=== PATIENT | female | born 1990 | race Asian ===

== ENCOUNTER 2020-03-02 07:52 | Outpatient (REF) | payer OTHER, SELFPAY ==
[2020-03-02 11:53] LABS: Alanine Aminotransferase 31 U/L (0-31); Anion Gap 15 (12-20); Aspartate Amino Transferase 19 U/L (5-31); Blood Urea Nitrogen 12 mg/dL (9-16); Calcium 8.3 mg/dL (8.4-10.2); Carbon Dioxide 20 mmol/L (22-29); Chloride 106 mmol/L (96-108); Cholesterol 169 mg/dL; Estimated Glomerular Filt Rate > 60; Glucose Fasting 140 mg/dL (60-99); HDL Cholesterol 36 mg/dL; LDL Cholesterol Calculated 110 mg/dl; Potassium 4.2 mmol/l (3.3-5.1); Sodium 137 mmol/L (135-145); Triglycerides 118 mg/dL
[2020-03-02 12:10] LABS: Estimated Average Glucose 151 mg/dL; Hemoglobin A1c % 6.9 %
[2020-03-02 12:17] LABS: Vitamin D 25-OH Total 37.6 ng/mL (>30)
== END 2020-03-02 07:53 | disposition home or self-care (01) ==
LOC: HO.HMGCLDS 07:52
PROVIDERS: PCP Internal Medicine; Visit Provider Internal Medicine
DX: E11.9 Type 2 diabetes mellitus without complications (principal); E78.5 Hyperlipidemia, unspecified; E66.01 Morbid (severe) obesity due to excess calories; Z68.39 Body mass index [BMI] 39.0-39.9, adult; E55.9 Vitamin D deficiency, unspecified
CPT/HCPCS: 80048; 80061; 82306; 83036; 84450; 84460

== ENCOUNTER 2020-05-25 07:50 | Outpatient (REF) | payer OTHER, SELFPAY ==
[2020-05-25 11:46] LABS: Alanine Aminotransferase 47 U/L (0-31); Anion Gap 15 (12-20); Aspartate Amino Transferase 31 U/L (5-31); Blood Urea Nitrogen 10 mg/dL (9-16); Calcium 8.6 mg/dL (8.4-10.2); Carbon Dioxide 22 mmol/L (22-29); Chloride 103 mmol/L (96-108); Cholesterol 136 mg/dL; Estimated Glomerular Filt Rate > 60; Glucose Fasting 144 mg/dL (60-99); HDL Cholesterol 39 mg/dL; LDL Cholesterol Calculated 74 mg/dl; Sodium 136 mmol/L (135-145); Triglycerides 117 mg/dL
[2020-05-25 11:54] LABS: Estimated Average Glucose 143 mg/dL; Hemoglobin A1c % 6.6 %
[2020-05-25 11:57] LABS: Creatinine Urine 72.85 mg/dL; Microalbum/Creatinine Ratio Ur 78.2 ug/mg cr
== END 2020-05-25 07:51 | disposition home or self-care (01) ==
LOC: HO.HMGCLDS 07:50
PROVIDERS: PCP Internal Medicine; Visit Provider Internal Medicine
DX: E66.9 Obesity, unspecified (principal); E78.5 Hyperlipidemia, unspecified; E11.9 Type 2 diabetes mellitus without complications; I10 Essential (primary) hypertension
CPT/HCPCS: 36415; 80048; 80061; 82043; 83036; 84450; 84460

== ENCOUNTER 2020-09-29 07:51 | Outpatient (REF) | payer OTHER, SELFPAY ==
[2020-09-29 12:21] LABS: Estimated Average Glucose 154 mg/dL
[2020-09-29 12:36] LABS: Alanine Aminotransferase 53 U/L (0-31); Anion Gap 13 (12-20); Aspartate Amino Transferase 36 U/L (5-31); Blood Urea Nitrogen 11 mg/dL (9-16); Calcium 8.7 mg/dL (8.4-10.2); Carbon Dioxide 23 mmol/L (22-29); Chloride 107 mmol/L (96-108); Cholesterol 161 mg/dL; Estimated Glomerular Filt Rate > 60; Glucose Fasting 137 mg/dL (60-99); HDL Cholesterol 34 mg/dL; LDL Cholesterol Calculated 98 mg/dl; Potassium 4.1 mmol/L (3.3-5.1); Sodium 139 mmol/L (135-145); Triglycerides 145 mg/dL
== END 2020-09-29 07:52 | disposition home or self-care (01) ==
LOC: HO.HMGCLDS 07:51
PROVIDERS: PCP Internal Medicine; Visit Provider Internal Medicine
DX: Z00.01 Encounter for general adult medical examination with abnormal findings (principal); E11.29 Type 2 diabetes mellitus with other diabetic kidney complication; E66.9 Obesity, unspecified; E78.5 Hyperlipidemia, unspecified; R80.9 Proteinuria, unspecified; I10 Essential (primary) hypertension
CPT/HCPCS: 36415; 80048; 80061; 83036; 84450; 84460

== ENCOUNTER 2021-01-11 20:20 | Emergency (ER) | payer OTHER, SELFPAY ==
--- NOTE | ~2021-01-11 | CT_ITS ---
EXAMINATION: CT ABDOMEN AND PELVIS WITHOUT CONTRAST CLINICAL INFORMATION: Right abdominal pain radiating to the back COMPARISON: 01/31/2019 TECHNIQUE: Multidetector volumetric imaging was performed from the superior aspect of the liver through the pubic symphysis. Sagittal and coronal reformatted images were obtained on the technologist's workstation. This CT examination was performed using dose optimization techniques as appropriate, variously including the following: *Automated exposure control *Adjustment of mA and/or kV according to patient size (this includes techniques or standardized protocols for targeted exams where dose is matched to indication/reason for exam; i.e. extremities or head) *Use of iterative reconstruction technique DLP: 846 mGy-cm FINDINGS: LUNG BASES: The visualized lung bases are unremarkable. LIVER, GALLBLADDER, AND BILIARY TREE: The liver is mildly enlarged and demonstrates mild hypoattenuation suggesting steatosis. No biliary ductal dilatation is present. The gallbladder is unremarkable with no evidence of radiopaque gallstones, gallbladder wall thickening, or obvious pericholecystic inflammatory changes. PANCREAS: Unremarkable. SPLEEN: Unremarkable. ADRENAL GLANDS: Unremarkable. KIDNEYS AND URETERS: There is a 3 mm calculus in the proximal right ureter with minimal hydronephrosis. There is a 4 mm calculus in the mid left kidney without hydronephrosis. BLADDER: Unremarkable. GASTROINTESTINAL TRACT: The small and large bowel are unremarkable. Status post appendectomy. No free fluid or free air is seen. ABDOMINAL WALL: No significant hernia is appreciated. LYMPH NODES: Normal. VASCULAR: Unremarkable. PELVIC VISCERA: Unremarkable. OSSEOUS STRUCTURES: Unremarkable. CT/CT abdomen pelvis wo con IMPRESSION: 1. Proximal right ureteral calculus measuring 3 mm with minimal hydronephrosis. 2. Left mid renal calculus without hydronephrosis.
[2021-01-11 21:03] VITALS: BP 154/87; PULSE 67; RESP 16; TEMP 36.8; O2SAT 98; BMI 38.9
--- NOTE | 2021-01-11 23:22 | ED.BACK ---
HPI - Back Pain/Injury General Chief Complaint: Abdominal Pain Stated Complaint: Cramping in legs and abdomen Time Seen by Provider: 01/11/21 23:22 Source: patient Mode of arrival: ambulatory Limitations: no limitations History of Present Illness HPI Narrative: Patient states that initially she had lower abdominal pain that now goes into the back and down the leg. Patient vomitted twice. Patient denies injury. No dysuria, no blood in urine, not . Denies fever MD elicited complaint: back pain Onset (ago): day(s) Timing: intermittent Severity: moderate Quality: other (cramping) Associated symptoms: other (nausea and vomiting) Related Data Home Medications Medication Instructions Recorded Confirmed flu vac qs 2019(4 yr up)CD(PF) ml IM 03/09/20 05/29/20 norgestimate 0.25 mg-ethinyl 1 tab PO DAILY 03/09/20 05/29/20 estradiol 35 mcg tablet cholecalciferol (vitamin D3) 25 25 mcg PO DAILY 05/29/20 05/29/20 mcg (1,000 unit) capsule multivitamin (Daily Multi-Vitamin) 1 tab PO DAILY 05/29/20 05/29/20 Previous Rx's Medication Instructions Recorded lisinopril 5 mg tablet 5 mg PO DAILY #90 tab 10/02/20 metformin 500 mg tablet 500 mg PO DAILY #30 cap 10/02/20 atorvastatin 10 mg tablet 10 mg PO DAILY #30 tab 01/05/21 naproxen 500 mg tablet (Naprosyn) 500 mg PO BID #20 tab 01/12/21 tamsulosin 0.4 mg capsule (Flomax) 0.4 mg PO BEDTIME #20 cap 01/12/21 Allergies Allergy/AdvReac Type Severity Reaction Status Date / Time No Known Allergies Allergy Verified 05/29/20 11:39 [No Known Allergies*] Review of Systems Constitutional: Constitutional: Reports no additional constitutional complaints Eyes: Eyes: Reports no additional eye complaints ENT: Denies dizziness Cardiovascular: Cardiovascular: Reports no additional cardiovascular complaints Respiratory: Respiratory: Reports as per HPI Gastrointestinal: Gastrointestinal: Reports no additional gastrointestinal complaints Genitourinary: Genitourinary: Reports no additional female genitourinary complaints Musculoskeletal: Musculoskeletal: Reports no additional musculoskeletal complaints Integumentary/Breasts: Skin/Breast: Denies rash Neurologic: Reports system reviewed and no additional complaints, except as documented, Denies dizziness and Denies Sensory deficit (Neuro) Psychiatric: Psychiatric: Denies anxiety REPLACED BY [facility] Past Medical History Medical History Diabetes mellitus with microalbuminuria, without long-term current use of insulin Dyslipidemia Obesity Surgical History History of laparoscopic appendectomy Family History Family History Father Unknown family medical history Mother Diabetes mellitus Sister No problems noted. Son No problems noted. Daughter No problems noted. Social History Social History Alcohol intake: never Patient Tobacco Use Status: Never used Tobacco Advance Directives: No Physical Exam Vital Signs: Vital Signs: Last Vital Signs Temp 98.3 F 01/11/21 21:03 Pulse 67 01/11/21 21:03 Resp 16 01/11/21 21:03 BP 154/87 H 01/11/21 21:03 Pulse Ox 98 01/11/21 21:03 Body Mass Index 38.9 Const: Other: patient appearing slightly uncomfortable General: healthy appearing Nutritional Appearance: average body habitus Orientation/consciousness: oriented to person and patient oriented x3 Limitations: no limitations HENMT: Head: Yes normal to inspection Ears: external ears normal General nose exam: Normal external nose present Mouth: Normal oral and palatal mucosa present and oropharynx normal Throat: Yes posterior oropharynx normal Eyes: General: appearance normal, both eyes and all related structures Neck: Other: supple Neck: Yes normal visual inspection Chest: Chest palpation & inspection: normal inspection of the chest Resp: Auscultation: clear to auscultation bilaterally Cardio: Jugular venous distension: no JVD Rate: regular rate Rhythm: regular rhythm Heart sounds: S1 normal heart sound present and S2 normal heart sound present GI: Other: minor right lower quadrant pain Palpation (GI): Tenderness to palpation present (GI) Back/Spine/Pelvis: Other: right SI Joint tenderness Skin: General skin exam: no rashes or lesions noted Neuro: General: oriented to person and patient oriented x3 Cranial nerves: Yes CN's II-XII intact bilaterally Motor exam (neuro): 5/5 motor strength present throughout Sensory Exam: No Sensory deficit (Neuro) Extrem: General: Yes normal to inspection Psych: Appearance: grossly normal Course Reevaluation(s) Reevaluation #1: patient with proximal 3mm stone with minimal hydronephrosis will dc home Time: 02:36 MDM - Back Pain/Injury Lab Data Result diagrams: 01/12/21 00:15 01/12/21 00:15 Labs: Lab Results 01/12/21 01/12/21 01/12/21 Range/Units 00:15 00:15 01:32 WBC 8.2 (4.8-10.8) X10*3/uL RBC 4.57 (4.20-5.50) X10*6/uL Hgb 13.3 (12.0-16.0) g/dl Hct 39.1 (37-47) % MCV 85.6 (80-98) fL MCH 29.1 (27.0-33.0) pg MCHC 34.0 (31.0-35.0) g/dl RDW 13.2 (11.0-16.0) % Plt Count 285 (160-400) X10*3/uL MPV 9.4 (9.4-12.3) fL Immature Gran % (Auto) 0.4 (0.0-0.4) % Neut % (Auto) 50.5 (45-73) % Lymph % (Auto) 41.5 H (20-40) % [place] % (Auto) 5.8 (2-11) % Eos % (Auto) 1.6 (0-4) % Baso % (Auto) 0.2 (0-2) % Lymph # (Auto) 3.4 (1.2-4.9) X10*3/uL [place] # (Auto) 0.5 (0.1-1.2) X10*3/uL Eos # (Auto) 0.1 (0.0-0.4) X10*3/uL Baso # (Auto) 0.0 (0.0-0.2) X10*3/uL Abs Immat Gran (auto) 0.03 (0.00-0.03) X10*3/uL Absolute Neuts (auto) 4.1 (2.0-8.3) X10*3/uL Absolute Nucleated RBC 0.000 (0.0-0.012) X10*3/uL Nucleated RBC % (auto) 0.0 (0.0-0.2) /100WBC Sodium 142 (135-145) mmol/L Potassium 4.2 (3.3-5.1) mmol/L Chloride 107 (96-108) mmol/L Carbon Dioxide 27 (22-29) mmol/L Anion Gap 12 (12-20) BUN 11 (9-16) mg/dL Creatinine 0.67 (0.5-1.4) mg/dL Estim Creat Clear Calc 131.9 Estimated GFR > 60 Random Glucose 111 (60-115) mg/dL Calcium 9.7 D (8.4-10.2) mg/dL Total Bilirubin 0.5 (0.0-1.0) mg/dL AST 19 D (5-31) U/L ALT 28 (0-31) U/L Alkaline Phosphatase 74 (39-117) U/L Total Protein 7.4 (6.5-8.0) g/dL Albumin 4.4 (3.5-5.0) g/dL Lipase 42 (8-78) U/L Urine Color STRAW Urine Appearance CLEAR Urine pH 6.0 (5.0-8.0) Ur Specific [place] <= 1.005 (1.005-1.025) Urine Protein NEG (NEG-TRACE) MG/DL Urine Glucose (UA) NEG (NEG) MG/DL Urine Ketones NEG (NEG) MG/DL Urine Blood 1+ H (NEG) Urine Nitrite NEG (NEG) Ur Leukocyte Esterase TRACE H (NEG) Urine RBC 5-9 H (0) /HPF Urine WBC 0-2 (0-4) /HPF Ur Squamous Epith Cells 2+ /LPF Ur Renal Epithelial Cell TRACE /LPF Urine Bacteria TRACE /LPF Urine Mucus TRACE /LPF Urine Test (NEGATIVE) 01/12/21 Range/Units 01:32 WBC (4.8-10.8) X10*3/uL RBC (4.20-5.50) X10*6/uL Hgb (12.0-16.0) g/dl Hct (37-47) % MCV (80-98) fL MCH (27.0-33.0) pg MCHC (31.0-35.0) g/dl RDW (11.0-16.0) % Plt Count (160-400) X10*3/uL MPV (9.4-12.3) fL Immature Gran % (Auto) (0.0-0.4) % Neut % (Auto) (45-73) % Lymph % (Auto) (20-40) % [place] % (Auto) (2-11) % Eos % (Auto) (0-4) % Baso % (Auto) (0-2) % Lymph # (Auto) (1.2-4.9) X10*3/uL [place] # (Auto) (0.1-1.2) X10*3/uL Eos # (Auto) (0.0-0.4) X10*3/uL Baso # (Auto) (0.0-0.2) X10*3/uL Abs Immat Gran (auto) (0.00-0.03) X10*3/uL Absolute Neuts (auto) (2.0-8.3) X10*3/uL Absolute Nucleated RBC (0.0-0.012) X10*3/uL Nucleated RBC % (auto) (0.0-0.2) /100WBC Sodium (135-145) mmol/L Potassium (3.3-5.1) mmol/L Chloride (96-108) mmol/L Carbon Dioxide (22-29) mmol/L Anion Gap (12-20) BUN (9-16) mg/dL Creatinine (0.5-1.4) mg/dL Estim Creat Clear Calc Estimated GFR Random Glucose (60-115) mg/dL Calcium (8.4-10.2) mg/dL Total Bilirubin (0.0-1.0) mg/dL AST (5-31) U/L ALT (0-31) U/L Alkaline Phosphatase (39-117) U/L Total Protein (6.5-8.0) g/dL Albumin (3.5-5.0) g/dL Lipase (8-78) U/L Urine Color Urine Appearance Urine pH (5.0-8.0) Ur Specific [place] (1.005-1.025) Urine Protein (NEG-TRACE) MG/DL Urine Glucose (UA) (NEG) MG/DL Urine Ketones (NEG) MG/DL Urine Blood (NEG) Urine Nitrite (NEG) Ur Leukocyte Esterase (NEG) Urine RBC (0) /HPF Urine WBC (0-4) /HPF Ur Squamous Epith Cells /LPF Ur Renal Epithelial Cell /LPF Urine Bacteria /LPF Urine Mucus /LPF Urine Test NEGATIVE (NEGATIVE) Imaging Data CT scan - abdomen: Radiologist's impression: IMPRESSION: 1.? Proximal right ureteral calculus measuring 3 mm with minimal hydronephrosis. 2.? Left mid renal calculus without hydronephrosis. Discharge Plan Discharge Clinical Impression: Calculus of kidney Hydronephrosis Qualifiers: Hydronephrosis type: with renal calculous obstruction Qualified Code(s): N13.2 - Hydronephrosis with renal and ureteral calculous obstruction Patient Disposition: Home, Self-Care Instructions: Kidney Stones (ED), Hydronephrosis (ED) Prescriptions: New naproxen [Naprosyn] 500 mg tablet 500 mg PO BID Qty: 20 RF: 0 tamsulosin [Flomax] 0.4 mg capsule 0.4 mg PO BEDTIME Qty: 20 RF: 0 No Action metformin 500 mg tablet 500 mg PO DAILY Qty: 30 RF: 6 atorvastatin 10 mg tablet 10 mg PO DAILY Qty: 30 RF: 3 multivitamin [Daily Multi-Vitamin] Tablet 1 tab PO DAILY RF: 0 cholecalciferol (vitamin D3) 25 mcg (1,000 unit) capsule 25 mcg PO DAILY RF: 0 Flucelvax Quad [id number] (PF) 60 mcg (15 mcg x 4)/0.5 mL syringe IM RF: 0 norgestimate-ethinyl estradiol 0.25-35 mg-mcg tablet 1 tab PO DAILY RF: 0 lisinopril 5 mg tablet 5 mg PO DAILY Qty: 90 RF: 1 Referrals: Shan Trent MD [Physician] - 1 week
[2021-01-12] MEDS: Ketorolac Tromethamine 15 MG/ML VIAL 30 MG IVPUSH (00:21)
[2021-01-12] MEDS: 0.9 % Sodium Chloride 1,000 ML 999 ML IVCONT ×2 (00:22→00:43)
[2021-01-12 00:31] LABS: MANUAL DIFF FLAG NO
--- NOTE | 2021-01-12 00:31 | PC.NURSE ---
IV PLACED TO RAC, LABS DRAWN TO LAB, NS X 2 UP AND RUNNING W/O SITE INTACT. PT MEDICATED FOR PAIN PER EMAR. WILL CONTINUE TO MONITOR PT.
[2021-01-12 00:32] LABS: Basophils Percent Auto 0.2 % (0-2); Eosinophils Absolute Auto 0.1 X10*3/uL (0.0-0.4); Eosinophils Percent Auto 1.6 % (0-4); Hematocrit 39.1 % (37-47); Hemoglobin 13.3 g/dl (12.0-16.0); Imm Gran Abs Auto 0.03 X10*3/uL (0.00-0.03); Imm Gran Pct Auto 0.4 % (0.0-0.4); Lymphocytes Absolute Auto 3.4 X10*3/uL (1.2-4.9); Lymphocytes Percent Auto 41.5 % (20-40); Mean Corpuscular Hemoglobin 29.1 pg (27.0-33.0); Mean Corpuscular Volume 85.6 fL (80-98); Mean Platelet Volume 9.4 fL (9.4-12.3); Monocytes Absolute Auto 0.5 X10*3/uL (0.1-1.2); Monocytes Percent Auto 5.8 % (2-11); Neutrophils Absolute Auto 4.1 X10*3/uL (2.0-8.3); Neutrophils Percent Auto 50.5 % (45-73); Platelet Count 285 X10*3/uL (160-400); Red Blood Count 4.57 X10*6/uL (4.20-5.50); Red Cell Distribution Width 13.2 % (11.0-16.0); White Blood Count 8.2 X10*3/uL (4.8-10.8)
[2021-01-12 00:46] LABS: Alanine Aminotransferase 28 U/L (0-31); Albumin Level 4.4 g/dL (3.5-5.0); Alkaline Phosphatase 74 U/L (39-117); Anion Gap 12 (12-20); Aspartate Amino Transferase 19 U/L (5-31); Bilirubin Total 0.5 mg/dL (0.0-1.0); Blood Urea Nitrogen 11 mg/dL (9-16); Calcium 9.7 mg/dL (8.4-10.2); Carbon Dioxide 27 mmol/L (22-29); Chloride 107 mmol/L (96-108); Creatinine Clr Calc Pharmacy 131.9; Estimated Glomerular Filt Rate > 60; Glucose Random 111 mg/dL (60-115); Lipase 42 U/L (8-78); Potassium 4.2 mmol/L (3.3-5.1); Sodium 142 mmol/L (135-145); Total Protein 7.4 g/dL (6.5-8.0)
[2021-01-12 01:44] LABS: Appearance Urine CLEAR; Color Urine STRAW; Glucose Urine UA NEG (NEG); Leukocyte Esterase Urine TRACE (NEG); Nitrite Urine NEG (NEG); Specific Gravity - Urine <= 1.005 (1.005-1.025); UACC Culture Trigger YES; Urine Blood 1+ (NEG); Urine Ketones NEG (NEG); Urine Protein NEG (NEG-TRACE)
[2021-01-12 01:51] LABS: UPreg QC Valid YES; Urine Pregnancy NEGATIVE (NEGATIVE)
[2021-01-12 02:10] LABS: Bacteria Urine TRACE /LPF; Mucus Urine TRACE /LPF; Renal Epithelial Cells Urine TRACE /LPF; Squamous Epithelial Cell Urine 2+ /LPF; WBC Urine 0-2 /HPF (0-4)
== END 2021-01-12 03:31 | disposition home or self-care (01) ==
PROVIDERS: Emergency Provider Emergency Medicine; PCP Internal Medicine
DX: N13.2 Hydronephrosis with renal and ureteral calculous obstruction (principal); M54.5 Low back pain; M79.605 Pain in left leg; M79.604 Pain in right leg; Z79.899 Other long term (current) drug therapy
CPT/HCPCS: 36415; 74176; 80053; 81001; 81025; 83690; 85025; 87086; 96361; 96374; 99284; J1885

== ENCOUNTER 2021-01-12 08:16 | Outpatient (REF) | payer OTHER, SELFPAY ==
[2021-01-12 11:46] LABS: Estimated Average Glucose 128 mg/dL; Hemoglobin A1c % 6.1 %
[2021-01-12 12:10] LABS: Alanine Aminotransferase 26 U/L (0-31); Anion Gap 11 (12-20); Aspartate Amino Transferase 20 U/L (5-31); Blood Urea Nitrogen 10 mg/dL (9-16); Calcium 8.5 mg/dL (8.4-10.2); Carbon Dioxide 23 mmol/L (22-29); Chloride 111 mmol/L (96-108); Cholesterol 147 mg/dL; Estimated Glomerular Filt Rate > 60; Glucose Fasting 128 mg/dL (60-99); HDL Cholesterol 31 mg/dL; LDL Cholesterol Calculated 87 mg/dl; Potassium 3.9 mmol/L (3.3-5.1); Sodium 141 mmol/L (135-145); Triglycerides 148 mg/dL
== END 2021-01-12 08:17 | disposition home or self-care (01) ==
LOC: HO.HMGCLDS 08:16
PROVIDERS: PCP Internal Medicine; Visit Provider Internal Medicine
DX: I10 Essential (primary) hypertension (principal); E78.5 Hyperlipidemia, unspecified; E66.01 Morbid (severe) obesity due to excess calories; Z68.39 Body mass index [BMI] 39.0-39.9, adult; E11.29 Type 2 diabetes mellitus with other diabetic kidney complication; R80.9 Proteinuria, unspecified
CPT/HCPCS: 36415; 80048; 80061; 83036; 84450; 84460

== ENCOUNTER → 2021-01-26 14:27 | Outpatient (BNVA) | payer OTHER, SELFPAY | PROVIDERS: PCP Internal Medicine ==

== ENCOUNTER 2021-04-04 15:36 | Outpatient (REF) | payer OTHER, SELFPAY ==
--- NOTE | ~2021-04-04 | US_ITS ---
EXAMINATION: US RETROPERITONEAL LIMITED (RENAL ONLY) CLINICAL INFORMATION: Calculus of ureter. COMPARISON: CT abdomen and pelvis 01/12/2021. Ultrasound abdomen complete 10/29/2016. TECHNIQUE: Real-time imaging of the kidneys. FINDINGS: RIGHT KIDNEY: 11.2 x 4.1 x 6.2 cm (SAG x AP x TRV). The kidney is normal in size, contour, and echogenicity. Renal cortical thickness is normal. No calculi or focal parenchymal lesions. No hydronephrosis. LEFT KIDNEY: 12.0 x 5.0 x 5.1 cm (SAG x AP x TRV). The kidney is normal in size, contour, and echogenicity. Renal cortical thickness is normal. There is a 5 x 3 x 5 mm stone in the midpole. No focal parenchymal lesions or hydronephrosis. US/US renal BI IMPRESSION: Normal right kidney. Left renal stone.
== END 2021-04-04 15:37 | disposition home or self-care (01) ==
LOC: HO.HMGCX 15:36
PROVIDERS: PCP Internal Medicine; Visit Provider Urology
DX: N20.0 Calculus of kidney (principal); N20.1 Calculus of ureter
CPT/HCPCS: 76775

== ENCOUNTER → 2021-04-30 15:03 | Outpatient (BNVA) | payer OTHER, SELFPAY | PROVIDERS: PCP Internal Medicine | DX: N20.1 Calculus of ureter (principal) | CPT/HCPCS: 99212 ==

== ENCOUNTER 2021-07-18 11:39 | Outpatient (REF) | payer OTHER, SELFPAY ==
[2021-07-18 13:59] LABS: Estimated Average Glucose 140 mg/dL; Hemoglobin A1c % 6.5 %
[2021-07-18 14:05] LABS: Alanine Aminotransferase 33 U/L (0-31); Anion Gap 9 (12-20); Aspartate Amino Transferase 19 U/L (5-31); Blood Urea Nitrogen 9 mg/dL (9-16); Calcium 9.2 mg/dL (8.4-10.2); Carbon Dioxide 25 mmol/L (22-29); Chloride 107 mmol/L (96-108); Cholesterol 158 mg/dL; Estimated Glomerular Filt Rate > 60; Glucose Fasting 105 mg/dL (60-99); HDL Cholesterol 38 mg/dL; LDL Cholesterol Calculated 99 mg/dl; Potassium 3.9 mmol/L (3.3-5.1); Sodium 137 mmol/L (135-145); Triglycerides 105 mg/dL
[2021-07-18 14:33] LABS: Microalbum/Creatinine Ratio Ur 21.4 ug/mg cr
[2021-07-20 17:36] LABS: TS Negative Control Passed; TS Panel A 1; TS Panel B 1; TS Positive Control Passed; TSpotTB Negative (Negative)
== END 2021-07-18 11:40 | disposition home or self-care (01) ==
LOC: HO.HMGCLDS 11:39
PROVIDERS: PCP Internal Medicine; Visit Provider Internal Medicine
DX: Z11.1 Encounter for screening for respiratory tuberculosis (principal); E11.29 Type 2 diabetes mellitus with other diabetic kidney complication; E66.9 Obesity, unspecified; E78.5 Hyperlipidemia, unspecified; R80.9 Proteinuria, unspecified; I10 Essential (primary) hypertension
CPT/HCPCS: 36415; 80048; 80061; 82043; 83036; 84450; 84460; 86481

== ENCOUNTER 2021-11-08 08:04 | Outpatient (REF) | payer OTHER, SELFPAY ==
--- NOTE | ~2021-11-08 | US_ITS ---
EXAMINATION: US RETROPERITONEAL LIMITED (RENAL ONLY) CLINICAL INFORMATION: Kidney stone. COMPARISON: Ultrasound renal 04/04/2021. CT abdomen pelvis 01/12/2021. TECHNIQUE: Real-time imaging of the kidneys. FINDINGS: RIGHT KIDNEY: 10.7 x 4.1 x 5.6 cm (SAG x AP x TRV). The kidney is normal in size, contour, and echogenicity. Renal cortical thickness is normal. No calculi or focal parenchymal lesions. No hydronephrosis. LEFT KIDNEY: 11.4 x 5.2 x 6.7 cm (SAG x AP x TRV). The kidney is normal in size, contour, and echogenicity. Renal cortical thickness is normal. No focal parenchymal lesions or hydronephrosis. 4 mm nonobstructing left midpole renal stone not significantly changed from prior previously 5 mm. Partially imaged liver is echogenic. US/US renal BI IMPRESSION: 4 mm nonobstructing left midpole renal stone is not significantly changed from prior. Partially imaged liver appears echogenic suggestive of hepatic steatosis or underlying liver disease. This could be further characterized with a dedicated right upper quadrant ultrasound if clinically indicated.
== END 2021-11-08 08:05 | disposition home or self-care (01) ==
LOC: HO.HMGCX 08:04
PROVIDERS: PCP Internal Medicine; Visit Provider Urology
DX: N20.1 Calculus of ureter (principal); N20.0 Calculus of kidney
CPT/HCPCS: 76775

== ENCOUNTER 2021-12-20 07:23 | Outpatient (REF) | payer OTHER, SELFPAY ==
[2021-12-20 11:53] LABS: Estimated Average Glucose 143 mg/dL; Hemoglobin A1c % 6.6 %
[2021-12-20 12:16] LABS: Vitamin D 25-OH Total 16.1 ng/mL (>30)
[2021-12-20 12:21] LABS: Alanine Aminotransferase 91 U/L (0-31); Anion Gap 15 (12-20); Aspartate Amino Transferase 55 U/L (5-31); Blood Urea Nitrogen 8 mg/dL (9-16); Calcium 8.9 mg/dL (8.4-10.2); Carbon Dioxide 21 mmol/L (22-29); Chloride 107 mmol/L (96-108); Cholesterol 147 mg/dL; Estimated Glomerular Filt Rate > 60; Glucose Fasting 165 mg/dL (60-99); HDL Cholesterol 38 mg/dL; LDL Cholesterol Calculated 85 mg/dl; Sodium 139 mmol/L (135-145); Triglycerides 122 mg/dL
[2021-12-20 12:41] LABS: Creatinine Urine 163.92 mg/dL; Microalbum/Creatinine Ratio Ur 19.5 ug/mg cr
== END 2021-12-20 07:24 | disposition home or self-care (01) ==
LOC: HO.HMGCLDS 07:23
PROVIDERS: PCP Internal Medicine; Visit Provider Internal Medicine
DX: Z00.01 Encounter for general adult medical examination with abnormal findings (principal); E66.01 Morbid (severe) obesity due to excess calories; Z68.39 Body mass index [BMI] 39.0-39.9, adult; E11.29 Type 2 diabetes mellitus with other diabetic kidney complication; T46.4X5A Adverse effect of angiotensin-converting-enzyme inhibitors, initial encounter; E78.5 Hyperlipidemia, unspecified; N20.0 Calculus of kidney; R05.8 Other specified cough; R80.9 Proteinuria, unspecified
CPT/HCPCS: 36415; 80048; 80061; 82043; 82306; 83036; 84450; 84460

== ENCOUNTER 2022-01-01 07:51 | Outpatient (REF) | payer OTHER, SELFPAY | END 2022-01-01 07:52 | disposition home or self-care (01) | LOC: HO.HMGCLDS 07:51 | PROVIDERS: PCP Internal Medicine; Visit Provider Physician Assistant | DX: Z13.89 Encounter for screening for other disorder (principal) ==

== ENCOUNTER 2022-01-02 07:37 | Outpatient (REF) | payer OTHER, SELFPAY ==
[2022-01-02 13:24] LABS: CDiff Gene PCR NEGATIVE (Negative)
[2022-01-02 13:30] LABS: Leukocytes Stool Qualitative NEGATIVE (NEGATIVE)
== END 2022-01-02 07:38 | disposition home or self-care (01) ==
LOC: HO.HMGCLDS 07:37
PROVIDERS: PCP Internal Medicine; Visit Provider Physician Assistant
DX: R19.5 Other fecal abnormalities (principal)
CPT/HCPCS: 36415; 87177; 87209; 87493; 89055

== ENCOUNTER 2022-04-23 08:14 | Outpatient (REF) | payer OTHER, SELFPAY ==
--- NOTE | ~2022-04-23 | US_ITS ---
EXAMINATION: US RETROPERITONEAL LIMITED (RENAL ONLY) CLINICAL INFORMATION: Calculus of kidney. COMPARISON: Renal ultrasound 11/08/2021 and 04/04/2021. CT abdomen and pelvis 01/12/2021. TECHNIQUE: Real-time imaging of the kidneys. FINDINGS: RIGHT KIDNEY: 11.6 x 4.0 x 6.7 cm (SAG x AP x TRV). The kidney is normal in size, contour, and echogenicity. Renal cortical thickness is normal. No calculi or focal parenchymal lesions. No hydronephrosis. LEFT KIDNEY: 12.4 x 5.2 x 6.8 cm (SAG x AP x TRV). The kidney is normal in size, contour, and echogenicity. Renal cortical thickness is normal. There is a 4 x 4 x 5 mm nonobstructing stone present in the mid left kidney seen previously. No focal parenchymal lesions or hydronephrosis. Incidental note made of an echogenic liver consistent with hepatic steatosis. US/US renal BI IMPRESSION: 1. Nonobstructing left renal calculus. 2. Hepatic steatosis.
== END 2022-04-23 08:15 | disposition home or self-care (01) ==
LOC: HO.HMGCX 08:14
PROVIDERS: PCP Internal Medicine
DX: N20.0 Calculus of kidney (principal)
CPT/HCPCS: 76775

== ENCOUNTER 2022-04-30 13:34 | Outpatient (AMB) | payer OTHER, SELFPAY ==
--- NOTE | 2022-04-30 13:44 | A.OFFPC_ITS ---
Vital Signs 04/30/22 13:46 Height 5 ft 2 in Weight 211 lb BMI 38.5 BP 100/70 Blood Pressure Location Rt brachial Position Sitting Pulse 74 Pulse Source Pulse Oximeter Pulse Oximetry (%) 99 Oxygen Delivery Method Room Air Intake Visit Reasons: c/o bilateral shoulder pain,fatigue and vertigo Intake Note: Pt is here today c/o bilateral shoulder pain, fatigue and vertigo: No injury noted Allergies lisinopril Adverse Reaction (Verified 01/02/23 03:18) Cough Medication List - Last Reconciled 04/30/22 by Alberta Rosales MD atorvastatin 10 mg PO DAILY flu vac qs 2019(4 yr up)CD(PF) mL IM losartan 25 mg PO DAILY metformin 500 mg PO DAILY norgestimate-ethinyl estradiol 0.25-35 mg-mcg 1 tab PO DAILY pyridoxine (vitamin B6) 100 mg PO DAILY 90 days Tobacco use date assessed: 04/30/22 HPI c/o bilateral shoulder pain,fatigue and vertigo HPI Details 32-year old lady with history of diabete s mellitus, right kidney stones, dyslipidemia and obesity, here today for her follow-up and complaining of pain in shoulders/upper back, accompanied by intermittent episodes of fatigue and occasional episodes of dizziness. These has been present now for the last several weeks. Denies any strenuous exertion, no history of any illness or recent injury. Denies any accompanying chest pain, no shortness of breath, no fever chills, no urinary symptoms or GI symptoms.. No history of green recent travel. [facility] Medical History Intermittent lightheadedness Fatigue Left renal stone Cough due to SINDHU inhibitor Right nephrolithiasis Ureterolithiasis Diabetes mellitus with microalbuminuria, without long-term current use of insulin Obesity Dyslipidemia Surgical History History of laparoscopic appendectomy Family History Father Unknown family medical history Mother Diabetes mellitus Sister No problems noted. Son No problems noted. Daughter No problems noted. 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 Juan Baker, Yessica Lam, Lexa Sheriff and colleagues, with an educational agnieszka from [employer]. Review of Systems Const Denies headache(s) and Denies weakness Eyes Denies change in vision ENT Denies headache(s), Denies nasal congestion, Denies nasal discharge and Denies sore throat Card Denies chest pain, Denies lightheadedness, Denies palpitations and Denies dyspnea Resp Denies chest congestion, Denies cough, Denies dyspnea and Denies wheezing GI Denies abdominal pain, Denies change in bowel habits and Denies heartburn Denies hematuria, Denies urinary frequency, Denies dysuria and Denies urinary urgency Musc Reports as per HPI Skin/Breast Denies rash Neuro Denies headache(s) and Denies weakness Psych Reports no additional complaints Endo Denies polydipsia, Denies polyuria and Denies palpitations Walter/Lymph Denies easy bruising Aller/Immun Denies seasonal rhinorrhea and Denies wheezing Physical exam (Primary Care) Vital Signs: Last Vital Signs Pulse 74 04/30/22 13:46 BP 100/70 04/30/22 13:46 Pulse Ox 99 04/30/22 13:46 Oxygen Delivery Method Room Air 04/30/22 13:46 BMI result Body Mass Index 38.5 BMI Assessment/Plan discussion: High BMI High, discussed plan: lifestyle, weight reduction, dietary and physical activity Tobacco/Smoking Status: Tobacco use Status Tobacco use date assessed 04/30/22 04/30/22 13:50 Patient Tobacco Use Status Never used Tobacco 04/30/22 13:50 e-Cigarette/Vaping Use Never Used 04/30/22 13:50 Thrive Assessment: Date of Thrive Assessment Date Thrive assessed 09/20/21 04/30/22 13:50 Const General: comfortable, no acute distress and alert Orientation/consciousness: patient oriented x3 Limitations: no limitations HENMT Ears: external ears normal, TM's normal bilaterally and EAC's normal General nose exam: Normal external nose present and No nasal discharge present Mouth: Normal oral and palatal mucosa present, oropharynx normal and moist mucous membranes Eyes General: appearance normal, both eyes and all related structures Conjunctivae: conjunctivae normal Sclerae: sclerae normal Pupils: Equal, round and reactive pupils present EOM: EOMs intact bilaterally Neck Neck: Yes full ROM, Yes no lymphadenopathy and Yes supple Resp Effort & Inspection: normal respiratory effort and able to speak in complete sentences Auscultation: clear to auscultation bilaterally Cardio Rate: regular rate Rhythm: regular rhythm Heart sounds: S1 normal heart sound present and S2 normal heart sound present GI Palpation (GI): Soft to palpation, nontender and no masses Auscultation: normal bowel sounds Back/Spine/Pelvis Other: Slight tenderness on palpation over trapezius muscles, no swelling or increased erythema or noted over affected area Skin General skin exam: no rashes or lesions noted Neuro General: patient oriented x3, gait normal, tone normal, moves all extremities, Normal light touch and pain sensation and no focal motor deficits Cranial nerves: Yes CN's II-XII intact bilaterally and Yes Equal, round and re active pupils present Cognition (Neuro): normal cognition Extrem General: Yes full ROM, Yes no joint enlargement, Yes no clubbing, cyanosis or edema and Yes no calf tenderness Assessment and Plan Assessment & Plan (1) Diabetes mellitus with microalbuminuria, without long-term current use of insulin: Code(s): E11.29 - Type 2 diabetes mellitus with other diabetic kidney complication; R80.9 - Proteinuria, unspecified Qualifiers: Diabetes mellitus type: type 2 Qualified Code(s): E11.29 - Type 2 diabetes mellitus with other diabetic kidney complication; R80.9 - Proteinuria, unspecified Plan: Ordered fasting blood sugar, basic metabolic panel and hemoglobin A1c. Continue with current medication, andn continue to check fasting blood sugar at home, maintain log and bring to next appointment for review. Reinforced diabetic diet and regular exercise with patient. Counseled regarding importance of yearly diabetes retinopathy screening. Patient advised to inspect feet daily, for any signs of injury, callus or infection. Compliance with diet and regular exercise again stressed. Blood pressure goal is less than 130/80, goal LDL is less than 100 and goal hemoglobin A1c is less than 7% (2) Dyslipidemia: Code(s): E78.5 - Hyperlipidemia, unspecified Plan: fasting lipid profile ordered . Continue with atorvastatin , in addition to adherence to low-cholesterol diet and regular exercise, at least 30 minutes 3 to 4 times a week. Advised patient to make healthy food choices, eat more fruits, vegetables, whole grains, wild caught fish and low-fat dairy. Limit amount of meat and fried or fatty food products, as well as processed foods and fast foods. (3) Fatigue: Code(s): R53.83 - Other fatigue Plan: Ordered CBC, total CK, mesial, comprehensive metabolic panel, TSH with reflex free T4, vitamin B12 vitamin-D level (4) Muscle strain of upper back: Code(s): S29.012A - Strain of muscle and tendon of back wall of thorax, initial encounter Plan: Advised to try taking aspd-[id number]-njnocxh Tylenol 650 mg 1 tablet every 8 hours. Apply moist heat to affected area on upper back. Return to the clinic if no improvement of symptoms noted. (5) Intermittent lightheadedness: Code(s): R42 - Dizziness and giddiness Plan: Labs ordered to check CBC, vitamin B12 vitamin-D and TSH with free T4 Orders: Orders Vitamin B6 05/01/22 S29.012A - Strain of muscle and tendon of back wall of thorax, initial encounter, E11.29 - Type 2 diabetes mellitus with other diabetic kidney complication, R80.9 - Proteinuria, unspecified, E66.01 - Morbid (severe) obesity due to excess calories, Z68.39 - Body mass index [BMI] 39.0-39.9, adult, E78.5 - Hyperlipidemia, unspecified, R53.83 - Other fatigue, R42 - Dizziness an d giddiness Vitamin B12 and Folate 05/01/22 S29.012A - Strain of muscle and tendon of back wall of thorax, initial encounter, E11.29 - Type 2 diabetes mellitus with other diabetic kidney complication, R80.9 - Proteinuria, unspecified, E66.01 - Morbid (severe) obesity due to excess calories, Z68.39 - Body mass index [BMI] 39.0- 39.9, adult, E78.5 - Hyperlipidemia, unspecified, R53.83 - Other fatigue, R42 - Dizziness and giddiness Vitamin D 25-OH Total 05/01/22 S29.012A - Strain of muscle and tendon of back wall of thorax, initial encounter, E11.29 - Type 2 diabetes mellitus with other diabetic kidney complication, R80.9 - Proteinuria, unspecified, E66.01 - Morbid (severe) obesity due to excess calories, Z68.39 - Body mass index [BMI] 39.0- 39.9, adult, E78.5 - Hyperlipidemia, unspecified, R53.83 - Other fatigue, R42 - Dizziness and giddiness Lipid Panel 05/01/22 S29.012A - Strain of muscle and tendon of back wall of thorax, initial encounter, E11.29 - Type 2 diabetes mellitus with other diabetic kidney complication, R80.9 - Proteinuria, unspecified, E66.01 - Morbid (severe) obesity due to excess calories, Z68.39 - Body mass index [BMI] 39.0-39.9, adult, E78.5 - Hyperlipidemia, unspecified, R53.83 - Other fatigue, R42 - Dizziness and giddiness Comprehensive [place]. Panel Fast 05/01/22 S29.012A - Strain of muscle and tendon of back wall of thorax, initial encounter, E11.29 - Type 2 diabetes mellitus with other diabetic kidney complication, R80.9 - Proteinuria, unspecified, E 66.01 - Morbid (severe) obesity due to excess calories, Z68.39 - Body mass index [BMI] 39.0-39.9, adult, E78.5 - Hyperlipidemia, unspecified, R53.83 - Other fatigue, R42 - Dizziness and giddiness TSH reflex Free T4 05/01/22 S29.012A - Strain of muscle and tendon of back wall of thorax, initial encounter, E11.29 - Type 2 diabetes mellitus with other diabetic kidney complication, R80.9 - Proteinuria, unspecified, E66.01 - Morbid (severe) obesity due to excess calories, Z68.39 - Body mass index [BMI] 39.0- 39.9, adult, E78.5 - Hyperlipidemia, unspecified, R53.83 - Other fatigue, R42 - Dizziness and giddiness Hemoglobin A1c 05/01/22 S29.012A - Strain of muscle and tendon of back wall of thorax, initial encounter, E11.29 - Type 2 diabetes mellitus with other diabetic kidney complication, R80.9 - Proteinuria, unspecified, E66.01 - Morbid (severe) obesity due to excess calories, Z68.39 - Body mass index [BMI] 39.0-39.9, adult, E78.5 - Hyperlipidemia, unspecified, R53.83 - Other fatigue, R42 - Dizziness and giddiness Complete Blood Count Auto Diff 05/01/22 S29.012A - Strain of muscle and tendon of back wall of thorax, initial encounter, E11.29 - Type 2 diabetes mellitus with other diabetic kidney complication, R80.9 - Proteinuria, unspecified, E66.01 - Morbid (severe) obesity due to excess calories, Z68.39 - Body mass index [BMI] 39.0-39.9, adult, E78.5 - Hyperlipidemia, unspecified, R53.83 - Other fatigue, R42 - Dizziness and giddiness Creatine Kinase Total 05/01/22 S29.012A - Strain of muscle and tendon of back wall of thorax, initial encounter, . - Type 2 diabetes mellitus with other diabetic kidney complication, R80.9 - Proteinuria, unspecified, E66.01 - Morbid (severe) obesity due to excess calories, Z68.39 - Body mass index [BMI] 39.0- 39.9, adult, E78.5 - Hyperlipidemia, unspecified, R53.83 - Other fatigue, R42 - Dizziness and giddiness Magnesium 05/01/22 S29.012A - Strain of muscle and tendon of back wall of thorax, initial encounter, . - Type 2 diabetes mellitus with other diabetic kidney complication, R80.9 - Proteinuria, unspecified, E66.01 - Morbid (severe) obesity due to excess calories, Z68.39 - Body mass index [BMI] 39.0-39.9, adult, E78.5 - Hyperlipidemia, unspecified, R53.83 - Other fatigue, R42 - Dizziness and giddiness Microalbumin, Random (w Creat) 05/01/22 E11. - Type 2 diabetes mellitus with other diabetic kidney complication, R80.9 - Proteinuria, unspecified Coding Level of Care Code Est Pt Level 4 (45126) Diagnoses Type 2 diabetes mellitus with microalbuminuria, without long-term current use of insulin ; R80.9 Diabetes mellitus type: type 2 Dyslipidemia E78.5 Fatigue R53.83 Muscle strain of upper back S29.012A Intermittent lightheadedness R42
[2022-04-30 13:46] VITALS: BP 100/70; PULSE 74; O2SAT 99; BMI 38.5
== END 2022-04-30 17:17 | disposition home or self-care (01) ==
LOC: HO.HMGC 13:34
PROVIDERS: PCP Internal Medicine; Visit Provider Internal Medicine
DX: E11.29 Type 2 diabetes mellitus with other diabetic kidney complication (principal); R80.9 Proteinuria, unspecified; E78.5 Hyperlipidemia, unspecified; R53.83 Other fatigue; S29.012A Strain of muscle and tendon of back wall of thorax, initial encounter; R42 Dizziness and giddiness
CPT/HCPCS: 99214

== ENCOUNTER 2022-05-01 07:29 | Outpatient (REF) | payer OTHER, SELFPAY ==
[2022-05-01 11:29] LABS: MANUAL DIFF FLAG NO
[2022-05-01 11:56] LABS: Basophils Percent Auto 0.6 % (0-2); Eosinophils Absolute Auto 0.2 X10*3/uL (0.0-0.4); Eosinophils Percent Auto 2.1 % (0-4); Hematocrit 37.1 % (37.0-47.0); Hemoglobin 12.4 g/dl (12.0-16.0); Imm Gran Abs Auto 0.03 X10*3/uL (0.00-0.03); Imm Gran Pct Auto 0.4 % (0.0-0.4); Lymphocytes Absolute Auto 2.6 X10*3/uL (1.2-4.9); Lymphocytes Percent Auto 35.8 % (20-40); Mean Corpuscular HGB Conc 33.4 g/dl (31.0-35.0); Mean Corpuscular Hemoglobin 28.2 pg (27.0-33.0); Mean Corpuscular Volume 84.5 fL (80.0-98.0); Mean Platelet Volume 9.4 fL (9.4-12.3); Monocytes Absolute Auto 0.5 X10*3/uL (0.1-1.2); Monocytes Percent Auto 6.4 % (2-11); Neutrophils Absolute Auto 3.9 x10*3/uL (2.0-8.3); Neutrophils Percent Auto 54.7 % (45-73); Platelet Count 339 X10*3/uL (160-400); Red Blood Count 4.39 X10*6/uL (4.20-5.50); Red Cell Distribution Width 13.4 % (11.0-16.0); White Blood Count 7.2 X10*3/uL (4.8-10.8)
[2022-05-01 12:23] LABS: Microalbum/Creatinine Ratio Ur 20.6 ug/mg cr
[2022-05-01 12:33] LABS: Estimated Average Glucose 137 mg/dL; Hemoglobin A1C 149.9111 umol/L; Hemoglobin A1c % 6.4 %
[2022-05-01 13:16] LABS: Alanine Aminotransferase 57 U/L (0-31); Albumin Level 4.3 g/dL (3.5-5.0); Alkaline Phosphatase 60 U/L (39-117); Anion Gap 14 (12-20); Aspartate Amino Transferase 41 U/L (5-31); Bilirubin Total 0.8 mg/dL (0.0-1.0); Blood Urea Nitrogen 7 mg/dL (9-16); Calcium 9.1 mg/dL (8.4-10.2); Carbon Dioxide 20 mmol/L (22-29); Chloride 108 mmol/L (96-108); Cholesterol 150 mg/dL; Estimated Glomerular Filt Rate > 60; Glucose Fasting 148 mg/dL (60-99); HDL Cholesterol 32 mg/dL; LDL Cholesterol Calculated 96 mg/dl; Magnesium 1.8 mg/dL (1.6-2.6); Potassium 3.6 mmol/L (3.3-5.1); Sodium 138 mmol/L (135-145); Total Protein 7.2 g/dL (6.5-8.0); Triglycerides 110 mg/dL
[2022-05-01 13:18] LABS: TSH reflex Free T4 1.97 uIU/mL (0.32-4.0); Vitamin D 25-OH Total 15.2 ng/mL (>30)
[2022-05-01 13:31] LABS: Folate 9.4 ng/mL (> or = 4.0); Vitamin B12 243 pg/mL (200-900)
[2022-05-05 20:08] LABS: Vitamin B6 80.7 ng/mL (2.1-21.7)
== END 2022-05-01 07:30 | disposition home or self-care (01) ==
LOC: HO.HMGCLDS 07:29
PROVIDERS: PCP Internal Medicine; Visit Provider Internal Medicine
DX: E66.01 Morbid (severe) obesity due to excess calories (principal); Z68.39 Body mass index [BMI] 39.0-39.9, adult; E11.29 Type 2 diabetes mellitus with other diabetic kidney complication; E78.5 Hyperlipidemia, unspecified; R42 Dizziness and giddiness; R53.83 Other fatigue; R80.9 Proteinuria, unspecified; S29.012A Strain of muscle and tendon of back wall of thorax, initial encounter
CPT/HCPCS: 36415; 80053; 80061; 82043; 82306; 82550; 82607; 82746; 83036; 83735; 84207; 84443; 85025

== ENCOUNTER → 2022-06-04 10:05 | Outpatient (BNVA) | payer OTHER, SELFPAY | PROVIDERS: PCP Internal Medicine; Visit Provider Nurse Practitioner Family | DX: N20.0 Calculus of kidney (principal) | CPT/HCPCS: 99212 ==

== ENCOUNTER → 2022-07-18 08:26 | Outpatient (BNVA) | payer SELFPAY | PROVIDERS: PCP Internal Medicine | DX: Z13.89 Encounter for screening for other disorder (principal) ==

== ENCOUNTER 2022-11-28 08:18 | Outpatient (REF) | payer OTHER, SELFPAY ==
--- NOTE | ~2022-11-28 | US_ITS ---
EXAMINATION: US RETROPERITONEAL LIMITED (RENAL ONLY) CLINICAL INFORMATION: Calculus of kidney. COMPARISON: Renal ultrasound 04/23/2022 and 11/08/2021. CT abdomen and pelvis 01/12/2021. TECHNIQUE: Real-time imaging of the kidneys. FINDINGS: RIGHT KIDNEY: 11.7 x 4.9 x 6.2 cm (SAG x AP x TRV). The kidney is normal in size, contour, and echogenicity. Renal cortical thickness is normal. No calculi or focal parenchymal lesions. No hydronephrosis. LEFT KIDNEY: 12.7 x 5.5 x 6.2 cm (SAG x AP x TRV). The kidney is normal in size, contour, and echogenicity. Renal cortical thickness is normal. No focal parenchymal lesions or hydronephrosis. 6 mm nonobstructing mid pole renal stone, previously 5 mm. Partially imaged liver appears echogenic suggestive of hepatic steatosis or underlying liver disease. This could be further characterized with a dedicated right upper quadrant ultrasound if clinically indicated. US/US renal BI IMPRESSION: * A 6 mm nonobstructing left mid pole renal stone, previously 5 mm. * Partially imaged liver appears echogenic suggestive of hepatic steatosis or underlying liver disease. This could be further characterized with a dedicated right upper quadrant ultrasound if clinically indicated.
== END 2022-11-28 08:19 | disposition home or self-care (01) ==
LOC: HO.HMGCX 08:18
PROVIDERS: PCP Internal Medicine; Visit Provider Nurse Practitioner Family
DX: N20.0 Calculus of kidney (principal)
CPT/HCPCS: 76775

== ENCOUNTER 2022-12-11 14:26 | Outpatient (REF) | payer OTHER, SELFPAY | END 2022-12-11 14:27 | disposition home or self-care (01) | LOC: HO.LNP 14:26 | PROVIDERS: Visit Provider Nurse Practitioner Family | DX: N20.0 Calculus of kidney (principal); R30.0 Dysuria; R39.89 Other symptoms and signs involving the genitourinary system; E11.9 Type 2 diabetes mellitus without complications; E78.5 Hyperlipidemia, unspecified; E66.9 Obesity, unspecified; Z79.4 Long term (current) use of insulin | CPT/HCPCS: 81003; 87086; 99212 ==

== ENCOUNTER 2022-12-11 14:26 | Outpatient (AMB) | payer OTHER, SELFPAY ==
--- NOTE | 2022-12-11 14:38 | MHC.OFFVIS ---
Intake Intake Visit Reasons: 6m follow up/US Intake Note: Patient presents today for ultrasound follow up/kidney stones (imaging 11/28/22) Urology Medications: none Blood thinners: none Systems Program Manager Required: No Accompanied by: Self / Same As Patient Allergies lisinopril Adverse Reaction (Verified 12/11/22 15:27) Cough Medication List - Last Reconciled 12/11/22 by RAJAN Meza insulin glargine (Lantus Solostar U-100 Insulin) 30 units subcut BEDTIME insulin lispro subcut multivitamin 1 tab PO DAILY HPI HPI Comments History of Present Illness Details Dylon is a pleasant 32-year-old female patient of Dr. Rosales. She has a past medical history of diabetes mellitus, dyslipidemia, nephrolithiasis, and obesity. She presents to the office today for follow-up regarding her nephrolithiasis. When asked patient reports to be doing well. She discusses getting ready for the arrival of her baby girl hopefully within the next 2 weeks. Recent renal ultrasound results reviewed with the patient today. Right kidney with no calculi, lesions, and or hydronephrosis noted. Left kidney with no lesions or hydronephrosis. 6 mm nonobstructing mid pole renal stone. When asked patient reports to be drinking plenty of water daily. She reports over the last 2-3 days noting bladder pressure, dysuria, and urinary frequency. 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 In office urinalysis results today reviewed with the patient 3+ leukocytes negative nitrates. She reports she will continue to follow with OB-[employer] SE[employer]PER[employer]OR regarding her urinary issues as she follows with them frequnelty and will be giving within the next two weeks. She otherwise denies urinary urgency, incontinence, nocturia, hematuria, foul smelling urine, changes to urinary stream, flank pain, fever, and or chills. She is happy with her current voiding parameters. Discussed, educated, instructed on the importance of drinking adequate amount of fluid daily. Discussed adding 1 oz of lemon juice to water daily. She otherwise offers no issues or concerns at this time. [facility] Medical History Cough due to SINDHU inhibitor Diabetes mellitus with microalbuminuria, without long-term current use of insulin Dyslipidemia Fatigue Intermittent lightheadedness Left renal stone Obesity Right nephrolithiasis Ureterolithiasis Surgical History History of laparoscopic appendectomy Family History Father Unknown family medical history Mother Diabetes mellitus Sister No problems noted. Son No problems noted. Daughter No problems noted. 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 needs: No Hearing needs: No Vision needs: Yes Review of Systems Const Reports as per HPI Eyes Reports no additional complaints ENT Reports no additional complaints Card Reports no additional complaints Resp Reports no additional complaints GI Reports as per HPI Reports as per HPI Musc Reports no additional complaints Neuro Reports no additional complaints Psych Reports no additional complaints Endo Details: Patient reports she is diabetic Reports as per HPI Walter/Lymph Reports no additional complaints Aller/Immun Reports no additional complaints Physical Exam Const General: cooperative, healthy appearing, comfortable, no acute distress, well developed, alert and awake Orientation/consciousness: patient oriented x3 Limitations: no limitations HEENT Head: Yes normal to inspection, Yes normocephalic and Yes atraumatic Ears: hearing grossly normal bilaterally Eyes General: appearance normal, both eyes and all related structures Neck Neck: Yes normal visual inspection and Yes trachea midline Chest Chest palpation & inspection: normal inspection of the chest Resp Effort & Inspection: normal respiratory effort and able to speak in complete sentences Cardio Rate: regular rate GI Inspection: Yes normal to inspection General: Yes no CVA tenderness Back/Spine/Pelvis Back: no CVA tenderness Skin General skin exam: no rashes or lesions noted Neuro General: patient oriented x3 Extrem General: Yes normal to inspection Psych Appearance: grossly normal and well kempt Mental Status: mental status grossly normal Speech and movement: Normal speech and movement present and Clear speech present Affect: normal affect Attitude: cooperative Thought process: Normal thought process present Thought content: Normal thought content present Insight: Fair insight present (Psych) Judgement: Fair judgement present (Psych) Results AMB Urinalysis, Automated UA Leukoctes 500 Jay/uL Last Edit by Cici Lima on 12/11/22 14:57 UA Nitrite Last Edit by Benjamínyce Janie on 12/11/22 14:57 UA Urobilinogen 0.2 mg/dL Last Edit by Benjamínyce Janie on 12/11/22 14:57 UA Protein 0 mg/dL Last Edit by Brandyce Bress on 12/11/22 14:57 UA pH 6.0 Last Edit by [employer]agination [employer] Bress on 12/11/22 14:57 UA Blood 0 Griffin/uL Last Edit by [employer] Bress on 12/11/22 14:57 UA Specific [place] 1.015 Last Edit by [employer]ce Breesdras on 12/11/22 14:57 UA Ketone Last Edit by [employer]ce CyrusOneesdras on 12/11/22 14:57 UA Bilirubin 0 mg/dL Last Edit by Imagination Technologieshood Lima on 12/11/22 14:57 UA Glucose 0 mg/dL Last Edit by [employer] Lima on 12/11/22 14:57 Results Reviewed Results Reviewed: Laboratory Last Values Urine pH (Auto) 6.0 12/11/22 14:38 Specific [place] (Auto) 1.015 12/11/22 14:38 Urine Protein (Auto) 0 mg/dL 12/11/22 14:38 Glucose (UA)(Auto) 0 mg/dL 12/11/22 14:38 Urine Blood (Auto) 0 Griffin/uL 12/11/22 14:38 Urine Bilirubin (Auto) 0 mg/dL 12/11/22 14:38 Urine Urobilinogen (Auto) 0.2 mg/dL 12/11/22 14:38 Leukocyte Esterase (Auto) 500 Jay/uL 12/11/22 14:38 Date of Service: 11/28/22 EXAMINATION: US RETROPERITONEAL LIMITED (RENAL ONLY) FINDINGS: RIGHT KIDNEY: 11.7 x 4.9 x 6.2 cm (SAG x AP x TRV). The kidney is normal in size, contour, and echogenicity. Renal cortical thickness is normal. No calculi or focal parenchymal lesions. No hydronephrosis. LEFT KIDNEY: 12.7 x 5.5 x 6.2 cm (SAG x AP x TRV). The kidney is normal in size, contour, and echogenicity. Renal cortical thickness is normal. No focal parenchymal lesions or hydronephrosis. 6 mm nonobstructing mid pole renal stone, previously 5 mm. ?Partially imaged liver appears echogenic suggestive of hepatic steatosis or underlying liver disease. This could be further characterized with a dedicated right upper quadrant ultrasound if clinically indicated. US/US renal BI IMPRESSION: *? A 6 mm nonobstructing left mid pole renal stone, previously 5 mm. *? Partially imaged liver appears echogenic suggestive of hepatic steatosis or underlying liver disease. This could be further characterized with a dedicated right upper quadrant ultrasound if clinically indicated. Assessment & Plan Assessment & Plan (1) Left renal stone: Code(s): N20.0 - Calculus of kidney (2) Dysuria: Code(s): R30.0 - Dysuria (3) Sensation of pressure in bladder area: Code(s): R39.89 - Other symptoms and signs involving the genitourinary system Plan In office urinalysis results reviewed with the patient today; as noted above Recent renal imaging results reviewed with the patient today; as noted above. Discussed, educated, encouraged to continue drinking plenty of water daily. Discussed adding 1 oz of lemon juice to water daily. Will continue with surveillance monitoring Renal ultrasound in 6 months Follow-up in 6 months with imaging to be completed prior; or sooner with any issues, concerns, and or questions Orders: Orders US renal BI 6 Months N20.0 - Calculus of kidney Urine Culture Today N20.0 - Calculus of kidney AMB Urinalysis Automated Today Z13.9 - Encounter for screening, unspecified Patient Instructions: The patient had an opportunity to ask questions regarding the treatment plan. All questions were answered. Physical exam, labs, and imaging were discussed and reviewed in detail. As well as risks, benefits, and discussion of treatment choices. No major barriers to understanding were identified. The patient expressed understanding and agreement with the above treatment plan. The patient was made aware they should contact our office by phone for worsening of their current condition, the appearance of new symptoms, or with any questions or concerns. Compliance is encouraged with any medications and follow up testing that is ordered. It is a privilege to be allowed the opportunity to participate in? your urological care.? Again, if you have any questions or concerns If you have any questions or concerns please do not hesitate to contact me. The office is [phone]. This note is constructed using voice recognition software. While every effort has been made to ensure accuracy bacteriologist food errors may have been included. Yours sincerely, DIPIKA Meza-JJ Coding Level of Care Code Est Pt Level 3 (75063) Diagnoses Left renal stone N20.0 Dysuria R30.0 Sensation of pressure in bladder area R39.89
== END 2022-12-11 16:57 | disposition home or self-care (01) ==
PROVIDERS: PCP Internal Medicine; Visit Provider Nurse Practitioner Family
DX: N20.0 Calculus of kidney (principal); R30.0 Dysuria; R39.89 Other symptoms and signs involving the genitourinary system; Z13.9 Encounter for screening, unspecified
CPT/HCPCS: 99213

== ENCOUNTER 2023-01-07 09:43 | Outpatient (REF) | payer OTHER, SELFPAY ==
[2023-01-07 11:40] LABS: MANUAL DIFF FLAG NO
[2023-01-07 11:49] LABS: Basophils Absolute Auto 0.1 X10*3/uL (0.0-0.2); Basophils Percent Auto 0.7 % (0-2); Eosinophils Absolute Auto 0.2 X10*3/uL (0.0-0.4); Eosinophils Percent Auto 2.1 % (0-4); Hematocrit 39.6 % (37.0-47.0); Hemoglobin 12.7 g/dl (12.0-16.0); Imm Gran Abs Auto 0.09 X10*3/uL (0.00-0.03); Imm Gran Pct Auto 1.2 % (0.0-0.4); Lymphocytes Absolute Auto 2.3 X10*3/uL (1.2-4.9); Lymphocytes Percent Auto 31.1 % (20-40); Mean Corpuscular HGB Conc 32.1 g/dl (31.0-35.0); Mean Corpuscular Hemoglobin 27.3 pg (27.0-33.0); Mean Platelet Volume 8.9 fL (9.4-12.3); Monocytes Absolute Auto 0.4 X10*3/uL (0.1-1.2); Monocytes Percent Auto 5.1 % (2-11); Neutrophils Absolute Auto 4.5 x10*3/uL (2.0-8.3); Neutrophils Percent Auto 59.8 % (45-73); Platelet Count 428 X10*3/uL (160-400); Red Blood Count 4.66 X10*6/uL (4.20-5.50); Red Cell Distribution Width 14.5 % (11.0-16.0); White Blood Count 7.5 X10*3/uL (4.8-10.8)
[2023-01-07 12:15] LABS: Estimated Average Glucose 117 mg/dL; Hemoglobin A1C 127.9168 umol/L; Hemoglobin A1c % 5.7 % (<6.0)
[2023-01-07 13:09] LABS: Alanine Aminotransferase 39 U/L (0-31); Anion Gap 14 (12-20); Aspartate Amino Transferase 40 U/L (5-31); Bilirubin Total 0.4 mg/dL (0.0-1.0); Blood Urea Nitrogen 9 mg/dL (9-16); Calcium 9.5 mg/dL (8.4-10.2); Carbon Dioxide 23 mmol/L (22-29); Chloride 108 mmol/L (96-108); Cholesterol 255 mg/dL (<200); Estimated Glomerular Filt Rate > 60; Glucose Fasting 101 mg/dL (60-99); HDL Cholesterol 37 mg/dL (>40); LDL Cholesterol Calculated 177 mg/dL (<100); Potassium 3.8 mmol/L (3.3-5.1); Sodium 141 mmol/L (135-145); Total Protein 7.5 g/dL (6.5-8.0); Triglycerides 208 mg/dL (<150)
[2023-01-07 13:10] LABS: Alkaline Phosphatase 86 U/L (39-117)
[2023-01-07 13:16] LABS: Vitamin D 25-OH Total 31.5 ng/mL (>30)
== END 2023-01-07 09:44 | disposition home or self-care (01) ==
LOC: HO.HMGCLDS 09:43
PROVIDERS: PCP Internal Medicine; Visit Provider Internal Medicine
DX: R53.83 Other fatigue (principal); E11.29 Type 2 diabetes mellitus with other diabetic kidney complication; R80.9 Proteinuria, unspecified; E66.01 Morbid (severe) obesity due to excess calories; E78.5 Hyperlipidemia, unspecified; Z68.39 Body mass index [BMI] 39.0-39.9, adult
CPT/HCPCS: 36415; 80053; 80061; 82306; 83036; 85025

== ENCOUNTER 2023-01-10 10:23 | Outpatient (AMB) | payer OTHER, SELFPAY ==
[2023-01-10 10:36] VITALS: BP 118/78; PULSE 84; O2SAT 98; BMI 37.5
--- NOTE | 2023-01-10 10:36 | A.OFFPC_ITS ---
<Statement entered by Alberta Rosales MD - 08/25/24 15:21> This note has been administratively?closed. Vital Signs 01/10/23 10:36 Height 5 ft 2 in Weight 205 lb BMI 37.5 BP 118/78 Blood Pressure Location Lt brachial Position Sitting Pulse 84 Pulse Source Pulse Oximeter Pulse Oximetry (%) 98 Intake Visit Reasons: f/u DM and lipids Intake Note: Patient is here today for her f/u Allergies lisinopril Adverse Reaction (Verified 01/10/23 11:31) Cough Medication List - Last Reconciled 01/10/23 by Alberta Rosales MD No Known Home Meds Tobacco use date assessed: 01/10/23 Dental Screening Dental Screen Date: 01/10/23 Did you have a dental visit in the last 12 months?: No Did you have a dental problem in the last 6 months where you did not have access to dental care?: No Was dental information given to patient?: Patient has dentist HPI f/u DM and lipids HPI Details 32-year-old lady currently 2 weeks postp artum with her 3rd child delivered by normal vaginal delivery, here today for follow-up. She has diabetes mellitus previously was on insulin during her , with recent hemoglobin A1c at 5.7%. She has dyslipidemia, has been off atorvastatin during her , her latest fasting will lipids showed elevated triglycerides and LDL cholesterol. She has also been off her losartan, but blood pressure has been stable and controlled without medication. Patient states that her OBGYN already sent a prescription refill for her metformin 500 mg taken once a day. [facility] Medical History (Updated 01/10/23 @ 11:35 by Alberta Rosales MD) Cough due to SINDHU inhibitor Right nephrolithiasis Ureterolithiasis Diabetes mellitus with microalbuminuria, without long-term current use of insulin Obesity Dyslipidemia Surgical History (Updated 01/02/23 @ 03:43 by Alberta Rosales MD) History of tubal ligation History of laparoscopic appendectomy Family History Father Unknown family medical history Mother Diabetes mellitus Sister No problems noted. Son No problems noted. Daughter No problems noted. 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 How often do you have a drink containing alcohol?: Never Total Score: 0 ANDRESSA-7 AMB Questionnaire ANDRESSA-7 Date ANDRESSA - 7 assessed: 09/20/21 Source: Developed by Drs. Juan Baker, Yessica Lam, Lexa Sheriff and colleagues, with an educational agnieszka from [employer]. Physical exam (Primary Care) Vital Signs: Last Vital Signs Pulse 84 01/10/23 10:36 BP 118/78 01/10/23 10:36 Pulse Ox 98 01/10/23 10:36 BMI result Body Mass Index 37.5 Tobacco/Smoking Status: Tobacco use Status Tobacco use date assessed 01/10/23 01/10/23 10:38 Patient Tobacco Use Status Never used Tobacco 01/10/23 10:38 e-Cigarette/Vaping Use Never Used 01/10/23 10:38 Thrive Assessment: Date of Thrive Assessment Date Thrive assessed 09/20/21 01/10/23 10:38 Results Reviewed Results Reviewed: ENTERED: 01/07/[address]: ORDERED: CBC Auto Diff Test Result Flag Reference Site WBC 7.5 4.8-10.8 X10*3/uL RBC 4.66 4.20-5.50 X10*6/uL HGB 12.7 12.0-16.0 g/dl HCT 39.6 37.0-47.0 % MCV 85.0 80.0-98.0 fL MCH 27.3 27.0-33.0 pg MCHC 32.1 31.0-35.0 g/dl RDW 14.5 11.0-16.0 % PLT 428 # H 160-400 X10*3/uL ENTERED: 01/07/[address]: ORDERED: CMP Fast, Lipid Panel, Vitamin D 25-OH Test Result Flag Reference Site Sodium 141 135-145 mmol/L Potassium 3.8 3.3-5.1 mmol/L CL 108 96-108 mmol/L CO2 23 22-29 mmol/L Gap 14 12-20 BUN 9 9-16 mg/dL Creat 0.66 0.5-1.4 mg/dL EGFR > 60 NOTE: For -Hungarian individuals, multiply the r esult by 1.210. Chronic Kidney Disease: Estimated GFR < 60 mL/min/1.73m2 Severe Kidney Disease: Estimated GFR < 15 mL/min/1.73m2 FBS 101 H 60-99 mg/dL A fasting glucose from 100-125 mg/dl is considered impaired (pre-diabetes). CA 9.5 8.4-10.2 mg/dL Total Bili 0.4 0.0-1.0 mg/dL AST (GOT) 40 H 5-31 U/L ALT (GPT) 39 H 0-31 U/L Protein, Total 7.5 6.5-8.0 g/dL Alb 4.0 3.5-5.0 g/dL Triglyceride 208 H <150 mg/dL Desirable Triglyceride: less than 150 mg/dL Borderline High Triglyceride 150-199 mg/dL High Triglyceride: 200-499 mg/dL Very High Triglyceride: greater than or equal to 5OO mg/dL Cholesterol 255 H <200 mg/dL Desirable Cholesterol: less than 200 mg/dL Borderline High Cholesterol: 200-239 mg/dL High Cholesterol: greater than 239 mg/dL LDL Calculated 177 H <100 mg/dL Desirable LDL: less than 100 mg/dL Near Optimal/Above Optimal LDL: 110-129 mg/dL Borderline High LDL: 130-159 mg/dL High LDL: 160-189 mg/dL Very High LDL: greater than or equal to 190 mg/dL HDL 37 L >40 mg/dL Desirable HDL: greater than 40 mg/dL Note: This HDL assay may give artificially low results in patients with liver disease. Alk Phos 86 39-117 U/L Vit D 25-OH Tot 31.5 >30 ng/mL Health Based Reference Values* < 20 ng/mL Deficient 20-30 ng/mL Insufficient > 30 ng/mL Sufficient Laboratory Tests 01/07/23 09:47 Estimat Average Glucose 117 Hemoglobin A1c % 5.7 Assessment and Plan Assessment & Plan (1) Diabetes mellitus with microalbuminuria, without long-term current use of insulin: Code(s): E11.29 - Type 2 diabetes mellitus with other diabetic kidney complication; R80.9 - Proteinuria, unspecified Qualifiers: Diabetes mellitus type: type 2 Qualified Code(s): E11.29 - Type 2 diabetes mellitus with other diabetic kidney complication; R80.9 - Proteinuria, unspecified Plan: Will restart back on metformin 500 mg once a day. Hold off on restarting losartan while she is , check blood pressure at least 2 to 3 times a week with a goal blood pressure of less than 130/80 (2) Dyslipidemia: Code(s): E78.5 - Hyperlipidemia, unspecified Plan: Restart atorvastatin 10 mg but only take 1 tablet twice a week recheck fasting lipids in 3 months, adhere to a low-cholesterol diet and start getting regular exercise Orders: Orders Hemoglobin A1c 03/21/23 - Type 2 diabetes mellitus with other diabetic kidney complication, E66.9 - Obesity, unspecified, E78.5 - Hyperlipidemia, unspecified, R80.9 - Proteinuria, unspecified Basic Metabolic Panel Fasting 03/21/23 - Type 2 diabetes mellitus with other diabetic kidney complication, E66.9 - Obesity, unspecified, E78.5 - Hyperlipidemia, unspecified, R80.9 - Proteinuria, unspecified Vitamin D 25-OH Total 03/21/23 - Type 2 diabetes mellitus with other diabetic kidney complication, E66.9 - Obesity, unspecified, E78.5 - Hyperlipidemia, unspecified, R80.9 - Proteinuria, unspecified Alanine Aminotransferase 03/21/23 - Type 2 diabetes mellitus with other diabetic kidney complication, E66.9 - Obesity, unspecified, E78.5 - Hyperlipidemia, unspecified, R80.9 - Proteinuria, unspecified Aspartate Amino Transferase 03/21/23 - Type 2 diabetes mellitus with other diabetic kidney complication, E66.9 - Obesity, unspecified, E78.5 - Hyperlipidemia, unspecified, R80.9 - Proteinuria, unspecified Lipid Panel 03/21/23 - Type 2 diabetes mellitus with other diabetic kidney complication, E66.9 - Obesity, unspecified, E78.5 - Hyperlipidemia, unspecified, R80.9 - Proteinuria, unspecified Coding Level of Care Code Est Pt Level 4 (59995) Diagnoses Type 2 diabetes mellitus with microalbuminuria, without long-term current use of insulin ; R80.9 Diabetes mellitus type: type 2 Dyslipidemia E78.5
== END 2023-01-10 15:21 | disposition home or self-care (01) ==
PROVIDERS: PCP Internal Medicine; Visit Provider Internal Medicine
DX: E11.29 Type 2 diabetes mellitus with other diabetic kidney complication (principal); R80.9 Proteinuria, unspecified; E78.5 Hyperlipidemia, unspecified
CPT/HCPCS: 99499

== ENCOUNTER 2023-05-28 11:50 | Outpatient (AMB) | payer OTHER, SELFPAY ==
--- NOTE | 2023-05-28 12:25 | A.OFFPC_ITS ---
Vital Signs 05/28/23 12:38 Height 5 ft 2 in Weight 211 lb BMI 38.6 BP 112/80 Blood Pressure Location Lt brachial Position Sitting Pulse 86 Pulse Source Pulse Oximeter Pulse Oximetry (%) 98 Oxygen Delivery Method Room Air Intake Visit Reasons: Annual PE/DM f/u appt in Mar cx Need A1C Intake Note: Pt is here today for PE. 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 Pt states that she thinks her last pap was last year at [facility]. Allergies lisinopril Adverse Reaction (Verified 12/24/23 15:30) Cough Medication List - Last Reconciled 05/28/23 by Alberta Rosales MD atorvastatin 10 mg PO 2XW metformin 500 mg PO DAILY Tobacco use date assessed: 05/28/23 Dental Screening Dental Screen Date: 05/28/23 Did you have a dental visit in the last 12 months?: Yes Did you have a dental problem in the last 6 months where you did not have access to dental care?: No Was dental information given to patient?: Patient has dentist HPI Annual PE/DM f/u appt in Mar cx Need A1C HPI Details 33-year-old lady with diabetes mellitus, hyperlipidemia, hypertension, here today for her physical exam. She has been compliant with taking her medications,, but admits to not strictly following her diet, and has not been getting much exercise lately. States that she is up-to-date with her cervical cancer screening and pelvic exam, last done at [facility], currently in the process of looking for new OBGYN due to change in insurance.. [facility] Medical History Vitamin D deficiency Cough due to SINDHU inhibitor Right nephrolithiasis Ureterolithiasis Diabetes mellitus with microalbuminuria, without long-term current use of insulin Obesity Dyslipidemia Surgical History History of tubal ligation History of laparoscopic appendectomy Family History Father Unknown family medical history Mother Diabetes mellitus Sister No problems noted. Son No problems noted. Daughter No problems noted. 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 1. Little interest or pleasure in doing things: not at all 2. Feeling down, depressed, or hopeless: not at all 3. Trouble falling or staying asleep, or sleeping too much: not at all 4. Feeling tired or having little energy: not at all 5. Poor appetite or overeating: not at all 6. Feeling bad about yourself - or that you are a failure or have let yourself or your family down: not at all 7. Trouble concentrating on things, such as reading the newspaper or watching television: not at all 8. Moving or speaking so slowly that other people could have noticed. Or the opposite - being so fidgety or restless that you have been moving around a lot more than usual: not at all 9. Thoughts that you would be better off or of hurting yourself in some way: not at all Total score: 0 Depression Screening Interpretation: Negative Depression Screening Done: Yes 69961 - PHQ-9 Billing: Yes Source: Developed by Drs. Juan Baker, Yessica Lam, Lexa Sheriff and colleagues, with an educational agnieszka from [employer]. Thrive Questionnaire Date Thrive assessed: 05/28/23 I am a: Patient What is your living situation today?: I have a steady place to live Within the past 12 months, did the food you bought not last and you didn't have the money to get more?: Never true Within the past 12 months, did you worry whether your food would run out before you got money to buy more?: Never true Do you have trouble paying for medicines?: No Do you have trouble getting transportation to medical appointments?: No Do you have trouble paying your heating and electricity bill?: No Do you have trouble taking care of your child, family member or friend?: No Do you have trouble with day-to-day activities such as bathing, preparing meals, shopping, managing finances, etc.?: No Are you currently unemployed and looking for a job?: No Are you interested in more education?: Yes THRIVE Score: 0 AUDIT C Alcohol Use Questionnaire (AUDIT-C) 1. How often do you have a drink containing alcohol?: Never Total Score: 0 ANDRESSA-7 AMB Questionnaire ANDRESSA-7 Date ANDRESSA - 7 assessed: 05/28/23 Feeling nervous, anxious, or on edge: 0 = Not at all Not being able to stop or control worryin = Not at all Worrying too much about different things: 0 = Not at all Trouble relaxin = Not at all Being so restless that it is hard to sit still: 0 = Not at all Becoming easily annoyed or irritable: 0 = Not at all Feeling afraid as if something awful might happen: 0 = Not at all Total ANDRESSA-7 score (0-4 normal; 5-9 mild; 10-14 moderate; 15-21 severe): 0 Source: Developed by Drs. Juan Baker, Yessica Lam, Lexa Sheriff and colleagues, with an educational agnieszka from [employer]. ANDRESSA-7 Assessment Billing ANDRESSA-7 Assessment Tool: ANDRESSA-7 Assessment 95580 Review of Systems Const Denies headache(s) and Denies weakness Eyes Denies change in vision ENT Denies headache(s), Denies nasal congestion, Denies nasal discharge and Denies sore throat Card Denies chest pain, Denies lightheadedness, Denies palpitations and Denies dyspnea Resp Denies chest congestion, Denies cough, Denies dyspnea and Denies wheezing GI Denies abdominal pain, Denies change in bowel habits and Denies heartburn Denies hematuria, Denies dysuria and Denies urinary urgency Musc Reports no additional complaints Skin/Breast Denies rash Neuro Denies headache(s) and Denies weakness Psych Reports no additional complaints Endo Denies polydipsia, Denies polyuria and Denies palpitations Walter/Lymph Denies easy bruising Aller/Immun Denies seasonal rhinorrhea and Denies wheezing Physical exam (Primary Care) Vital Signs: Last Vital Signs Pulse 86 05/28/23 12:38 BP 112/80 05/28/23 12:38 Pulse Ox 98 05/28/23 12:38 Oxygen Delivery Method Room Air 05/28/23 12:38 BMI result Body Mass Index 38.6 BMI Assessment/Plan discussion: High BMI High, discussed plan: lifestyle, weight reduction, dietary and physical activity Tobacco/Smoking Status: Tobacco use Status Tobacco use date assessed 05/28/23 05/28/23 12:43 Patient Tobacco Use Status Never used Tobacco 05/28/23 12:43 e-Cigarette/Vaping Use Never Used 05/28/23 12:25 PHQ-9: PHQ-9 Score PHQ-9: Total score 0 05/28/23 13:27 Depression Screening Interpretation: Negative Thrive Assessment: Date of Thrive Assessment Date Thrive assessed 05/28/23 05/28/23 13:11 Const General: comfortable, no acute distress and alert Orientation/consciousness: patient oriented x3 HENMT Ears: external ears normal, TM's normal bilaterally and EAC's normal General nose exam: Normal external nose present and No nasal discharge present Mouth: Normal oral and palatal mucosa present, oropharynx normal and moist mucous membranes Eyes General: appearance normal, both eyes and all related structures Conjunctivae: conjunctivae normal Sclerae: sclerae normal Pupils: Equal, round and reactive pupils present EOM: EOMs intact bilaterally Neck Neck: Yes full ROM, Yes no lymphadenopathy and Yes supple Chest Chest palpation & inspection: normal inspection of the chest Breast/axilla palpation: normal palpation of the breasts Resp Effort & Inspection: normal respiratory effort and able to speak in complete sentences Auscultation: clear to auscultation bilaterally Cardio Rate: regular rate Rhythm: regular rhythm Heart sounds: S1 normal heart sound present and S2 normal heart sound present GI Palpation (GI): Soft to palpation, nontender and no masses Auscultation: normal bowel sounds General: Yes no CVA tenderness Back/Spine/Pelvis Back: no CVA tenderness Skin General skin exam: no rashes or lesions noted Neuro General: patient oriented x3, gait normal, tone normal, moves all extremities, Normal light touch and pain sensation and no focal motor deficits Cranial nerves: Yes CN's II-XII intact bilaterally and Yes Equal, round and reactive pupils present Cognition (Neuro): normal cognition Extrem General: Yes full ROM, Yes no joint enlargement, Yes no clubbing, cyanosis or edema and Yes no calf tenderness Psych Appearance: grossly normal and well kempt Mental Status: mental status grossly normal Speech and movement: Normal speech and movement present Affect: normal affect Attitude: cooperative Thought process: Normal thought process present Thought content: Normal thought content present Results AMB Hemoglobin A1c AMB Hemoglobin A1c 8.8 % Last Edit by Amy Taylor CMA on 05/28/23 13:15 Results Reviewed Results Reviewed: Laboratory Last Values Hgb A1c (Clinic) 8.8 % (4.0-6.0) H 05/28/23 13:11 Assessment and Plan Assessment & Plan (1) Annual visit for general adult medical examination with abnormal findings: Code(s): Z00.01 - Encounter for general adult medical examination with abnormal findings Plan: Will check appropriate labs. Recommended dental visit every 6 months and regular eye exams, once a year. Take adequate calcium in diet and vitamin-D 3 at 2000 IU per cap once a day, in addition to weight-bearing exercises to help maintain good muscle tone and weight control. Instructed to do self-breast exam, and recommended to get yearly mammogram, starting at age 40. Currently in the process of looking for new OBGYN for her routine Pap and pelvic exam. Last seen at [facility]. Reminded to get her yearly flu shot and COVID booster, up-to-date with her Tdap and pneumococcal vaccination (2) Diabetes mellitus with microalbuminuria, without long-term current use of insulin: Code(s): E11.29 - Type 2 diabetes mellitus with other diabetic kidney complication; R80.9 - Proteinuria, unspecified Qualifiers: Diabetes mellitus type: type 2 Qualified Code(s): E11.29 - Type 2 diabetes mellitus with other diabetic kidney complication; R80.9 - Proteinuria, unspecified Plan: Diabetes mellitus not well controlled with hemoglobin A1c today at 8.8%. Prescription sent for metformin 500 mg per tablet to take 1 tablet twice a day with meals. Reinforced importance of following recommended diet and getting regular exercise. Reminded to get yearly flu shot and pneumonia vaccination. Reminded as well to get her yearly diabetes retinopathy screening (3) Dyslipidemia: Code(s): E78.5 - Hyperlipidemia, unspecified Plan: Latest fasting lipid panel reviewed with patient, will continue on atorvastatin but increase dosing frequency to daily. Continue with low-cholesterol diet and getting regular exercise. (4) Obesity: Code(s): E66.9 - Obesity, unspecified Qualifiers: Obesity type: due to excess calories Obesity classification: adult class 2 (BMI 35 - 39.9) Serious obesity comorbidity presence: with serious comorbidity Body mass index: BMI 39.0-39.9 Qualified Code(s): E66.01 - Morbid (severe) obesity due to excess calories; Z68.39 - Body mass index [BMI] 39.0- 39.9, adult Plan: Discussed need to increase activity and weight reduction. Recommended focusing on improving health instead of dieting. Mediterranean diet is a healthy diet that helps, limit food high in fat, sugar, and calories. Eat slowly, pay attention to portion sizes, plan your meals ahead of time, start regular physical activity, at least 150 minutes of moderate intensity exercise, or 90 minutes per week of vigorous exercise. Keeping a food diary, tracking what you eat and your physical activity can help assess what improvements you can make. There are many health problems associated with being overweight/obese, so it is important to improve your diet and exercise. There are medications and surgical options available, but Lifestyle changes are the 1st step. Orders: Orders AMB Hemoglobin A1c 05/28/23 E11.29 - Type 2 diabetes mellitus with other diabetic kidney complication, R80.9 - Proteinuria, unspecified Microalbumin, Random (w Creat) 07/21/23 E11.29 - Type 2 diabetes mellitus with other diabetic kidney complication, R80.9 - Proteinuria, unspecified Medications: New metformin 500 mg PO BIDWMEAL 180 tabs 4RF 3 months Changed From atorvastatin 10 mg PO 2XW 26 tabs 1RF To atorvastatin 10 mg PO DAILY 90 tabs 3RF Refilled losartan 25 mg PO DAILY 90 tabs 3RF Coding Level of Care Code Est Pt Level 4 (84780) Complex EM visit Add On G2211 Diagnoses Annual visit for general adult medical examination with abnormal findings Z00.01 Type 2 diabetes mellitus with microalbuminuria, without long-term current use of insulin E11.29; R80.9 Diabetes mellitus type: type 2 Dyslipidemia E78.5 Class 2 severe obesity due to excess calories with serious comorbidity and body mass index (BMI) of 39.0 to 39.9 in adult E66.01; Z68.39 Obesity type: due to excess calories Obesity classification: adult class 2 (BMI 35 - 39.9) Serious obesity comorbidity presence: with serious comorbidity Body mass index: BMI 39.0-39.9 Additional Codes ANDRESSA-7 Assessment Billing - ANDRESSA-7 Assessment Tool: ANDRESSA-7 Assessment 60056 ([id number])
[2023-05-28 12:38] VITALS: BP 112/80; PULSE 86; O2SAT 98; BMI 38.6
== END 2023-05-28 13:33 | disposition home or self-care (01) ==
PROVIDERS: PCP Internal Medicine; Visit Provider Internal Medicine
DX: E11.29 Type 2 diabetes mellitus with other diabetic kidney complication (principal); R80.9 Proteinuria, unspecified; E78.5 Hyperlipidemia, unspecified; E66.01 Morbid (severe) obesity due to excess calories; Z68.39 Body mass index [BMI] 39.0-39.9, adult
CPT/HCPCS: 83036; 99499

== ENCOUNTER 2023-06-03 08:20 | Outpatient (REF) | payer OTHER, SELFPAY ==
--- NOTE | ~2023-06-03 | US_ITS ---
EXAMINATION: US RETROPERITONEAL LIMITED (RENAL ONLY) CLINICAL INFORMATION: Calculus of kidney. COMPARISON: Renal ultrasound 11/28/2022 and 04/23/2022. TECHNIQUE: Real-time imaging of the kidneys. FINDINGS: RIGHT KIDNEY: 10.7 x 4.2 x 6.7 cm (SAG x AP x TRV). The kidney is normal in size, contour, and echogenicity. Renal cortical thickness is normal. No calculi or focal parenchymal lesions. No hydronephrosis. LEFT KIDNEY: 12.5 x 5.0 x 6.9 cm (SAG x AP x TRV). The kidney is normal in size, contour, and echogenicity. Renal cortical thickness is normal. No focal parenchymal lesions or hydronephrosis. 0.7 cm nonobstructing calculus in the mid kidney. US/US renal BI IMPRESSION: 0.7 cm nonobstructing calculus in the mid left kidney without significant change from prior ultrasound 11/28/2022.
== END 2023-06-03 08:21 | disposition home or self-care (01) ==
LOC: HO.HMGCX 08:20
PROVIDERS: PCP Internal Medicine; Visit Provider Nurse Practitioner Family
DX: N20.0 Calculus of kidney (principal)
CPT/HCPCS: 76775

== ENCOUNTER 2023-06-11 08:44 | Outpatient (AMB) | payer OTHER, SELFPAY ==
--- NOTE | 2023-06-11 08:43 | A.OFFVIS_ITS ---
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 Rosales. She has a past medical history of diabetes mellitus, dyslipidemia, nephrolithiasis, and obesity. She is being follow-up on today via video telehealth for her history of nephrolithiasis. In discussion with the patient today she reports to be doing and feeling well. Recent renal ultrasound results reviewed with the patient today. Right kidney with no calculi, lesions, and or hydronephrosis. Left kidney with no lesions or hydronephrosis. 0.7 mm nonobstructing calculus in the mid kidney. No significant change from prior ultrasound 6 months ago. She denies any bothersome urinary issues or concerns. She reports continuing to drink plenty of water daily and adding 1 oz of lemon juice to water daily. She discusses having stopped her vitamin B6 as she had been however will resume at this time. She currently denies urinary urgency, urinary frequency, incontinence, nocturia, hematuria, dysuria, foul smelling urine, changes to urinary stream, flank pain, fever, and or chills. She is happy with her current voiding parameters. Discussed at length nephrolithiasis interventions with surveillance monitoring versus surgical intervention. Discussed risks and benefits of these options. She otherwise offers no other issues or concerns at this time. [facility] Medical History Cough due to SINDHU inhibitor Right nephrolithiasis Ureterolithiasis Diabetes mellitus with microalbuminuria, without long-term current use of insulin Obesity Dyslipidemia Surgical History History of tubal ligation History of laparoscopic appendectomy Family History Father Unknown family medical history Mother Diabetes mellitus Sister No problems noted. Son No problems noted. Daughter No problems noted. 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 needs: No Hearing needs: No Vision needs: Yes Review of Systems Const Reports as per HPI Eyes Reports no additional complaints ENT Reports no additional complaints Card Reports no additional complaints Resp Reports no additional complaints GI Reports as per HPI Reports as per HPI Musc Reports no additional complaints Neuro Reports no additional complaints Psych Reports no additional complaints Endo Details: Patient reports she is diabetic Reports as per HPI Walter/Lymph Reports no additional complaints Aller/Immun Reports no additional complaints Physical Exam Const General: cooperative, healthy appearing, comfortable, no acute distress, well developed, alert and awake Orientation/consciousness: patient oriented x3 HEENT Ears: hearing grossly normal bilaterally Resp Effort & Inspection: normal respiratory effort and able to speak in complete sentences Neuro General: patient oriented x3 Psych Appearance: grossly normal and well kempt Mental Status: mental status grossly normal Speech and movement: Clear speech present Affect: normal affect Attitude: cooperative Thought process: Normal thought process present Thought content: Normal thought content present Insight: Fair insight present (Psych) Judgement: Fair judgement present (Psych) Results Reviewed Results Reviewed: Date of Service: 06/03/23 EXAMINATION: US RETROPERITONEAL LIMITED (RENAL ONLY) FINDINGS: RIGHT KIDNEY: 10.7 x 4.2 x 6.7 cm (SAG x AP x TRV). The kidney is normal in size, contour, and echogenicity. Renal cortical thickness is normal. No calculi or focal parenchymal lesions. No hydronephrosis. LEFT KIDNEY: 12.5 x 5.0 x 6.9 cm (SAG x AP x TRV). The kidney is normal in size, contour, and echogenicity. Renal cortical thickness is normal. No focal parenchymal lesions or hydronephrosis. 0.7 cm nonobstructing calculus in the mid kidney. IMPRESSION: 0.7 cm nonobstructing calculus in the mid left kidney without significant change from prior ultrasound 11/28/2022. Assessment & Plan Assessment & Plan (1) Calculus of kidney: Code(s): N20.0 - Calculus of kidney Plan Recent renal imaging results reviewed with the patient today; as noted above. Continue drinking plenty of water daily. Continue adding 1 oz of lemon juice to water daily. Start vitamin B6 as discussed and prescribed. Will continue with surveillance monitoring at this time. She denies any bothersome urinary issues or concerns. She is happy with current voiding parameters. Will obtain KUB in 6 months Follow-up in 6 months with imaging to be completed prior; or sooner with any issues, concerns, and or questions. Orders: Orders XR KUB 6 Months N20.0 - Calculus of kidney Medications: New pyridoxine (vitamin B6) 100 mg PO DAILY 90 days 90 tabs 1RF Patient Instructions: The patient had an opportunity to ask questions regarding the treatment plan. All questions were answered. Physical exam, labs, and imaging were discussed and reviewed in detail. As well as risks, benefits, and discussion of treatment choices. No major barriers to understanding were identified. The patient expressed understanding and agreement with the above treatment plan. The patient was made aware they should contact our office by phone for worsening of their current condition, the appearance of new symptoms, or with any questions or concerns. Compliance is encouraged with any medications and follow up testing that is ordered. It is a privilege to be allowed the opportunity to participate in? your urological care.? Again, if you have any questions or concerns If you have any questions or concerns please do not hesitate to contact me. The office is [phone]. This note is constructed using voice recognition software. While every effort has been made to ensure accuracy equal opportunity director errors may have been included. Yours sincerely, Bette Chin [facility] Telehealth Telehealth Location of provider rendering services: practice address Location of patient: address on file Patient Identification confirmed using: Name, : Yes Telehealth method: video Patient verbally consented to treatment: Yes Patient verbally consented to billing insurance company: Yes Patient informed of any privacy concerns related to visit: Yes Minutes spent on Phone/Video with Pt.: 15 Coding Level of Care Code Tele Est Pt Level 3 (53044) Diagnoses Calculus of kidney N20.0
== END 2023-06-11 09:35 | disposition home or self-care (01) ==
LOC: HO.HUSH 08:44
PROVIDERS: PCP Internal Medicine; Visit Provider Nurse Practitioner Family
DX: N20.0 Calculus of kidney (principal)
CPT/HCPCS: 99213

== ENCOUNTER → 2023-06-11 08:44 | Outpatient (BNVA) | payer OTHER, SELFPAY | PROVIDERS: PCP Internal Medicine; Visit Provider Nurse Practitioner Family ==

== ENCOUNTER 2023-06-20 08:22 | Outpatient (AMB) | payer OTHER, SELFPAY ==
[2023-06-20 08:27] VITALS: BP 112/70; PULSE 73; TEMP 36.6; O2SAT 98; BMI 38.6
--- NOTE | 2023-06-20 08:27 | AM.OFFWIN_ITS ---
Intake Vital Signs 06/20/23 08:27 Height 5 ft 2 in Weight 211 lb BMI 38.6 BP 112/70 Blood Pressure Location Lt brachial Position Sitting Pulse 73 Pulse Source Pulse Oximeter Temp 97.9 F Temp Source Temporal Artery Scan Pulse Oximetry (%) 98 Oxygen Delivery Method Room Air Intake Visit Reasons: EST/pain left upper thigh (lobby) Intake Note: pt is here today for pain in rt thigh started 5 days ago Patient Tobacco Use Status: Never used Tobacco Allergies lisinopril Adverse Reaction (Verified 06/20/23 08:27) Cough Do you need a note to return to daycare/school/sports/work: Yes HPI HPI Comments History of Present Illness Details 32 y/o female patient who [facility] with c/o Right thigh pain x 5 days. Reports Pain starts at night time, after 9 pm and continues through the night. Reports pain going away in the morning when she is awake. She has been taking Acetaminophen with some relief. Describes the pain as pressure like and rates it at 9/10. Denies injury or trauma to the joint. She has poor control on T2DM, last A1C 8%. [facility] Medical History Cough due to SINDHU inhibitor Right nephrolithiasis Ureterolithiasis Diabetes mellitus with microalbuminuria, without long-term current use of insulin Obesity Dyslipidemia Surgical History History of tubal ligation History of laparoscopic appendectomy Family History Father Unknown family medical history Mother Diabetes mellitus Sister No problems noted. Son No problems noted. Daughter No problems noted. 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 needs: No Hearing needs: No Vision needs: Yes Review of Systems Const All systems reviewed & are unremarkable except as noted in HPI and below Physical Exam Vital Signs: Last Vital Signs Temp 97.9 F 06/20/23 08:27 Pulse 73 06/20/23 08:27 BP 112/70 06/20/23 08:27 Pulse Ox 98 06/20/23 08:27 Oxygen Delivery Method Room Air 06/20/23 08:27 BMI result Body Mass Index 38.6 Const General: no acute distress Nutritional Appearance: obese Orientation/consciousness: patient oriented x3 Neuro General: patient oriented x3, gait normal and no focal motor deficits Extrem Right lower extremity: normal to inspection, full ROM, no joint enlargement, hip/thigh Details: normal to inspection and normal ROM; no tenderness, no swelling, no abrasions, no lacerations, no ecchymosis and no crepitus and foot Details: normal capillary refill, normal to inspection, toes with normal ROM and no edema; no tenderness Left lower extremity: normal to inspection, full ROM and hip/thigh Details: normal to inspection and normal ROM; no tenderness and no swelling Psych Speech and movement: Clear speech present Assessment & Plan Assessment & Plan (1) Right thigh pain: Code(s): M79.651 - Pain in right thigh Plan: - Vitamin Deficiencies vs Neuropathy vs Sciatica - Flexeril and Ibupro - If no improvement F/U with PCP for necessary imaging Medications: New ibuprofen 600 mg PO Q6H 3 days PRN 20 tabs 0RF pain M79.651 - Pain in right thigh cyclobenzaprine 5 mg PO BEDTIME 10 tabs 0RF M79.651 - Pain in right thigh Coding Level of Care Code Est Pt Level 3 (40585) Diagnoses Right thigh pain M79.651 Time Spent (min) 15
== END 2023-06-20 09:35 | disposition home or self-care (01) ==
PROVIDERS: PCP Internal Medicine; Visit Provider Nurse Practitioner Family
DX: M79.651 Pain in right thigh (principal)
CPT/HCPCS: 99213

== ENCOUNTER 2023-07-22 10:49 | Outpatient (AMB) | payer OTHER, SELFPAY ==
--- NOTE | 2023-07-22 10:55 | MHC.OFFWIV ---
Intake Vital Signs 07/22/23 10:56 Height 5 ft 2 in Weight 212 lb BMI 38.8 BP 118/76 Blood Pressure Location Lt brachial Position Sitting Pulse 74 Pulse Source Pulse Oximeter Temp 97.9 F Temp Source Oral Pulse Oximetry (%) 98 Intake Visit Reasons: EP Headache back of head Intake Note: pt is here for headache on back of head Patient Tobacco Use Status: Never used Tobacco Allergies lisinopril Adverse Reaction (Verified 07/22/23 11:00) Cough Do you need a note to return to daycare/school/sports/work: No HPI HPI Comments History of Present Illness Details 32-year-old female presents today complaining of left-sided occipital pain. 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 She denies any radiating pain in her upper extremities paresthesias or weakness. [facility] Medical History Cough due to SINDHU inhibitor Right nephrolithiasis Ureterolithiasis Diabetes mellitus with microalbuminuria, without long-term current use of insulin Obesity Dyslipidemia Surgical History History of tubal ligation History of laparoscopic appendectomy Family History Father Unknown family medical history Mother Diabetes mellitus Sister No problems noted. Son No problems noted. Daughter No problems noted. 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 needs: No Hearing needs: No Vision needs: Yes Review of Systems Const All systems reviewed & are unremarkable except as noted in HPI and below Reports headache(s) Eyes Reports no additional complaints ENT Reports no additional complaints and Reports headache(s) Card Reports no additional complaints Resp Reports no additional complaints GI Reports no additional complaints Neuro Reports no additional complaints and Reports headache(s) Physical Exam Vital Signs: Last Vital Signs Temp 97.9 F 07/22/23 10:56 Pulse 74 07/22/23 10:56 BP 118/76 07/22/23 10:56 Pulse Ox 98 07/22/23 10:56 BMI result Body Mass Index 38.8 Const General: comfortable and no acute distress HEENT Head: Yes normal to inspection, Yes normocephalic and Yes atraumatic Ears: hearing grossly normal bilaterally, TM's normal bilaterally and EAC's normal General nose exam: Normal external nose present Face and sinus: Yes normal facial exam Resp Effort & Inspection: normal respiratory effort Auscultation: clear to auscultation bilaterally Cardio Palpation: normal PMI Rate: regular rate Back/Spine/Pelvis Cervical Spine: normal cervical lordosis, cervical ROM normal, cervical muscular tenderness (left erector spinae) and pain with cervical ROM Neuro General: moves all extremities, Normal light touch and pain sensation and CN's II-XI intact bilaterally Motor exam (neuro): 5/5 motor strength present throughout Assessment & Plan Assessment & Plan (1) Neck pain: Code(s): M54.2 - Cervicalgia Plan: Try the muscle relaxers and gentle [id number] exercises. Avoid lifting over 10 lb at work for the next few days Plan See plan Medications: Refilled cyclobenzaprine 5 mg PO BEDTIME 10 tabs 0RF M79.651 - Pain in right thigh Coding Level of Care Code Est Pt Level 3 (29714) Diagnoses Neck pain M54.2
[2023-07-22 10:56] VITALS: BP 118/76; PULSE 74; TEMP 36.6; O2SAT 98; BMI 38.8
== END 2023-07-22 11:40 | disposition home or self-care (01) ==
PROVIDERS: PCP Internal Medicine; Visit Provider Physician Assistant Medical
DX: M54.2 Cervicalgia (principal)
CPT/HCPCS: 99213

== ENCOUNTER 2023-09-01 07:44 | Outpatient (REF) | payer OTHER, SELFPAY ==
[2023-09-01 10:37] LABS: Estimated Average Glucose 197 mg/dL; Hemoglobin A1c % 8.5 % (<6.0)
[2023-09-01 11:04] LABS: Creatinine Urine 30.07 mg/dL; Microalbum/Creatinine Ratio Ur 19.9 ug/mg cr (<30)
[2023-09-01 11:14] LABS: Alanine Aminotransferase 75 U/L (0-31); Anion Gap 14 (12-20); Aspartate Amino Transferase 51 U/L (5-31); Blood Urea Nitrogen 6 mg/dL (9-16); Calcium 9.2 mg/dL (8.4-10.2); Carbon Dioxide 21 mmol/L (22-29); Chloride 108 mmol/L (96-108); Cholesterol 117 mg/dL (<200); Estimated Glomerular Filt Rate > 60; Glucose Fasting 192 mg/dL (60-99); HDL Cholesterol 34 mg/dL (>40); LDL Cholesterol Calculated 58 mg/dL (<100); Potassium 3.9 mmol/L (3.3-5.1); Sodium 139 mmol/L (135-145); Triglycerides 127 mg/dL (<150)
[2023-09-01 11:25] LABS: Vitamin D 25-OH Total 16.7 ng/mL (>30)
== END 2023-09-01 07:45 | disposition home or self-care (01) ==
LOC: HO.HMGCLDS 07:44
PROVIDERS: PCP Internal Medicine; Visit Provider Internal Medicine
DX: E11.29 Type 2 diabetes mellitus with other diabetic kidney complication (principal); R80.9 Proteinuria, unspecified; E66.9 Obesity, unspecified; E78.5 Hyperlipidemia, unspecified
CPT/HCPCS: 36415; 80048; 80061; 82043; 82306; 82570; 83036; 84450; 84460

== ENCOUNTER 2023-09-02 14:01 | Outpatient (AMB) | payer OTHER, SELFPAY ==
--- NOTE | 2023-09-02 11:41 | A.OFFPC_ITS ---
Intake Visit Reasons: 3mpo. f/u labs I phone [phone] Allergies lisinopril Adverse Reaction (Verified 09/02/23 14:24) Cough Medication List - Last Reconciled 09/02/23 by Alberta Rosales MD atorvastatin 10 mg PO DAILY losartan 25 mg PO DAILY metformin 500 mg PO BIDWMEAL 3 months pyridoxine (vitamin B6) 100 mg PO DAILY 90 days Tobacco use date assessed: 09/02/23 Dental Screening Dental Screen Date: 09/02/23 Did you have a dental visit in the last 12 months?: Yes Did you have a dental problem in the last 6 months where you did not have access to dental care?: No Was dental information given to patient?: Patient has dentist HPI 3mpo. f/u labs I phone [phone] HPI Details Tele health visit made with 33-year-old lady, with diabetes mellitus, hyperlipidemia, hypertension and history of vitamin-D deficiency, here today for her follow-up. She has been cutting back on her carb intake, has given up eating white rice, has switched to just brown rice once a week and has started exercising for 30 minutes for the last 4 weeks trying to lose weight. Patient states that she has lost approximately 3 lb and blood pressure she checks it at home has been better at 110/70. Recent fasting labs however showed hemoglobin A1c higher at 8.5%, reviewed fasting lipids within normal limits, but vitamin-D level low at 16 and mildly elevated liver transaminase. She however states that she has been feeling well, with no complaints at present time. Requesting referral to a different OBGYN, as she recently just changed her insurance and her old Ob in [facility] is not taking her new insurance [facility] Medical History Vitamin D deficiency Cough due to SINDHU inhibitor Right nephrolithiasis Ureterolithiasis Diabetes mellitus with microalbuminuria, without long-term current use of insulin Obesity Dyslipidemia Surgical History History of tubal ligation History of laparoscopic appendectomy Family History Father Unknown family medical history Mother Diabetes mellitus Sister No problems noted. Son No problems noted. Daughter No problems noted. 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 Juan Baker, Yessica Lam, Lexa Sheriff and colleagues, with an educational agnieszka from [employer]. Review of Systems Const Denies headache(s) and Denies weakness Eyes Denies change in vision ENT Denies headache(s), Denies nasal congestion, Denies nasal discharge and Denies sore throat Card Denies chest pain, Denies lightheadedness, Denies palpitations and Denies dyspnea Resp Denies chest congestion, Denies cough, Denies dyspnea and Denies wheezing GI Denies abdominal pain, Denies change in bowel habits and Denies heartburn Denies hematuria, Denies urinary frequency, Denies dysuria and Denies urinary urgency Musc Reports no additional complaints Skin/Breast Denies rash Neuro Denies headache(s) and Denies weakness Psych Reports no additional complaints Endo Denies polydipsia, Denies polyuria and Denies palpitations Walter/Lymph Denies easy bruising Aller/Immun Denies seasonal rhinorrhea and Denies wheezing Physical exam (Primary Care) Tobacco/Smoking Status: Tobacco use Status Tobacco use date assessed 09/02/23 09/02/23 11:43 Patient Tobacco Use Status Never used Tobacco 09/02/23 11:43 e-Cigarette/Vaping Use Never Used 09/02/23 11:43 Thrive Assessment: Date of Thrive Assessment Date Thrive assessed 05/28/23 09/02/23 11:43 Telehealth Telehealth Telehealth Platform: Other (please specify) Location of provider rendering services: practice address Location of patient: address on file Patient Identification confirmed using: Name, : Yes Telehealth method: video Patient verbally consented to treatment: Yes Patient verbally consented to billing insurance company: Yes Patient informed of any privacy concerns related to visit: Yes Minutes spent on Phone/Video with Pt.: 15 Results Reviewed Results Reviewed: Laboratory Tests 09/01/23 07:50 Estimat Average Glucose 197 Hemoglobin A1c % 8.5 H Name: Arnold Mayorga Age/Sex: 33/F : 1990 Unit#: [id number] Attend Dr: Alberta Rosales MD Re09/01/23 Status: DEP REF Location: [facility] Disch: SPEC : [id number] MARY: 09/01/23 STATUS: COMP REQ : [id number] RECD: 09/01/23-[address]: Alberta Rosales MD COMP: 09/01/23 ENTERED: 09/01/23 [facility] DR: ORDERED: Met Prof Fast, AST, ALT, Lipid Panel, Vitamin D 25-OH Test Result Flag Reference Sodium 139 135-145 mmol/L Potassium 3.9 3.3-5.1 mmol/L CL 108 96-108 mmol/L CO2 21 L 22-29 mmol/L Gap 14 12-20 BUN 6 L 9-16 mg/dL Creat 0.62 0.5-1.4 mg/dL EGFR > 60 NOTE: For -Australian individuals, multiply the result by 1.210. Chronic Kidney Disease: Estimated GFR < 60 mL/min/1.73m2 Severe Kidney Disease: Estimated GFR < 15 mL/min/1.73m2 FBS 192 H 60-99 mg/dL A fasting glucose of 126 mg/dl or greater on more than one occasion is considered diagnostic of diabetes. CA 9.2 8.4-10.2 mg/dL AST (GOT) 51 H 5-31 U/L ALT (GPT) 75 H 0-31 U/L Triglyceride 127 <150 mg/dL Desirable Triglyceride: less than 150 mg/dL Borderline High Triglyceride 150-199 mg/dL High Triglyceride: 200-499 mg/dL Very High Triglyceride: greater than or equal to 5OO mg/dL Cholesterol 117 <200 mg/dL Desirable Cholesterol: less than 200 mg/dL Borderline High Cholesterol: 200-239 mg/dL High Cholesterol: greater than 239 mg/dL LDL Calculated 58 <100 mg/dL Desirable LDL: less than 100 mg/dL Near Optimal/Above Optimal LDL: 110-129 mg/dL Borderline High LDL: 130-159 mg/dL High LDL: 160-189 mg/dL Very High LDL: greater than or equal to 190 mg/dL HDL 34 L >40 mg/dL Desirable HDL: greater than 40 mg/dL Note: This HDL assay may give artificially low results in patients with liver disease. Vit D 25-OH Tot 16.7 L >30 ng/mL Health Based Reference Values* < 20 ng/mL Deficient 20-30 ng/mL Insufficient > 30 ng/mL Sufficient Assessment and Plan Assessment & Plan (1) Screening for malignant neoplasm of cervix: Code(s): Z12.4 - Encounter for screening for malignant neoplasm of cervix Plan: Referred to [facility] for her routine cervical cancer screening and pelvic exam (2) Dyslipidemia: Code(s): E78.5 - Hyperlipidemia, unspecified Plan: Reviewed recent fasting lipid profile with patient with levels within normal limits . Continue atorvastatin 10 mg daily , in addition to adherence to low-cholesterol diet and regular exercise, at least 30 minutes 3 to 4 times a week. Advised patient to make healthy food choices, eat more fruits, vegetables, whole grains, wild caught fish and low-fat dairy. Limit amount of meat and fried or fatty food products, as well as processed foods and fast foods. Follow-up scheduled with repeat fasting lipid panel in 3 months. (3) Diabetes mellitus with microalbuminuria, without long-term current use of insulin: Code(s): E11.29 - Type 2 diabetes mellitus with other diabetic kidney complication; R80.9 - Proteinuria, unspecified Plan: Continue with metformin 500 mg 1 tablet twice a day and added Jardiance 10 mg per tablet taken 1 tablet in a.m. an hour before breakfast with glass of water. Continue with regular exercise at least 4-5 days a week, continue adherence to healthy eating habits and will see her back for follow-up in 3 months after fasting labs done (4) Vitamin D deficiency: Code(s): E55.9 - Vitamin D deficiency, unspecified Plan: Prescription sent for [place] [address] units per capsule to take once a week for the next 3 months. Once finished taking the prescription, to continue taking [id number] vitamin-D 3 at 2000 units daily Orders: Orders Hemoglobin A1c 12/21/23 E11.29 - Type 2 diabetes mellitus with other diabetic kidney complication, E55.9 - Vitamin D deficiency, unspecified, E66.01 - Morbid (severe) obesity due to excess calories, E78.5 - Hyperlipidemia, unspecified, R80.9 - Proteinuria, unspecified, Z68.39 - Body mass index [BMI] 39.0-39.9, adult Alanine Aminotransferase 12/21/23 E11.29 - Type 2 diabetes mellitus with other diabetic kidney complication, E55.9 - Vitamin D deficiency, unspecified, E66.01 - Morbid (severe) obesity due to excess calories, E78.5 - Hyperlipidemia, unspecified, R80.9 - Proteinuria, unspecified, Z68.39 - Body mass index [BMI] 39.0-39.9, adult Aspartate Amino Transferase 12/21/23 E11.29 - Type 2 diabetes mellitus with other diabetic kidney complication, E55.9 - Vitamin D deficiency, unspecified, E66.01 - Morbid (severe) obesity due to excess calories, E78.5 - Hyperlipidemia, unspecified, R80.9 - Proteinuria, unspecified, Z68.39 - Body mass index [BMI] 39.0-39.9, adult Microalbumin, Random (w Creat) 12/21/23 E11.29 - Type 2 diabetes mellitus with other diabetic kidney complication, E55.9 - Vitamin D deficiency, unspecified, E66.01 - Morbid (severe) obesity due to excess calories, E78.5 - Hyperlipidemia, unspecified, R80.9 - Proteinuria, unspecified, Z68.39 - Body mass index [BMI] 39.0-39.9, adult Basic Metabolic Panel Fasting 12/21/23 E11.29 - Type 2 diabetes mellitus with other diabetic kidney complication, E55.9 - Vitamin D deficiency, unspecified, E66.01 - Morbid (severe) obesity due to excess calories, E78.5 - Hyperlipidemia, unspecified, R80.9 - Proteinuria, unspecified, Z68.39 - Body mass index [BMI] 39.0-39.9, adult Lipid Panel 12/21/23 E11.29 - Type 2 diabetes mellitus with other diabetic kidney complication, E55.9 - Vitamin D deficiency, unspecified, E66.01 - Morbid (severe) obesity due to excess calories, E78.5 - Hyperlipidemia, unspecified, R80.9 - Proteinuria, unspecified, Z68.39 - Body mass index [BMI] 39.0-39.9, adult Vitamin D 25-OH Total 12/21/23 E11.29 - Type 2 diabetes mellitus with other diabetic kidney complication, E55.9 - Vitamin D deficiency, unspecified, E66.01 - Morbid (severe) obesity due to excess calories, E78.5 - Hyperlipidemia, unspecified, R80.9 - Proteinuria, unspecified, Z68.39 - Body mass index [BMI] 39.0-39.9, adult Referrals 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
== END 2023-09-02 15:44 | disposition home or self-care (01) ==
LOC: HO.HMGC 14:01
PROVIDERS: PCP Internal Medicine; Visit Provider Internal Medicine
DX: E78.5 Hyperlipidemia, unspecified (principal); E11.29 Type 2 diabetes mellitus with other diabetic kidney complication; R80.9 Proteinuria, unspecified; E55.9 Vitamin D deficiency, unspecified
CPT/HCPCS: 99214

== ENCOUNTER 2023-09-11 08:11 | Outpatient (AMB) | payer OTHER, SELFPAY ==
[2023-09-11 08:20] VITALS: BP 122/72; PULSE 90; TEMP 37; O2SAT 97; BMI 38.8
--- NOTE | 2023-09-11 08:20 | AM.OFFWIN_ITS ---
Intake Vital Signs 09/11/23 08:20 Height 5 ft 2 in Weight 212 lb BMI 38.8 BP 122/72 Blood Pressure Location Rt brachial Position Sitting Pulse 90 Pulse Source Pulse Oximeter Temp 98.6 F Temp Source Oral Pulse Oximetry (%) 97 Oxygen Delivery Method Room Air Intake Visit Reasons: EP Fever, cough, burning feeling in chest Intake Note: pt is here for fever, cough and burning in chest Patient Tobacco Use Status: Never used Tobacco Allergies lisinopril Adverse Reaction (Verified 09/11/23 08:21) Cough Do you need a note to return to daycare/school/sports/work: Yes HPI HPI Comments History of Present Illness Details 33 y/o female patient who presents to [facility] in clinic wi c/o cough, sore throat and fever since Friday. [facility] Medical History Vitamin D deficiency Cough due to SINDHU inhibitor Right nephrolithiasis Ureterolithiasis Diabetes mellitus with microalbuminuria, without long-term current use of insulin Obesity Dyslipidemia Surgical History History of tubal ligation History of laparoscopic appendectomy Family History Father Unknown family medical history Mother Diabetes mellitus Sister No problems noted. Son No problems noted. Daughter No problems noted. 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 needs: No Hearing needs: No Vision needs: Yes Review of Systems Const All systems reviewed & are unremarkable except as noted in HPI and below Physical Exam Vital Signs: Last Vital Signs Temp 98.6 F 09/11/23 08:20 Pulse 90 09/11/23 08:20 BP 122/72 09/11/23 08:20 Pulse Ox 97 09/11/23 08:20 Oxygen Delivery Method Room Air 09/11/23 08:20 BMI result Body Mass Index 38.8 Const General: comfortable and no acute distress Nutritional Appearance: overweight Orientation/consciousness: patient oriented x3 HEENT Head: Yes normocephalic Ears: external ears normal and TM abnormal bulging and with fluid behind the TM bilateral; not bullous, not dull, not with effusion and not erythematous General nose exam: Abnormal mucous membranes and turbinates present boggy and erythematous Face and sinus: Yes sinuses nontender Mouth: moist mucous membranes Throat: Yes posterior oropharynx normal, Yes uvula midline and Yes abnormal tonsil (enlarged tonsils+ 2) Resp Effort & Inspection: normal respiratory effort and able to speak in complete s entences Auscultation: clear to auscultation bilaterally, no rales, no rhonchi and no wheezes Cardio Rate: regular rate Rhythm: regular rhythm Neuro General: patient oriented x3 Assessment & Plan Assessment & Plan (1) Cough in adult: Code(s): R05.9 - Cough, unspecified Plan: - OTC cough remedies - Acetaminophen for pain relief - Rest and hydrate with plenty of warm fluids. (2) Upper respiratory infection: Code(s): J06.9 - Acute upper respiratory infection, unspecified Qualifiers: Pharyngitis/tonsillitis etiology: unspecified etiology URI type: acute pharyngitis Qualified Code(s): J02.9 - Acute pharyngitis, unspecified Plan: - OTC cough remedies - Acetaminophen for pain relief - Rest and hydrate with plenty of warm fluids. Medications: New azithromycin 500 mg PO DAILY 3 tabs 0RF 3 days J02.9 - Acute pharyngitis, unspecified, R05.9 - Cough, unspecified prednisone 50 mg PO DAILY 3 tabs 0RF 3 days J02.9 - Acute pharyngitis, unspecified, R05.9 - Cough, unspecified benzonatate 100 mg PO TID 30 caps 0RF R05.9 - Cough, unspecified Coding Level of Care Code Est Pt Level 3 (95543) Diagnoses Cough in adult R05.9 Acute pharyngitis, unspecified etiology J02.9 Pharyngitis/tonsillitis etiology: unspecified etiology URI type: acute pharyngitis Time Spent (min) 15
== END 2023-09-11 08:41 | disposition home or self-care (01) ==
PROVIDERS: PCP Internal Medicine; Visit Provider Nurse Practitioner Family
DX: R05.9 Cough, unspecified (principal); J02.9 Acute pharyngitis, unspecified
CPT/HCPCS: 99213

== ENCOUNTER 2023-11-13 07:11 | Outpatient (REF) | payer OTHER, SELFPAY ==
--- NOTE | ~2023-11-13 | XR_ITS ---
EXAMINATION: XR ABDOMEN KUB CLINICAL INDICATION: Calculus of the kidney. COMPARISON: Selected images of the abdomen and pelvic CT scan of 01/12/2021. Renal ultrasound of 06/03/2023. TECHNIQUE: AP view of the abdomen. FINDINGS: Evaluation of calculi in the portions of the bilateral kidneys is limited due to overlying bowel containing air and fecal material. A 0.5 cm calculus in the mid left kidney appears slightly more prominent compared to previous CT scan and is stable when compared to previous ultrasound of 06/03/2023. Within the limits of study, no definite right renal calculi are seen. No definite calculi are noted in the course of the ureters or bladder. The bowel gas pattern is normal without evidence of ileus or obstruction. [id number] stool burden is noted in the ascending and transverse colon. Osseous structures are unremarkable. XR/XR KUB IMPRESSION: Evaluation of the renal calculi is somewhat limited due to overlying bowel containing fecal material and gas. A 0.5 cm calculus in the left mid kidney. Within the limits of study, no definite additional radiopaque urinary tract calculi are noted. [id number] stool burden in the ascending and transverse colon.
== END 2023-11-13 07:12 | disposition home or self-care (01) ==
LOC: HO.XRAY 07:11
PROVIDERS: PCP Internal Medicine; Visit Provider Nurse Practitioner Family
DX: N20.0 Calculus of kidney (principal)
CPT/HCPCS: 74018

== ENCOUNTER 2023-12-10 15:09 | Outpatient (AMB) | payer OTHER, SELFPAY ==
--- NOTE | 2023-12-10 15:10 | MHC.OFFVIS ---
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 Rosales. She has a past medical history of diabetes mellitus, dyslipidemia, nephrolithiasis, and obesity. She presents to the office today for follow-up of her nephrolithiasis. In discussion with the patient today she reports to be doing and feeling well. 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 When asked she denies any bothersome urinary issues or concerns. She reports to be drinking plenty of water daily. Recent KUB results reviewed with the patient today. A 0.5 cm calculus in the left mid kidney. Within the limits of the study, no definite additional radiopaque urinary tract calculi are noted. Moderate to large stool burden in the ascending and transverse colon. When asked she denies urinary urgency, urinary frequency, incontinence, nocturia, hematuria, dysuria, foul smelling urine, changes to urinary stream, flank pain, fever, and or chills. She is happy with her current voiding parameters. Discussed at length nephrolithiasis interventions with surveillance monitoring versus surgical intervention. Discussed risks and benefits of these options. She otherwise offers no other issues or concerns at this time. [facility] Medical History Vitamin D deficiency Cough due to SINDHU inhibitor Right nephrolithiasis Ureterolithiasis Diabetes mellitus with microalbuminuria, without long-term current use of insulin Obesity Dyslipidemia Surgical History History of tubal ligation History of laparoscopic appendectomy Family History Father Unknown family medical history Mother Diabetes mellitus Sister No problems noted. Son No problems noted. Daughter No problems noted. 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 needs: No Hearing needs: No Vision needs: Yes Review of Systems Const Reports as per HPI Eyes Reports no additional complaints ENT Reports no additional complaints Card Reports no additional complaints Resp Reports no additional complaints GI Reports as per HPI Reports as per HPI Musc Reports no additional complaints Neuro Reports no additional complaints Psych Reports no additional complaints Endo Details: Patient reports she is diabetic Reports as per HPI Walter/Lymph Reports no additional complaints Aller/Immun Reports no additional complaints Physical Exam Const General: cooperative, healthy appearing, comfortable, no acute distress, well developed, alert and awake Orientation/consciousness: patient oriented x3 Limitations: no limitations HEENT Head: Yes normal to inspection, Yes normocephalic and Yes atraumatic Ears: hearing grossly normal bilaterally Eyes General: appearance normal, both eyes and all related structures Neck Neck: Yes normal visual inspection and Yes trachea midline Chest Chest palpation & inspection: normal inspection of the chest Resp Effort & Inspection: normal respiratory effort and able to speak in complete sentences Cardio Rate: regular rate GI Inspection: Yes normal to inspection General: Yes no CVA tenderness Back/Spine/Pelvis Back: no CVA tenderness Skin General skin exam: no rashes or lesions noted Neuro General: patient oriented x3 Extrem General: Yes normal to inspection Psych Appearance: grossly normal and well kempt Mental Status: mental status grossly normal Speech and movement: Clear speech present Affect: normal affect Attitude: cooperative Thought process: Normal thought process present Thought content: Normal thought content present Insight: Fair insight present (Psych) Judgement: Fair judgement present (Psych) Results AMB Urinalysis, Automated UA Leukoctes 70 Jay/uL Last Edit by Cici Lima on 12/10/23 15:26 UA Nitrite Negative Last Edit by Cici Lima on 12/10/23 15:26 UA Urobilinogen 0.2 mg/dL Last Edit by Cici Lima on 12/10/23 15:26 UA Protein 0 mg/dL Last Edit by Cici Lima on 12/10/23 15:26 UA pH 6.0 Last Edit by Cici Lima on 12/10/23 15:26 UA Blood 0 Griffin/uL Last Edit by Cici Lima on 12/10/23 15:26 UA Specific [place] 1.005 Last Edit by Cici Lima on 12/10/23 15:26 UA Ketone Negative Last Edit by Cici Lima on 12/10/23 15:26 UA Bilirubin 0 mg/dL Last Edit by Cici Lima on 12/10/23 15:26 UA Glucose 0 mg/dL Last Edit by Cici Lima on 12/10/23 15:26 Results Reviewed Results Reviewed: Laboratory Last Values Urine pH (Auto) 6.0 12/10/23 15:18 Specific [place] (Auto) 1.005 12/10/23 15:18 Urine Protein (Auto) 0 mg/dL 12/10/23 15:18 Glucose (UA)(Auto) 0 mg/dL 12/10/23 15:18 Urine Ketones (Auto) Negative 12/10/23 15:18 Urine Blood (Auto) 0 Griffin/uL 12/10/23 15:18 Urine Nitrite (Auto) Negative 12/10/23 15:18 Urine Bilirubin (Auto) 0 mg/dL 12/10/23 15:18 Urine Urobilinogen (Auto) 0.2 mg/dL 12/10/23 15:18 Leukocyte Esterase (Auto) 70 Jay/uL 12/10/23 15:18 Date of Service: 11/13/23 EXAMINATION: XR ABDOMEN KUB FINDINGS: Evaluation of calculi in the portions of the bilateral kidneys is limited due to overlying bowel containing air and fecal material. A 0.5 cm calculus in the mid left kidney appears slightly more prominent compared to previous CT scan and is stable when compared to previous ultrasound of 06/03/2023. Within the limits of study, no definite right renal calculi are seen. No definite calculi are noted in the course of the ureters or bladder. The bowel gas pattern is normal without evidence of ileus or obstruction. [id number]-[id number] stool burden is noted in the ascending and transverse colon. Osseous structures are unremarkable. IMPRESSION: Evaluation of the renal calculi is somewhat limited due to overlying bowel containing fecal material and gas. A 0.5 cm calculus in the left mid kidney. Within the limits of study, no definite additional radiopaque urinary tract calculi are noted. Bqloknsb-rg-[id number] stool burden in the ascending and transverse colon. Assessment & Plan Assessment & Plan (1) Calculus of kidney: Code(s): N20.0 - Calculus of kidney Category: Medical Plan In office urinalysis results reviewed with the patient today; as noted above. Recent KUB results reviewed with the patient today; as noted above. Continue drinking plenty of water daily. Continue adding 1 oz of lemon juice to water daily. Continue vitamin B6 as discussed and prescribed. Will continue with surveillance monitoring at this time. She denies any bothersome urinary issues or concerns. She is happy with current voiding parameters. Will obtain renal ultrasound in 1 year Follow-up in 1 year with imaging to be completed prior; or sooner with any issues, concerns, and or questions. Orders: Orders AMB Urinalysis Automated Today Z13.9 - Encounter for screening, unspecified US retroperitoneal comp 1 Year N20.0 - Calculus of kidney Medications: Refilled pyridoxine (vitamin B6) 100 mg PO DAILY 90 days 90 tabs 4RF Patient Instructions: The patient had an opportunity to ask questions regarding the treatment plan. All questions were answered. Physical exam, labs, and imaging were discussed and reviewed in detail. As well as risks, benefits, and discussion of treatment choices. No major barriers to understanding were identified. The patient expressed understanding and agreement with the above treatment plan. The patient was made aware they should contact our office by phone for worsening of their current condition, the appearance of new symptoms, or with any questions or concerns. Compliance is encouraged with any medications and follow up testing that is ordered. It is a privilege to be allowed the opportunity to participate in? your urological care.? Again, if you have any questions or concerns If you have any questions or concerns please do not hesitate to contact me. The office is [phone]. This note is constructed using voice recognition software. While every effort has been made to ensure accuracy contact lens blocker errors may have been included. Yours sincerely, RAJAN Meza Coding Level of Care Code Est Pt Level 3 (43915) Diagnoses Calculus of kidney N20.0
== END 2023-12-10 15:41 | disposition home or self-care (01) ==
PROVIDERS: PCP Internal Medicine; Visit Provider Nurse Practitioner Family
DX: N20.0 Calculus of kidney (principal); Z13.9 Encounter for screening, unspecified
CPT/HCPCS: 99213

== ENCOUNTER → 2023-12-10 15:09 | Outpatient (BNVA) | payer OTHER, SELFPAY | PROVIDERS: PCP Internal Medicine; Visit Provider Nurse Practitioner Family | DX: N20.0 Calculus of kidney (principal) | CPT/HCPCS: 81003; 99212 ==

== ENCOUNTER 2023-12-23 15:52 | Outpatient (AMB) | payer OTHER, SELFPAY ==
--- NOTE | 2023-12-23 15:56 | AM.OFFWIN_ITS ---
Intake Vital Signs 12/23/23 15:57 Height 5 ft 2 in Weight 205 lb BMI 37.5 BP 116/64 Blood Pressure Location Rt brachial Position Sitting Pulse 81 Pulse Source Pulse Oximeter Temp 98.4 F Temp Source Oral Pulse Oximetry (%) 98 Oxygen Delivery Method Room Air Intake Visit Reasons: EP burning sensation when urinating Intake Note: pt c/o burning and pressure while urinating. Started Friday Patient Tobacco Use Status: Never used Tobacco Allergies lisinopril Adverse Reaction (Verified 12/23/23 15:57) Cough Do you need a note to return to daycare/school/sports/work: No HPI HPI Comments History of Present Illness Details Patient is a 33-year-old female complaining of 4 days of pressure in her bladder, sensitivity and possibly a scratch on her labia, increased frequency of urination and burning with urination. She denies any fevers, blood in her urine or low back pain. She does state she is diabetic and takes Jardiance which she just started a few months ago. She states the last time she checked her blood sugar was 2 weeks ago but it is usually in the low 100s. She states she did just eat a little while ago so she is expecting her blood sugar to be a little elevated if we check it now. [facility] Medical History Vitamin D deficiency Cough due to SINDHU inhibitor Right nephrolithiasis Ureterolithiasis Diabetes mellitus with microalbuminuria, without long-term current use of insulin Obesity Dyslipidemia Surgical History History of tubal ligation History of laparoscopic appendectomy Family History Father Unknown family medical history Mother Diabetes mellitus Sister No problems noted. Son No problems noted. Daughter No problems noted. 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 needs: No Hearing needs: No Vision needs: Yes Review of Systems Const All systems reviewed & are unremarkable except as noted in HPI and below Physical Exam Vital Signs: Last Vital Signs Temp 98.4 F 12/23/23 15:57 Pulse 81 12/23/23 15:57 BP 116/64 12/23/23 15:57 Pulse Ox 98 12/23/23 15:57 Oxygen Delivery Method Room Air 12/23/23 15:57 BMI result Body Mass Index 37.5 Const General: cooperative, healthy appearing, comfortable, no acute distress and well developed Orientation/consciousness: patient oriented x3 Limitations: no limitations HEENT Head: Yes normal to inspection Ears: hearing grossly normal bilaterally General nose exam: Normal external nose present Face and sinus: Yes normal facial exam Eyes General: appearance normal, both eyes and all related structures Neck Neck: Yes normal visual inspection and Yes full ROM Resp Effort & Inspection: normal respiratory effort and able to speak in complete sentences Skin General skin exam: no rashes or lesions noted Neuro General: patient oriented x3 Extrem General: Yes normal to inspection Results AMB Urinalysis, Automated UA Leukoctes 0 Jay/uL Last Edit by Jerry Grewal CMA on 12/23/23 16:12 UA Nitrite Negative Last Edit by Jerry Grewal CMA on 12/23/23 16:12 UA Urobilinogen 0.2 mg/dL Last Edit by Jerry Grewal CMA on 12/23/23 16:12 UA Protein 0 mg/dL Last Edit by Jerry Grewal CMA on 12/23/23 16:12 UA pH 6.0 Last Edit by Jerry Grewal CMA on 12/23/23 16:12 UA Blood 0 Griffin/uL Last Edit by Jerry Grewal CMA on 12/23/23 16:12 UA Specific [place] 1.010 Last Edit by Jerry Grewal CMA on 12/23/23 16:12 UA Ketone Negative Last Edit by Jerry Grewal CMA on 12/23/23 16:12 UA Bilirubin 0 mg/dL Last Edit by Jerry Grewal CMA on 12/23/23 16:12 UA Glucose 1000 mg/dL Last Edit by Jerry Grewal CMA on 12/23/23 16:12 AMB Random Glucose (hemocue) AMB Random Glucose (hemocue) 278 mg/dL Last Edit by Jerry Grewal CMA on 12/23/23 16:18 Assessment & Plan Assessment & Plan (1) UTI (urinary tract infection): Code(s): N39.0 - Urinary tract infection, site not specified Qualifiers: Urinary tract infection type: acute cystitis Hematuria presence: w ithout hematuria Qualified Code(s): N30.00 - Acute cystitis without hematuria Plan: UA had 3+ glucose, negative for infection or blood. We will treat patient based on symptoms. POC 278, recommended patient follow up with her PCP regarding her elevated glucose his Jardiance can glucose in the urine but her point of care is elevated. Advised the 3+ glucose in her urine could be was irritating her labia and she needs to get her blood sugars under for all but she can use Vagisil for symptomatic management Plan see above Orders: Orders AMB Urinalysis Automated Today Z13.9 - Encounter for screening, unspecified Medications: New cefuroxime axetil 500 mg PO Q12H 10 tabs 0RF Coding Level of Care Code Est Pt Level 3 (32733) Diagnoses Acute cystitis without hematuria N30.00 Urinary tract infection type: acute cystitis Hematuria presence: without hematuria
[2023-12-23 15:57] VITALS: BP 116/64; PULSE 81; TEMP 36.9; O2SAT 98; BMI 37.5
== END 2023-12-23 16:26 | disposition home or self-care (01) ==
PROVIDERS: PCP Internal Medicine; Visit Provider Physician Assistant
DX: N30.00 Acute cystitis without hematuria (principal)
CPT/HCPCS: 81003; 82948; 99213

== ENCOUNTER 2024-01-05 10:57 | Outpatient (AMB) | payer OTHER, SELFPAY ==
[2024-01-05 11:47] VITALS: BP 92/60; PULSE 83; O2SAT 99; BMI 37.1
--- NOTE | 2024-01-05 11:47 | A.OFFPC_ITS ---
Vital Signs 01/05/24 11:47 Height 5 ft 2 in Weight 203 lb BMI 37.1 BP 92/60 Blood Pressure Location Lt brachial Position Sitting Pulse 83 Pulse Source Pulse Oximeter Pulse Oximetry (%) 99 Oxygen Delivery Method Room Air Intake Visit Reasons: f/u walkin still burning Intake Note: Pt is here today f/u walkin UTI: no improvement Allergies lisinopril Adverse Reaction (Verified 01/11/24 04:46) Cough Medication List - Last Reconciled 01/11/24 by Alberta Rosales MD atorvastatin 10 mg PO DAILY cholecalciferol (vitamin D3) 50 mcg PO DAILY fluconazole 150 mg PO Q3D PRN 2 doses Jardiance (empagliflozin) 10 mg PO QAM NS losartan 25 mg PO DAILY metformin 500 mg PO BIDWMEAL 3 months nystatin-triamcinolone 100,000-0.1 unit/g-% 1 appl topical DAILY 10 days pyridoxine (vitamin B6) 100 mg PO DAILY 90 days Tobacco use date assessed: 01/05/24 Dental Screening Dental Screen Date: 01/05/24 Did you have a dental visit in the last 12 months?: Yes Did you have a dental problem in the last 6 months where you did not have access to dental care?: No Was dental information given to patient?: Patient has dentist HPI f/u walkin still burning HPI Details 33-year-old lady with diabetes mellitus, here today for follow-up a fter recent walk-in visit where she was treated empirically for urinary tract infection. Her urine now is at at time showed no nitrites or leukocytes but positive for glucosuria. She was instructed at that time to use [id number] vaginal cream, and empirically placed on cefuroxime 500 mg twice a day for 10 days. Patient now returns complaining still of burning sensation on vaginal area, and on urination. Denies any abnormal discharge seen, no back pain no fever. [facility] Medical History (Updated 01/11/24 @ 04:50 by Alberta Rosales MD) Vitamin D deficiency Cough due to SINDHU inhibitor Right nephrolithiasis Ureterolithiasis Diabetes mellitus with microalbuminuria, without long-term current use of insulin Obesity Dyslipidemia Surgical History History of tubal ligation History of laparoscopic appendectomy Family History Father Unknown family medical history Mother Diabetes mellitus Sister No problems noted. Son No problems noted. Daughter No problems noted. 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 1. Little interest or pleasure in doing things: not at all 2. Feeling down, depressed, or hopeless: not at all 3. Trouble falling or staying asleep, or sleeping too much: not at all 4. Feeling tired or having little energy: not at all 5. Poor appetite or overeating: not at all 6. Feeling bad about yourself - or that you are a failure or have let yourself or your family down: not at all 7. Trouble concentrating on things, such as reading the newspaper or watching television: not at all 8. Moving or speaking so slowly that other people could have noticed. Or the opposite - being so fidgety or restless that you have been moving around a lot more than usual: not at all 9. Thoughts that you would be better off or of hurting yourself in some way: not at all Total score: 0 Depression Screening Interpretation: Negative Depression Screening Done: Yes 34659 - PHQ-9 Billing: Yes Source: Developed by Drs. Juan Baker, Yessica Lam, Lexa Sheriff and colleagues, with an educational agnieszka from [employer]. Thrive Questionnaire Date Thrive assessed: 05/28/23 I am a: Patient What is your living situation today?: I have a steady place to live Within the past 12 months, did the food you bought not last and you didn't have the money to get more?: Never true Within the past 12 months, did you worry whether your food would run out before you got money to buy more?: Never true Do you have trouble paying for medicines?: No Do you have trouble getting transportation to medical appointments?: No Do you have trouble paying your heating and electricity bill?: No Do you have trouble taking care of your child, family member or friend?: No Do you have trouble with day-to-day activities such as bathing, preparing meals, shopping, managing finances, etc.?: No Are you interested in more education?: Yes Please select the resources that you would like help with: None Currently or been in a relationship where the following occur: No concerns reported THRIVE Score: 0 AUDIT C Alcohol Use Questionnaire (AUDIT-C) 1. How often do you have a drink containing alcohol?: Never Total Score: 0 ANDRESSA-7 AMB Questionnaire ANDRESSA-7 Date ANDRESSA - 7 assessed: 05/28/23 Feeling nervous, anxious, or on edge: 0 = Not at all Not being able to stop or control worryin = Not at all Worrying too much about different things: 0 = Not at all Trouble relaxin = Not at all Being so restless that it is hard to sit still: 0 = Not at all Becoming easily annoyed or irritable: 0 = Not at all Feeling afraid as if something awful might happen: 0 = Not at all Total ANDRESSA-7 score (0-4 normal; 5-9 mild; 10-14 moderate; 15-21 severe): 0 Source: Developed by Drs. Juan Baker, Yessica Lam, Lexa kevin nd colleagues, with an educational agnieszka from [employer]. Review of Systems Const All systems reviewed & are unremarkable except as noted in HPI and below GI Denies abdominal pain Denies hematuria, Denies difficulty voiding and Denies urinary incontinence Physical exam (Primary Care) Vital Signs: Last Vital Signs Pulse 83 01/05/24 11:47 BP 92/60 01/05/24 11:47 Pulse Ox 99 01/05/24 11:47 Oxygen Delivery Method Room Air 01/05/24 11:47 BMI result Body Mass Index 37.1 Tobacco/Smoking Status: Tobacco use Status Tobacco use date assessed 01/05/24 01/05/24 11:51 Patient Tobacco Use Status Never used Tobacco 01/05/24 11:51 e-Cigarette/Vaping Use Never Used 01/05/24 11:51 PHQ-9: PHQ-9 Score PHQ-9: Total score 0 09/16/24 12:12 Depression Screening Interpretation: Negative Thrive Assessment: Date of Thrive Assessment Date Thrive assessed 05/28/23 01/05/24 11:51 Currently or been in a relationship where the following occur: No concerns re ported Const General: comfortable, no acute distress and alert Orientation/consciousness: patient oriented x3 Eyes General: appearance normal, both eyes and all related structures Neck Neck: Yes full ROM, Yes no lymphadenopathy and Yes supple Resp Effort & Inspection: normal respiratory effort and able to speak in complete sentences Auscultation: clear to auscultation bilaterally Cardio Rate: regular rate Rhythm: regular rhythm Heart sounds: S1 normal heart sound present and S2 normal heart sound present GI Palpation (GI): Soft to palpation, nontender and no masses Auscultation: normal bowel sounds General: Yes no CVA tenderness External Female Exam: erythema (Labia), No externally tender and No tender Speculum Exam - Vagina: erythematous Back/Spine/Pelvis Back: no CVA tenderness Neuro General: patient oriented x3, gait normal, tone normal, moves all extremities, Normal light touch and pain sensation and no focal motor deficits Cranial nerves: Yes CN's II-XII intact bilaterally Cognition (Neuro): normal cognition Extrem General: Yes full ROM, Yes no joint enlargement, Yes no clubbing, cyanosis or edema and Yes no calf tenderness Results AMB Urinalysis, Automated UA Leukoctes 15 Jay/uL Last Edit by Amy Taylor CMA on 01/05/24 11:56 UA Nitrite Negative Last Edit by Amy Taylor CMA on 01/05/24 11:56 UA Urobilinogen 0.2 mg/dL Last Edit by Amy Taylor CMA on 01/05/24 11:56 UA Protein 0 mg/dL Last Edit by Amy Taylor CMA on 01/05/24 11:56 UA pH 6.0 Last Edit by Amy Taylor CMA on 01/05/24 11:56 UA Blood 0 Griffin/uL Last Edit by Amy Taylor CMA on 01/05/24 11:56 UA Specific Blair 1.005 Last Edit by Amy Taylor CMA on 01/05/24 11:56 UA Ketone Negative Last Edit by Amy Taylor CMA on 01/05/24 11:56 UA Bilirubin 0 mg/dL Last Edit by Amy Taylor CMA on 01/05/24 11:56 UA Glucose 1000 mg/dL Last Edit by Amy Taylor CMA on 01/05/24 11:56 AMB Hemoglobin A1c AMB Hemoglobin A1c 7.0 % Last Edit by Amy Taylor CMA on 01/05/24 12:12 Results Reviewed Results Reviewed: Laboratory Last Values Hgb A1c (Clinic) 7.0 % (4.0-6.0) H 01/05/24 12:10 Urine pH (Auto) 6.0 01/05/24 11:52 Specific Blair (Auto) 1.005 01/05/24 11:52 Urine Protein (Auto) 0 mg/dL 01/05/24 11:52 Glucose (UA)(Auto) 1000 mg/dL 01/05/24 11:52 Urine Ketones (Auto) Negative 01/05/24 11:52 Urine Blood (Auto) 0 Griffin/uL 01/05/24 11:52 Urine Nitrite (Auto) Negative 01/05/24 11:52 Urine Bilirubin (Auto) 0 mg/dL 01/05/24 11:52 Urine Urobilinogen (Auto) 0.2 mg/dL 01/05/24 11:52 Leukocyte Esterase (Auto) 15 Jay/uL 01/05/24 11:52 Assessment and Plan Assessment & Plan (1) Vaginal pruritus: Code(s): N89.8 - Other specified noninflammatory disorders of vagina Plan: Likely due to presence of glucosuria and with subsequent Nisha infection, prescription sent for fluconazole 150 mg per tablet to take 1 tablet once and may repeat another dose after 3 days if no improvement of symptoms. Prescription also sent for nystatin-triamcinolone cream to apply topically to affected area once a day for no more than 10 days. (2) Diabetes mellitus with microalbuminuria, without long-term current use of insulin: Code(s): E11.29 - Type 2 diabetes mellitus with other diabetic kidney complication; R80.9 - Proteinuria, unspecified Plan: Hemoglobin A1c today is at 7 %. Continue on Jardiance, metformin. Reinforced importance of following recommended diet and get regular exercise. Orders: Orders AMB Hemoglobin A1c 01/05/24 E11.29 - Type 2 diabetes mellitus with other diabetic kidney complication, R80.9 - Proteinuria, unspecified AMB Urinalysis Automated 01/05/24 Z13.9 - Encounter for screening, unspecified AMB Hemoglobin (HGB) 01/05/24 E11.29 - Type 2 diabetes mellitus with other diabetic kidney complication, R80.9 - Proteinuria, unspecified, Z13.9 - Encounter for screening, unspecified Medications: New fluconazole may repeat second dose 72 hrs after first dose if symptoms persist 150 mg PO Q3D PRN 2 tabs 0RF Yeast infection nystatin-triamcinolone 100,000-0.1 unit/g-% 1 appl topical DAILY 10 days 15 grams 0RF Coding Level of Care Code Est Pt Level 4 (20364) Complex EM visit Add On G2211 Diagnoses Vaginal pruritus N89.8 Diabetes mellitus with microalbuminuria, without long-term current use of insulin E11.29; R80.9
== END 2024-01-05 12:18 | disposition home or self-care (01) ==
PROVIDERS: PCP Internal Medicine; Visit Provider Internal Medicine
DX: N89.8 Other specified noninflammatory disorders of vagina (principal); E11.29 Type 2 diabetes mellitus with other diabetic kidney complication; R80.9 Proteinuria, unspecified

== ENCOUNTER → 2024-01-05 10:57 | Outpatient (BNVA) | payer OTHER, SELFPAY | PROVIDERS: PCP Internal Medicine; Visit Provider Internal Medicine | DX: N89.8 Other specified noninflammatory disorders of vagina (principal); E11.29 Type 2 diabetes mellitus with other diabetic kidney complication | CPT/HCPCS: 81003; 83036; 99212 ==

== ENCOUNTER 2024-01-07 07:11 | Outpatient (REF) | payer OTHER, SELFPAY ==
[2024-01-07 10:58] LABS: Alanine Aminotransferase 36 U/L (0-31); Anion Gap 9 (12-20); Aspartate Amino Transferase 25 U/L (5-31); Blood Urea Nitrogen 10 mg/dL (9-16); Carbon Dioxide 23 mmol/L (22-29); Chloride 110 mmol/L (96-108); Cholesterol 112 mg/dL (<200); Estimated Glomerular Filt Rate > 60; Glucose Fasting 141 mg/dL (60-99); HDL Cholesterol 33 mg/dL (>40); LDL Cholesterol Calculated 62 mg/dL (<100); Potassium 3.7 mmol/L (3.3-5.1); Sodium 138 mmol/L (135-145); Triglycerides 86 mg/dL (<150)
[2024-01-07 11:14] LABS: Vitamin D 25-OH Total 29.6 ng/mL (>30)
[2024-01-07 11:15] LABS: Creatinine Urine 27.09 mg/dL; Microalbumin Urine < 5.0 mg/L
== END 2024-01-07 07:12 | disposition home or self-care (01) ==
LOC: HO.HMGCLDS 07:11
PROVIDERS: PCP Internal Medicine; Visit Provider Internal Medicine
DX: E11.29 Type 2 diabetes mellitus with other diabetic kidney complication (principal); E55.9 Vitamin D deficiency, unspecified; R80.9 Proteinuria, unspecified; E66.01 Morbid (severe) obesity due to excess calories; Z68.39 Body mass index [BMI] 39.0-39.9, adult; E78.5 Hyperlipidemia, unspecified
CPT/HCPCS: 36415; 80048; 80061; 82043; 82306; 82570; 84450; 84460

== ENCOUNTER 2024-01-23 08:07 | Outpatient (AMB) | payer OTHER, SELFPAY ==
--- NOTE | 2024-01-23 08:08 | MHC.OFFVIS ---
Vital Signs 01/23/24 08:09 Height 5 ft 2 in Weight 198 lb BMI 36.2 BP 100/64 Intake Visit Reasons: New patient/Annual/PCP Ref Intake Note: Last pap unsure Contact And Service Clerks Supervisor: Contact And Service Clerks Supervisor Present (Luna) Allergies lisinopril Adverse Reaction (Verified 01/23/24 08:09) Cough Is last menstrual period known: Yes Last menstrual period: 01/16/24 HPI Comments Details: She is a premenopausal woman presenting for a new patient annual examination. Doing well with concerns: Cut likes or on the vulvar area. Recent antibiotic exposure. Uses Always pads. Concerned about her post tubal ligation scar hurts at times and feels lumpy. She tries to eat healthy and stays active with exercise. Regular monthly menses x3-4d. Currently is sexually active. STI screening offered; she accepts. Denies family history of breast, ovarian or colon cancer. Last pap smear unknown, negative. [facility] Medical History Vitamin D deficiency Cough due to SINDHU inhibitor Right nephrolithiasis Ureterolithiasis Diabetes mellitus with microalbuminuria, without long-term current use of insulin Obesity Dyslipidemia Surgical History History of tubal ligation History of laparoscopic appendectomy Family History Father Unknown family medical history Mother Diabetes mellitus Sister No problems noted. Son No problems noted. Daughter No problems noted. 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 needs: No Hearing needs: No Vision needs: Yes Female Reproductive History Menstrual Duration of menses: 6-7 days Date of last menstrual period: 01/16/24 control method: permanent sterilization Permanent Sterilization: BTL Total pregnancies: 3 Full term: 3 Number of Living Children: 3 Review of Systems Const All systems reviewed & are unremarkable except as noted in HPI and below Reports as per HPI Eyes Reports no additional complaints ENT Reports no additional complaints Card Reports no additional complaints Resp Reports no additional complaints GI Reports as per HPI and Reports no additional complaints Reports as per HPI Musc Reports no additional complaints Skin/Breast Reports as per HPI Neuro Reports no additional complaints Psych Reports no additional complaints Endo Reports no additional complaints Walter/Lymph Reports no additional complaints Aller/Immun Reports no additional complaints Physical Exam Vital Signs: Last Vital Signs BP 100/64 01/23/24 08:09 BMI result Body Mass Index 36.2 Const General: cooperative, healthy appearing, no acute distress, well developed and alert Orientation/consciousness: patient oriented x3 HEENT Head: Yes normal to inspection Eyes General: appearance normal, both eyes and all related structures Neck Neck: Yes normal visual inspection Thyroid: Thyroid normal Chest Chest palpation & inspection: normal inspection of the chest and other (no puckering, dimpling, peau de orange, retraction, discharge, masses) Breast/axilla inspection: normal inspection of the breasts Breast/axilla palpation: normal palpation of the breasts Resp Effort & Inspection: normal respiratory effort GI Inspection: Yes normal to inspection and Yes scar (Surgical scar-uneven edges possible keloid formation) Palpation (GI): Soft to palpation Rectal Exam - Female: deferred Other: Small fissure 3mm left upper labia minora fold General: Yes bladder normal to palpation External Female Exam: normal external appearance and normal appearance of the urethra Speculum Exam - Vagina: normal appearance of the vagina, normal palpation and normal vaginal discharge Speculum Exam - Cervix: normal appearance of the cervix, normal palpation and Other cervical findings present (Ectopy bled with) Bimanual exam- vagina & uterus: normal bimanual exam, normal palpation, uterine size normal, bladder normal to palpation, normal palpation and non-tender Bimanual Exam- Adnexa, other: no masses Skin General skin exam: no rashes or lesions noted Rashes: no rashes Neuro General: patient oriented x3 Cognition (Neuro): normal cognition Extrem General: Yes normal to inspection Psych Attitude: cooperative Thought process: Normal thought process present Assessment & Plan Assessment & Plan (1) Encounter for well woman exam with routine gynecological exam: Code(s): Z01.419 - Encounter for gynecological examination (general) (routine) without abnormal findings Category: Medical Plan Discussed: Current recommendations for pap smears per ASCCP guidelines. Pap obtained. Breast awareness and periodic breast exams. Maintain a healthy lifestyle including a well balanced diet DM diet and routine exercise. Vulvar skin care-use of topical cream. D/c Always pads, use unscented products. Scar care-consider Merderma or Vit E, preferably the first option. Patient verbalizes understanding and agrees to the plan of care. She was given opportunity to ask questions and all questions were answered to the best of my ability. RTO in one year for annual stock room manager examination. This note is constructed using voice recognition software. While every effort has been made to ensure accuracy, ball holder errors may have been included. Orders: Orders CT NG by PCR Today N89.8 - Other specified noninflammatory disorders of vagina PAP + HPV E6/E7 rfx 18 Today Z01.419 - Encounter for gynecological examination (general) (routine) without abnormal findings Bacterial Vaginosis Panel Today N89.8 - Other specified noninflammatory disorders of vagina Medications: New clotrimazole-betamethasone 1-0.05 % apply externally a thin coat to the area 1 appl topical BID 7 days 45 grams 0RF itching Coding Level of Care Code New Pt Prev Care 18-39yr(44226 Diagnoses Encounter for well woman exam with routine gynecological exam Z01.419
[2024-01-23 08:09] VITALS: BP 100/64; BMI 36.2
== END 2024-01-23 08:45 | disposition home or self-care (01) ==
PROVIDERS: PCP Internal Medicine; Visit Provider Advanced Practice Midwife
DX: Z01.419 Encounter for gynecological examination (general) (routine) without abnormal findings (principal)
CPT/HCPCS: 99385

== ENCOUNTER 2024-01-23 08:07 | Outpatient (REF) | payer OTHER, SELFPAY ==
[2024-01-24 12:47] LABS: CT PCR NOT DETECTED (Not Detect.); NG PCR NOT DETECTED (Not Detect.)
[2024-01-25 08:55] LABS: Bacterial Vaginosis PCR NEGATIVE (Negative); Candida Group PCR DETECTED (Not Detect); Candida glab krusei PCR NOT DETECTED (Not Detect); Trichomonas vaginalis PCR NOT DETECTED (Not Detect)
[2024-01-29 11:23] LABS: HPV mRNA E6/E7 Not Detected (Not Detected)
== END 2024-01-23 08:08 | disposition home or self-care (01) ==
LOC: HO.LNP 08:07
PROVIDERS: PCP Internal Medicine; Visit Provider Advanced Practice Midwife
DX: Z01.419 Encounter for gynecological examination (general) (routine) without abnormal findings (principal); N89.8 Other specified noninflammatory disorders of vagina
CPT/HCPCS: 0352U; 87491; 87591; 87624; 88175; 99385

== ENCOUNTER 2024-01-23 08:36 | Outpatient (REF) | payer OTHER, SELFPAY | END 2024-01-23 08:37 | disposition home or self-care (01) | LOC: HO.LAB 08:36 | PROVIDERS: Visit Provider Advanced Practice Midwife | DX: Z13.89 Encounter for screening for other disorder (principal) ==

== ENCOUNTER 2024-02-24 08:11 | Outpatient (AMB) | payer OTHER, SELFPAY ==
--- NOTE | 2024-02-24 08:14 | MHC.PC.OV ---
Vital Signs 02/24/24 08:15 Height 5 ft 2 in Weight 198 lb BMI 36.2 BP 110/70 Blood Pressure Location Rt brachial Position Sitting Pulse 97 Pulse Source Pulse Oximeter Temp 98.7 F Temp Source Oral Pulse Oximetry (%) 99 Oxygen Delivery Method Room Air Intake Visit Reasons: 3 Month F/U Intake Note: Pt is here today for her 3mo. f/u DM Allergies lisinopril Adverse Reaction (Verified 02/24/24 08:27) Cough Medication List - Last Reconciled 02/24/24 by Alberta Rosales MD atorvastatin 10 mg PO DAILY cholecalciferol (vitamin D3) 50 mcg PO DAILY clotrimazole-betamethasone 1-0.05 % 1 appl topical BID 7 days Jardiance (empagliflozin) 10 mg PO QAM NS losartan 25 mg PO DAILY metformin 500 mg PO BIDWMEAL 3 months pyridoxine (vitamin B6) 100 mg PO DAILY 90 days terconazole 0.8% 1 appful vaginal BEDTIME 3 days Tobacco use date assessed: 02/24/24 Dental Screening Dental Screen Date: 02/24/24 Did you have a dental visit in the last 12 months?: Yes Did you have a dental problem in the last 6 months where you did not have access to dental care?: No Was dental information given to patient?: Patient has dentist HPI 3 Month F/U HPI Details 33-year-old lady with diabetes mellitus, hyperlipidemia, hypertension, here today for follow-up. She has been compliant with taking her medications, and has been trying to follow recommended diet. Latest hemoglobin A1c has improved now down to 7%, and fasting lipids are within normal limits. Urine microalbumin came back negative for microalbuminuria. She has also been complaining persistent cold, with postnasal drainage, rhinorrhea and sore throat which has been present now for the last several days. Denies any accompanying fever, no cough or shortness of breath COUNT INCLUDES [facility] Medical History Vitamin D deficiency Cough due to SINDHU inhibitor Right nephrolithiasis Ureterolithiasis Diabetes mellitus with microalbuminuria, without long-term current use of insulin Obesity Dyslipidemia Surgical History History of tubal ligation History of laparoscopic appendectomy Family History Father Unknown family medical history Mother Diabetes mellitus Sister No problems noted. Son No problems noted. Daughter No problems noted. 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 needs: No Hearing needs: No Vision needs: Yes Questionnaire Thrive Questionnaire Date Thrive assessed: 01/05/24 I am a: Patient What is your living situation today?: I have a steady place to live Within the past 12 months, did the food you bought not last and you didn't have the money to get more?: Never true Within the past 12 months, did you worry whether your food would run out before you got money to buy more?: Never true Do you have trouble paying for medicines?: No Do you have trouble getting transportation to medical appointments?: No Do you have trouble paying your heating and electricity bill?: No Do you have trouble taking care of your child, family member or friend?: No Do you have trouble with day-to-day activities such as bathing, preparing meals, shopping, managing finances, etc.?: No Are you interested in more education?: Yes Please select the resources that you would like help with: None Currently or been in a relationship where the following occur: No concerns reported THRIVE Score: 0 AUDIT C Alcohol Use Questionnaire (AUDIT-C) 1. How often do you have a drink containing alcohol?: Never Total Score: 0 ANDRESSA-7 AMB Questionnaire ANDRESSA-7 Date ANDRESSA - 7 assessed: 05/28/23 Source: Developed by Drs. Juan Baker, Yessica Lam, Lexa Sheriff and colleagues, with an educational agnieszka from [employer]. Review of Systems Const All systems reviewed & are unremarkable except as noted in HPI and below Reports no additional complaints Eyes Reports no additional complaints ENT Reports as per HPI Card Reports no additional complaints Resp Reports no additional complaints GI Reports as per HPI and Reports no additional complaints Reports as per HPI Musc Reports no additional complaints Skin/Breast Reports as per HPI Neuro Reports no additional complaints Psych Reports no additional complaints Endo Reports no additional complaints Walter/Lymph Reports no additional complaints Aller/Immun Reports no additional complaints Physical exam (Primary Care) Vital Signs: Last Vital Signs Temp 98.7 F 02/24/24 08:15 Pulse 97 02/24/24 08:15 BP 110/70 02/24/24 08:15 Pulse Ox 99 02/24/24 08:15 Oxygen Delivery Method Room Air 02/24/24 08:15 BMI result Body Mass Index 36.2 Tobacco/Smoking Status: Tobacco use Status Tobacco use date assessed 02/24/24 02/24/24 08:18 Patient Tobacco Use Status Never used Tobacco 02/24/24 08:14 e-Cigarette/Vaping Use Never Used 02/24/24 08:14 Thrive Assessment: Date of Thrive Assessment Date Thrive assessed 01/05/24 02/24/24 08:14 Currently or been in a relationship where the following occur: No concerns reported Const General: comfortable, no acute distress and alert Orientation/consciousness: patient oriented x3 HENMT Head: Yes normocephalic Ears: external ears normal, TM's normal bilaterally and EAC's normal General nose exam: Normal external nose present and No nasal discharge present Face and sinus: Yes sinus tenderness (Maxillary area) Mouth: Normal oral and palatal mucosa present, tongue normal and moist mucous membranes Throat: Yes posterior oropharynx abnormal (Erythematous swollen tonsils bilateral) Eyes General: appearance normal, both eyes and all related structures Neck Neck: Yes full ROM, Yes no lymphadenopathy and Yes supple Resp Effort & Inspection: normal respiratory effort and able to speak in complete sentences Auscultation: clear to auscultation bilaterally Cardio Rate: regular rate Rhythm: regular rhythm Heart sounds: S1 normal heart sound present and S2 normal heart sound present GI Palpation (GI): Soft to palpation, nontender and no masses Auscultation: normal bowel sounds Neuro General: patient oriented x3, gait normal, tone normal, moves all extremities, Normal light touch and pain sensation and no focal motor deficits Cranial nerves: Yes CN's II-XII intact bilaterally Cognition (Neuro): normal cognition Extrem General: Yes full ROM, Yes no joint enlargement, Yes no clubbing, cyanosis or edema and Yes no calf tenderness Results AMB Rapid Strep AMB Rapid Strep Positive Last Edit by Amy Taylor CMA on 02/24/24 08:49 Results Reviewed Results Reviewed: Laboratory Last Values Strep Scn Rapid Clinic Positive 02/24/24 08:37 Name: Arnold Mayorga Age/Sex: 33/F : 1990 Unit#: [id number] Attend Dr: Alberta Rosales MD Re01/07/24 Status: DEP REF Location: [facility] Disch: SPEC : [id number] MARY: 01/07/24 STATUS: COMP REQ : [id number] RECD: 01/07/24-[address]: Alberta Rosales MD COMP: 01/07/24 ENTERED: 01/07/[address]: ORDERED: Met Prof Fast, AST, ALT, Lipid Panel, Vitamin D 25-OH Test Result Flag Reference Sodium 138 135-145 mmol/L Potassium 3.7 3.3-5.1 mmol/L CL 110 H 96-108 mmol/L CO2 23 22-29 mmol/L Gap 9 L 12-20 BUN 10 9-16 mg/dL Creat 0.66 0.5-1.4 mg/dL EGFR > 60 NOTE: For -[place] individuals, multiply the result by 1.210. Chronic Kidney Disease: Estimated GFR < 60 mL/min/1.73m2 Severe Kidney Disease: Estimated GFR < 15 mL/min/1.73m2 FBS 141 H 60-99 mg/dL A fasting glucose of 126 mg/dl or greater on more than one occasion is considered diagnostic of diabetes. CA 9.0 8.4-10.2 mg/dL AST (GOT) 25 5-31 U/L ALT (GPT) 36 H 0-31 U/L Triglyceride 86 <150 mg/dL Desirable Triglyceride: less than 150 mg/dL Borderline High Triglyceride 150-199 mg/dL High Triglyceride: 200-499 mg/dL Very High Triglyceride: greater than or equal to 5OO mg/dL Cholesterol 112 <200 mg/dL Desirable Cholesterol: less than 200 mg/dL Borderline High Cholesterol: 200-239 mg/dL High Cholesterol: greater than 239 mg/dL LDL Calculated 62 <100 mg/dL Desirable LDL: less than 100 mg/dL Near Optimal/Above Optimal LDL: 110-129 mg/dL Borderline High LDL: 130-159 mg/dL High LDL: 160-189 mg/dL Very High LDL: greater than or equal to 190 mg/dL HDL 33 L >40 mg/dL Desirable HDL: greater than 40 mg/dL Note: This HDL assay may give artificially low results in patients with liver disease. Vit D 25-OH Tot 29.6 L >30 ng/mL Health Based Reference Values* < 20 ng/mL Deficient 20-30 ng/mL Insufficient > 30 ng/mL Sufficient Laboratory Tests 01/05/24 12:10 Hgb A1c (Clinic) 7.0 H Laboratory Tests 01/07/24 07:19 Urine Creatinine 27.09 Urine Microalbumin < 5.0 Microalb/Creat Ratio TNP Coding Level of Care Code Est Pt Level 4 (28132) Complex EM visit Add On G2211 Diagnoses Acute respiratory infection J22 Sore throat J02.9 Diabetes mellitus with microalbuminuria, without long-term current use of insulin E11.29; R80.9 Dyslipidemia E78.5 Vitamin D deficiency E55.9 Assessment & Plan Assessment & Plan (1) Acute respiratory infection: Code(s): J22 - Unspecified acute lower respiratory infection Plan: Respiratory pathogen panel ordered. Which included COVID, flu and RSV. A rapid strep test was done which came back positive. Reviewed her on azithromycin 250 mg per tablet, to take 2 tablets initially on day 1 and then 1 tablet a day on days 2-5.. Work note given (2) Sore throat: Code(s): J02.9 - Acute pharyngitis, unspecified Plan: Positive strep test. Started on azithromycin. (3) Diabetes mellitus with microalbuminuria, without long-term current use of insulin: Code(s): E11.29 - Type 2 diabetes mellitus with other diabetic kidney complication; R80.9 - Proteinuria, unspecified Category: Medical Plan: Diabetes mellitus better controlled, will continue Jardiance 10 mg daily in a.m. and metformin 500 mg 1 tablet twice a day with meals. (4) Dyslipidemia: Code(s): E78.5 - Hyperlipidemia, unspecified Category: Medical Plan: Reviewed recent fasting lipid profile with patient with levels within normal limits . Continue atorvastatin 10 mg daily , in addition to adherence to low-cholesterol diet and regular exercise, at least 30 minutes 3 to 4 times a week. Advised patient to make healthy food choices, eat more fruits, vegetables, whole grains, wild caught fish and low-fat dairy. Limit amount of meat and fried or fatty food products, as well as processed foods and fast foods. Follow-up scheduled with repeat fasting lipid panel in months. (5) Vitamin D deficiency: Code(s): E55.9 - Vitamin D deficiency, unspecified Category: Medical Plan: Recent labs showed mildly decreased vitamin-D level. Advised to start taking [id number] vitamin-D 3 at least 2000 units daily Orders: Orders SARS-CoV2/FLU/RSV 02/24/24 J22 - Unspecified acute lower respiratory infection AMB Rapid Strep Screen 02/24/24 J02.9 - Acute pharyngitis, unspecified, Z13.9 - Encounter for screening, unspecified Medications: New azithromycin For 250 mg dose pack: take 500 mg today (day 1), then 250 mg for 4 days (days 2-5) PO 6 tabs 0RF
[2024-02-24 08:15] VITALS: BP 110/70; PULSE 97; TEMP 37.1; O2SAT 99; BMI 36.2
== END 2024-02-24 09:16 | disposition home or self-care (01) ==
LOC: HO.HMCC 08:12
PROVIDERS: PCP Internal Medicine; Visit Provider Internal Medicine
DX: J22 Unspecified acute lower respiratory infection (principal); J02.9 Acute pharyngitis, unspecified; E11.29 Type 2 diabetes mellitus with other diabetic kidney complication; R80.9 Proteinuria, unspecified; E78.5 Hyperlipidemia, unspecified; E55.9 Vitamin D deficiency, unspecified

== ENCOUNTER 2024-02-24 08:11 | Outpatient (REF) | payer OTHER, SELFPAY ==
[2024-02-24 13:06] LABS: Influenza A PCR NEGATIVE (Negative); Influenza B PCR NEGATIVE (Negative); Resp Syncy Virus RNA Qual PCR NEGATIVE (Negative); SARS COV2 PCR INHOUSE NEGATIVE (Negative)
== END 2024-02-24 08:12 | disposition home or self-care (01) ==
LOC: HO.LAB 08:11
PROVIDERS: PCP Internal Medicine; Visit Provider Internal Medicine
DX: J22 Unspecified acute lower respiratory infection (principal); J02.9 Acute pharyngitis, unspecified; E11.29 Type 2 diabetes mellitus with other diabetic kidney complication; R80.9 Proteinuria, unspecified; E78.5 Hyperlipidemia, unspecified; E55.9 Vitamin D deficiency, unspecified
CPT/HCPCS: 0241U; 87880; 99212

== ENCOUNTER 2024-03-03 13:35 | Outpatient (AMB) | payer OTHER, SELFPAY ==
[2024-03-03 13:55] VITALS: BP 102/60; BMI 36.6
--- NOTE | 2024-03-03 13:55 | MHC.OFFVIS ---
Vital Signs 03/03/24 13:55 Height 5 ft 2 in Weight 200 lb BMI 36.6 BP 102/60 Blood Pressure Location Lt brachial Position Sitting Intake Visit Reasons: vag irritation/clean catch Intake Note: ccua obtained, some blood after wiping. Jelly Filter Tender Required: No Accompanied by: Child Allergies lisinopril Adverse Reaction (Verified 03/03/24 14:01) Cough Medication List - Last Reconciled 03/03/24 by Amara Morris LPN atorvastatin 10 mg PO DAILY cholecalciferol (vitamin D3) 50 mcg PO DAILY clotrimazole-betamethasone 1-0.05 % 1 appl topical BID 7 days Jardiance (empagliflozin) 10 mg PO QAM NS losartan 25 mg PO DAILY metformin 500 mg PO BIDWMEAL 3 months pyridoxine (vitamin B6) 100 mg PO DAILY 90 days Is last menstrual period known: Yes Last menstrual period: 02/15/24 Post menopausal: No Patient : No Do you need a note to return to daycare/school/sports/work: No HPI Comments Details: Patient is here today with vulvar itching and burning, she was recently seen a few weeks ago and treated with a topical cream she is still using intermittently. She is wondering if the new medication for her diabetes is causing some of this irritation. She denies any urinary symptoms. She denies any pelvic pain. She does report that her incisional scar from last December, around her periumbilical area does ache at times she has been using Mederma cream. [facility] Medical History Vitamin D deficiency Cough due to SINDHU inhibitor Right nephrolithiasis Ureterolithiasis Diabetes mellitus with microalbuminuria, without long-term current use of insulin Obesity Dyslipidemia Surgical History History of tubal ligation History of laparoscopic appendectomy Family History Father Unknown family medical history Mother Diabetes mellitus Sister No problems noted. Son No problems noted. Daughter No problems noted. 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 needs: No Hearing needs: No Vision needs: Yes Female Reproductive History Menstrual Date of last menstrual period: 02/15/24 Review of Systems Const All systems reviewed & are unremarkable except as noted in HPI and below Physical Exam Vital Signs: Last Vital Signs BP 102/60 03/03/24 13:55 BMI result Body Mass Index 36.6 Const General: cooperative, healthy appearing and no acute distress Orientation/consciousness: patient oriented x3 GI Inspection: Yes normal to inspection Palpation (GI): Soft to palpation and Other GI palpation findings present (Nontender) Rectal Exam - Female: visual inspection normal Other: External erythema bilateral labia General: Yes bladder normal to palpation External Female Exam: normal appearance of the urethra Speculum Exam - Vagina: normal appearance of the vagina, normal palpation and normal vaginal discharge Speculum Exam - Cervix: normal appearance of the cervix and normal palpation Bimanual exam- vagina & uterus: normal bimanual exam, normal palpation, uterine size normal, bladder normal to palpation, normal palpation, uterine shape normal and non-tender Bimanual Exam- Adnexa, other: normal adnexae Neuro General: patient oriented x3 Results AMB Urinalysis Dipstick UR Leukocytes Negative Last Edit by Amara Morris LPN on 03/03/24 14:07 UR Nitrite Negative Last Edit by Amara Morris LPN on 03/03/24 14:07 UR Urobilinogen 2 Last Edit by Amraa Morris LPN on 03/03/24 14:07 UR Protein Negative Last Edit by Amara Morris LPN on 03/03/24 14:07 UR Ph 6.0 Last Edit by Amara Morris LPN on 03/03/24 14:07 UR Blood Negative Last Edit by Amara Morris LPN on 03/03/24 14:07 UR Specific [place] 1.010 Last Edit by Amara Morris LPN on 03/03/24 14:07 UR Ketone Negative Last Edit by Amara Morris LPN on 03/03/24 14:07 UR Bilirubin Negative Last Edit by Amara Morris LPN on 03/03/24 14:07 UR Glucose 100 Last Edit by Amara Morris LPN on 03/03/24 14:07 Results Reviewed Results Reviewed: Laboratory Last Values Urine pH (Clinic) 6.0 03/03/24 14:05 Specific [place] (Clinic) 1.010 03/03/24 14:05 Ur Protein (Clinic) Negative 03/03/24 14:05 Ur Ketones (Clinic) Negative 03/03/24 14:05 Urine Blood (Clinic) Negative 03/03/24 14:05 Urine Nitrite Negative 03/03/24 14:05 Urine Bilirubin (Clinic) Negative 03/03/24 14:05 Urobilinogen (Clinic) 2 03/03/24 14:05 Leukocyte Esterase (Clinic) Negative 03/03/24 14:05 Urine Glucose (Clinic) 100 03/03/24 14:05 Assessment & Plan Assessment & Plan (1) Vulvar irritation: Code(s): N90.89 - Other specified noninflammatory disorders of vulva and perineum Plan Discussed: Her new medicine Jardiance can cause some irritation, she wants to speak to her provider about her medication options. Await BV panel for results. Can use the topical cream for now. Follow up with surgeon regarding surgical scar pain. All of her questions and concerns were addressed to the best of my ability and shared decision making. She is agreeable to the plan of care. This note is constructed using voice recognition software. While every effort has been made to ensure accuracy, exhaust and muffler repairer errors may have been included. Coding Level of Care Code Est Pt Level 3 (77746) Diagnoses Vulvar irritation N90.89
== END 2024-03-03 14:27 | disposition home or self-care (01) ==
PROVIDERS: PCP Internal Medicine; Visit Provider Advanced Practice Midwife
DX: N90.89 Other specified noninflammatory disorders of vulva and perineum (principal)
CPT/HCPCS: 99213

== ENCOUNTER 2024-03-03 13:35 | Outpatient (REF) | payer OTHER, SELFPAY ==
[2024-03-04 12:06] LABS: Bacterial Vaginosis PCR NEGATIVE (Negative); Candida Group PCR DETECTED (Not Detect); Candida glab krusei PCR NOT DETECTED (Not Detect); Trichomonas vaginalis PCR NOT DETECTED (Not Detect)
== END 2024-03-03 13:36 | disposition home or self-care (01) ==
LOC: HO.LNP 13:35
PROVIDERS: PCP Internal Medicine; Visit Provider Advanced Practice Midwife
DX: N94.89 Other specified conditions associated with female genital organs and menstrual cycle (principal)
CPT/HCPCS: 0352U; 99212

== ENCOUNTER 2024-06-22 18:34 | Emergency (ER) | payer OTHER, SELFPAY ==
--- NOTE | ~2024-06-22 | CT_ITS ---
CLINICAL HISTORY: Stroke Protocol CT angiography head and neck with contrast. 3D Postprocessing. Comparison: CT/SR - CT HEAD FOR STROKE - 06/22/24 18:56 EST Findings: Aortic arch and cervical great vessels are patent. Intracranial arteries are patent. No aneurysm, dissection, or occlusion. No abnormal intracranial enhancement. The visualized thyroid gland is unremarkable. No cervical mass or fluid collection. Lung apices clear. No acute fracture. IMPRESSION: Patent head and neck CTA. No significant atherosclerotic disease. This document has been electronically signed by: Luz Connolly MD on 06/22/2024 19:32:45
--- NOTE | ~2024-06-22 | CT_ITS ---
CLINICAL HISTORY: Stroke Protocol, RIGHT ARM WEAKNESS CT head without contrast Comparison: None Findings: No intra-axial mass, midline shift, hydrocephalus, or acute hemorrhage. No significant atrophy-like change or white matter disease. The visualized paranasal sinuses and mastoid air cells are normal. The orbits are within normal limits. There is no acute fracture. IMPRESSION: 1. No acute intracranial findings. This document has been electronically signed by: Luz Connolly MD on 06/22/2024 19:10:44
--- NOTE | 2024-06-22 18:47 | ED.GENADULT ---
HPI - General Adult General Chief complaint: Neuro Symptoms/Deficit Stated complaint: Jaw pain, rightside weakness from right arm Time Seen by Provider: 06/22/24 19:05 Source: patient Mode of arrival: ambulatory Limitations: no limitations History of Present Illness ED Provider: Dr. Jeison Conway HPI narrative: 33-year-old female who presents emergency department for evaluation of jaw pain, right-sided hand weakness and left-sided headache. Patient states that around noon time she developed pain in her lower jaw. She states that this pain has been constant but it was improved since its onset. She states that around 16:00 hours while she was sitting she developed weakness in her right hand and right arm. She states that around 16:45 hours when she was cooking she felt like the weakness was getting worse. Shortly after that she did developed a left-sided posterior headache which she describes as a throbbing which is 6/10 at its worst. Patient states she gets 15 headaches per week but this headache seems to be different than her usual headaches. Patient had no associated visual change, nausea or vomiting. Related Data Home Medications ?Medication ?Instructions ?Recorded ?Confirmed cholecalciferol (vitamin D3) 50 50 mcg PO DAILY 12/23/23 03/03/24 mcg (2,000 unit) capsule Previous Rx's ?Medication ?Instructions ?Recorded atorvastatin 10 mg tablet 10 mg PO DAILY #90 tabs 05/28/23 losartan 25 mg tablet 25 mg PO DAILY #90 tabs 05/28/23 pyridoxine (vitamin B6) 100 mg 100 mg PO DAILY 90 days #90 tabs 12/10/23 tablet clotrimazole-betamethasone 1 1 appl topical BID itching 7 days 01/23/24 %-0.05 % topical cream #45 grams miconazole nitrate 2 % vaginal 1 appful vaginal BEDTIME 7 days 03/04/24 cream (Monistat 7) #45 grams metformin 1,000 mg tablet 1,000 mg PO BIDWMEAL 3 months #180 05/03/24 tabs Allergies Allergy/AdvReac Type Severity Reaction Status Date / Time lisinopril AdvReac Cough Verified 06/22/24 18:52 Review of Systems Review of Systems: Yes all other systems are reviewed and are negative [facility] Past Medical History [facility] Narrative: Social history: Patient denies tobacco, alcohol and drug use. Medical History Vitamin D deficiency Cough due to SINDHU inhibitor Right nephrolithiasis Ureterolithiasis Diabetes mellitus with microalbuminuria, without long-term current use of insulin Obesity Dyslipidemia Surgical History History of tubal ligation History of laparoscopic appendectomy Family History Family History Father Unknown family medical history Mother Diabetes mellitus Sister No problems noted. Son No problems noted. Daughter No problems noted. 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 Cognitive needs: No Hearing needs: No Vision needs: Yes Physical Exam ED Vital Signs: Vital Signs - 24 hr 06/22/24 18:48 06/22/24 20:19 06/22/24 21:50 Temperature 98.2 F 97.7 F 97.5 F Pulse Rate 83 73 82 Respiratory Rate 18 21 H 18 Blood Pressure 136/99 H 109/63 93/52 L Pulse Oximetry 99 98 97 Oxygen Delivery Method Room Air Room Air Room Air BMI result Body Mass Index 37.4 Vital signs revealed an elevated blood pressure of 136/99 otherwise unremarkable Exam: General: Awake, alert in no distress Head: Normocephalic, atraumatic, no temporal tenderness EENT: PERRL, Lids normal, sclera normal, conjunctiva normal, nose normal , ears normal, throat without erythema or exudates Neck: Supple, no adenopathy Lung: breath sounds symmetric, no wheezing, rales or rhonchi Chest: symmetric movement, nontender Heart: regular rate and rhythm, normal S1, S2 no murmurs or rubs Abdomen: soft, non-tender, nondistended, normal bowel sounds Back: no vertebral tenderness, no CVAT Extremities: no deformities, moves all extremities symmetrically Neuro: General: Awake, alert, oriented, normal speech Cranial nerves: cranial nerves intact Strength: Upper extremities: Patient does have a drift of the right upper extremity compared to the left, patient also has diminished strength in the right upper extremity compared to the left Lower extremities: No drift, symmetric strength Sensory: Symmetric bilateral Cerebellar: Normal [id number]-finger, normal rapid finger movement, normal heel to payne Psych: Pleasant, cooperative NIH Stroke Scale Internal: Initial- Upon Arrival Level of Consciousness: Alert Level of Consciousness Questions: Answers both questions correctly Level of Consciousness Commands: Performs both tasks correctly Best Gaze: Normal Visual: No visual loss Facial Palsy: Normal Motor Arm (Right): Drift Motor Arm (Left): No drift Motor Leg (Right): No drift Motor Leg (Left): No drift Limb Ataxia: Absent Sensory: Normal Best Language: No aphasia Dysarthia: Normal Extinction and Inattention: No abnormality Score: 1 Course Course Course Narrative: This is an RME: Additional HPI, ROS, PE not included below will be deferred to primary provider. RME assessment and note performed by: Mere Kaur PA-C This is a [id number]-female, with a hx of dyslipidemia, DM, who presents to the ER with complaints of right jaw and right arm weakness. Reports she had right sided jaw pain around noon. Reports that when she got out of work at 4pm she felt that her arm was weak. Reporting headache, no dizziness, blurred vision. No CP or SOB. Pt with +pronator drift, weakness to right arm appreciated, stroke alert placed and pt brought back ANASTASIA. Medications Administered Discontinued Medications Generic Name Dose Route Start Last Admin Trade Name Freq PRN Reason Stop Dose Admin Diphenhydramine HCl 50 mg 06/22/24 19:41 06/22/24 20:03 Diphenhydramine Hcl 50 Mg/Ml Vial IVPUSH 06/22/24 19:42 50 mg ONCE STA Administration Sodium Chloride 1,000 mls @ 999 mls/hr 06/22/24 19:41 06/22/24 20:03 Ns IV 06/22/24 20:41 999 mls/hr .Q1H1M STA Administration Iohexol 100 ml 06/22/24 19:04 06/22/24 19:05 Iohexol 350 Mg/Ml 100 Ml Infus..Btl IV 06/22/24 19:05 70 ml ONCE ONE Administration Ketorolac Tromethamine 15 mg 06/22/24 19:41 06/22/24 20:03 Ketorolac Tromethamine 15 Mg/Ml Vial IVPUSH 06/22/24 19:42 15 mg ONCE STA Administration Metoclopramide HCl 10 mg 06/22/24 19:41 06/22/24 20:03 Metoclopramide Hcl 10 Mg/2 Ml Vial IVPUSH 06/22/24 19:42 10 mg ONCE STA Administration Medical Decision Making Medical Decision Making [facility] Narrative: 33-year-old female who presents emergency department for evaluation of cause jaw pain since noon, right-sided hand weakness since 16:00 hours and left-sided headache since 1700. Patient's left-sided headache is a throbbing sensation in his 6/10 at its worse, different than her usual headaches-she gets 15 headaches per month. Patient had no associated visual change, nausea, vomiting or other symptoms. Vital signs revealed an elevated blood pressure otherwise unremarkable. Physical examination revealed right upper extremity drift otherwise a normal neurologic exam. Patient was NIH stroke scale was 1. Differential diagnosis: ?Includes but is not limited to stroke, TIA, complex migraine, myocardial infarction, myocardial ischemia, electrolyte abnormalities, anemia Course: 19:56 CT scan of the brain without IV contrast revealed no acute disease. CT angiogram of the head and neck revealed no significant atherosclerotic disease My interpretation patient's laboratory evaluation is as follows: CBC revealed mild anemia with an H&H of 12.9 and 36.9. Platelet count was normal 282. PT/INR was normal. Glucose elevated 196. Troponin was normal. Nonfasting lipid panel was unremarkable except for a low LDH of 39. I did discuss the patient's presentation with our covering neurologist Dr. Null. Given the patient's low NIH stroke scale this patient was not a thrombolytics patient. Also given the fact that she has a left-sided headache with right-sided weakness, Dr. Null recommended that we treat the patient for a complex migraine. Therefore the patient was given Reglan 10 mg IV, Benadryl 50 mg IV, Toradol 15 mg IV and normal saline x1 L. 22:31 The patient states that her headache is completely resolved. She states that the weakness in her right arm is improved and she was a little bit of numbness in her hand. Repeat physical examination revealed no right upper extremity drift and normal strength exam in the right upper extremity symmetric with the left upper extremity. The patient most likely has a migraine syndrome that has been undiagnosed. She told me that with her previous headache she often gets a visual change 1st and then a headache. Patient was advised to take Excedrin migraine 2 pills every 6 hours as needed for headache. She was given printed and verbal instructions and discharged home. She was also given a return to work note for 06/24/2024 Admission/Observation Consideration of admission/observation: Escalation of care including admission/observation considered (Yes) Consult Healthcare Provider Management of the patient was discussed with: Recooperer (Neurologist Dr. Null) Lab Data MDM Lab Attestation statement: I reviewed the patient's lab results. 06/22/24 19:04 06/22/24 19:04 Labs: Lab Results 06/22/24 06/22/24 Range/Units 19:02 19:04 WBC 8.2 (4.8-10.8) X10*3/uL RBC 4.49 (4.20-5.50) X10*6/uL Hgb 12.9 (12.0-16.0) g/dl Hct 36.9 L (37.0-47.0) % MCV 82.2 (80.0-98.0) fL MCH 28.7 (27.0-33.0) pg MCHC 35.0 (31.0-35.0) g/dl RDW 13.6 (11.0-16.0) % Plt Count 282 D (160-400) X10*3/uL MPV 9.2 L (9.4-12.3) fL Immature Gran % (Auto) 0.5 H (0.0-0.4) % Neut % (Auto) 48.2 (45-73) % Lymph % (Auto) 42.3 H (20-40) % [place] % (Auto) 6.7 (2-11) % Eos % (Auto) 1.8 (0-4) % Baso % (Auto) 0.5 (0-2) % Lymph # (Auto) 3.5 (1.2-4.9) X10*3/uL [place] # (Auto) 0.6 (0.1-1.2) X10*3/uL Eos # (Auto) 0.2 (0.0-0.4) X10*3/uL Baso # (Auto) 0.0 (0.0-0.2) X10*3/uL Abs Immat Gran (auto) 0.04 H (0.00-0.03) X10*3/uL Absolute Neuts (auto) 4.0 (2.0-8.3) x10*3/uL Absolute Nucleated RBC 0.000 (0.0-0.012) X10*3/uL Nucleated RBC % (auto) 0.0 (0.0-0.2) /100WBC PT 10.4 L (10.9-12.4) SEC INR 0.9 (0.9-1.1) APTT 35.0 (26.0-36.8) SEC Sodium 140 (135-145) mmol/L Potassium 3.6 (3.3-5.1) mmol/L Chloride 108 (96-108) mmol/L Carbon Dioxide 27 (22-29) mmol/L Anion Gap 9 L (12-20) BUN 8 L (9-16) mg/dL Creatinine 0.66 (0.5-1.4) mg/dL Estim Creat Clear Calc 127.3 Estimated GFR > 60 POC Glucose 172 H (60-115) mg/dL Random Glucose 196 H (60-115) mg/dL Calcium 9.2 (8.4-10.2) mg/dL Troponin I High Sens < 2.7 (<3.5-17.0) ng/L Triglycerides 87 (<150) mg/dL Cholesterol 126 (<200) mg/dL LDL Cholesterol, Calc 70 (<100) mg/dL HDL Cholesterol 39 L (>40) mg/dL Independent Interpretation I performed an independent interpretation of an: EKG Interpretation: My independent interpretation patient's 12 EKG done at 19:27 hours is as follows: Normal sinus rhythm rate of 74, normal ME interval, QRS duration QTC interval, no ST segment elevation, no ST segment depression, no T-wave abnormalities, no PACs, no PVCs-this is a normal EKG. Radiology Impression Discussion of test interpretation with radiology: I discussed test interpretation with the radiologist and I have reviewed the radiologist's reading. Radiologist Impression: CT angiography head and neck with contrast. 3D Postprocessing. Comparison: CT/SR - CT HEAD FOR STROKE - 06/22/24 18:56 EST Findings: Aortic arch and cervical great vessels are patent. Intracranial arteries are patent. No aneurysm, dissection, or occlusion. No abnormal intracranial enhancement. The visualized thyroid gland is unremarkable. No cervical mass or fluid collection. Lung apices clear. No acute fracture. IMPRESSION: Patent head and neck CTA. No significant atherosclerotic disease. This document has been electronically signed by: Luz Connolly MD on 06/22/2024 19:32:45 CLINICAL HISTORY: Stroke Protocol, RIGHT ARM WEAKNESS CT head without contrast Comparison: None Findings: No intra-axial mass, midline shift, hydrocephalus, or acute hemorrhage. No significant atrophy-like change or white matter disease. The visualized paranasal sinuses and mastoid air cells are normal. The orbits are within normal limits. There is no acute fracture. IMPRESSION: 1. No acute intracranial findings. This document has been electronically signed by: Luz Connolly MD on 06/22/2024 19:10:44 Dictated By: Luz Connolly MD Independent Historian Clinical information obtained from an independent historian. History obtained from or confirmed by: Spouse Chronic Conditions Patient?s care impacted by: Diabetes Critical Care Time Critical Care Time Critical Care Time: Yes Total Critical Care Time: 35 Attestation: Critical Care: The patient was critically ill with a high probability of imminent or life threatening deterioration. I spent greater than 30 minutes of discontinuous time evaluating the patient,delivering critical care at the bedside, discussing and evaluating pertinent data with consultants. Critical care time does not include time spent performing separately billable procedures or teaching. Total time spent performing critical care was 35 minutes. Discharge Plan Discharge Clinical Impression: Acute migraine, Right arm weakness Patient Disposition: Home, Self-Care Instructions: Migraine Headache (ED) Additional Instructions: The CT scan of your brain without contrast was normal. The CT scan arteriogram of your head and neck with IV contrast was normal, there were no blood clots in your arteries, no narrowing of the arteries and no large aneurysms noted by the radiologist. Your blood work was unremarkable. Your symptoms are consistent with a complex migraine-this is a migraine that causes numbness and weakness in your extremities. Take Excedrin migraine 2 pills every 6 hours as needed for your headaches. Follow-up with your doctor in 2 days. Please return to the emergency department if your symptoms get worse or if you develop any symptoms that are concerning to you. Please see the return to work note Prescriptions: No Action miconazole nitrate [Monistat 7] 2 % cream 1 appful vaginal BEDTIME 7 Days Qty: 45 0RF metformin 1,000 mg tablet 1,000 mg PO BIDWMEAL 90 Days Qty: 180 4RF losartan 25 mg tablet 25 mg PO DAILY Qty: 90 3RF atorvastatin 10 mg tablet 10 mg PO DAILY Qty: 90 3RF cholecalciferol (vitamin D3) 50 mcg (2,000 unit) capsule 50 mcg PO DAILY pyridoxine (vitamin B6) 100 mg tablet 100 mg PO DAILY 90 Days Qty: 90 4RF clotrimazole-betamethasone 1-0.05 % cream 1 appl topical BID 7 Days Qty: 45 0RF Rx Instructions: apply externally a thin coat to the area Stand Alone Forms: Work/School Release Print Language: Grenadian
[2024-06-22 18:48] VITALS: BP 136/99; PULSE 83; RESP 18; TEMP 36.8; O2SAT 99; BMI 37.4
--- NOTE | 2024-06-22 18:53 | ECG_ITS ---
Test Reason : STROKE PROTOCOL Blood Pressure : */* mmHG Vent. Rate : 74 BPM Atrial Rate : 74 BPM P-R Int : 186 ms QRS Dur : 84 ms QT Int : 366 ms P-R-T Axes : 46 29 29 degrees QTcB Int : 406 ms Normal sinus rhythm Normal ECG No previous ECGs available Referred By: Mere Kaur Electronically Signed By: OCTAVIA LÓPEZ MD
[2024-06-22] MEDS: iohexoL 350 MG/ML 100 ML INFUS..BTL IV (19:05)
[2024-06-22 19:09] LABS: MANUAL DIFF FLAG NO
[2024-06-22 19:10] LABS: Basophils Percent Auto 0.5 % (0-2); Eosinophils Absolute Auto 0.2 X10*3/uL (0.0-0.4); Eosinophils Percent Auto 1.8 % (0-4); Hematocrit 36.9 % (37.0-47.0); Hemoglobin 12.9 g/dl (12.0-16.0); Imm Gran Abs Auto 0.04 X10*3/uL (0.00-0.03); Imm Gran Pct Auto 0.5 % (0.0-0.4); Lymphocytes Absolute Auto 3.5 X10*3/uL (1.2-4.9); Lymphocytes Percent Auto 42.3 % (20-40); Mean Corpuscular Hemoglobin 28.7 pg (27.0-33.0); Mean Corpuscular Volume 82.2 fL (80.0-98.0); Mean Platelet Volume 9.2 fL (9.4-12.3); Monocytes Absolute Auto 0.6 X10*3/uL (0.1-1.2); Monocytes Percent Auto 6.7 % (2-11); Neutrophils Percent Auto 48.2 % (45-73); Platelet Count 282 X10*3/uL (160-400); Red Blood Count 4.49 X10*6/uL (4.20-5.50); Red Cell Distribution Width 13.6 % (11.0-16.0); White Blood Count 8.2 X10*3/uL (4.8-10.8)
[2024-06-22 19:10] LABS: Glucose, Whole Blood 172 mg/dL (60-115)
[2024-06-22 19:16] LABS: INTERNATIONAL NORM RATIO 0.9 (0.9-1.1); Prothrombin Time 10.4 SEC (10.9-12.4)
[2024-06-22 19:29] LABS: Anion Gap 9 (12-20); Blood Urea Nitrogen 8 mg/dL (9-16); Calcium 9.2 mg/dL (8.4-10.2); Carbon Dioxide 27 mmol/L (22-29); Chloride 108 mmol/L (96-108); Cholesterol 126 mg/dL (<200); Creatinine Clr Calc Pharmacy 127.3; Estimated Glomerular Filt Rate > 60; Glucose Random 196 mg/dL (60-115); HDL Cholesterol 39 mg/dL (>40); LDL Cholesterol Calculated 70 mg/dL (<100); Potassium 3.6 mmol/L (3.3-5.1); Sodium 140 mmol/L (135-145); Triglycerides 87 mg/dL (<150)
[2024-06-22 19:34] LABS: Troponin-I High Sensitivity < 2.7 ng/L (<3.5-17.0)
[2024-06-22 19:41] LABS: Stroke Lab Use COMPLETE
--- NOTE | 2024-06-22 19:42 | ED_ITS ---
HPI - Neuro Symptoms/Deficit General Chief Complaint: Neuro Symptoms/Deficit Stated Complaint: Jaw pain, rightside weakness from right arm Time Seen by Provider: 06/22/24 19:05 Source: patient Mode of arrival: ambulatory Limitations: no limitations History of Present Illness ED Provider: Dr. Jeison Conway HPI Narrative: 33-year-old female who presents emergency department for evaluation of jaw pain, right-sided hand weakness and left-sided headache. Patient states that around noon time she developed pain in her lower jaw. She states that this pain has been constant but it was improved since its onset. She states that around 16:00 hours while she was sitting she developed weakness in her right hand and right arm. She states that around 16:45 hours when she was cooking she felt like the weakness was getting worse. Shortly after that she did developed a left-sided posterior headache which she describes as a throbbing which is 6/10 at its worst. Patient states she gets 15 headaches per week but this headache seems to be different than her usual headaches. Patient had no associated visual change, nausea or vomiting. Patient was not take control pill Related Data Home Medications ?Medication ?Instructions ?Recorded ?Confirmed cholecalciferol (vitamin D3) 50 50 mcg PO DAILY 12/23/23 03/03/24 mcg (2,000 unit) capsule Previous Rx's ?Medication ?Instructions ?Recorded atorvastatin 10 mg tablet 10 mg PO DAILY #90 tabs 05/28/23 losartan 25 mg tablet 25 mg PO DAILY #90 tabs 05/28/23 pyridoxine (vitamin B6) 100 mg 100 mg PO DAILY 90 days #90 tabs 12/10/23 tablet clotrimazole-betamethasone 1 1 appl topical BID itching 7 days 01/23/24 %-0.05 % topical cream #45 grams miconazole nitrate 2 % vaginal 1 appful vaginal BEDTIME 7 days 03/04/24 cream (Monistat 7) #45 grams metformin 1,000 mg tablet 1,000 mg PO BIDWMEAL 3 months #180 05/03/24 tabs Allergies Allergy/AdvReac Type Severity Reaction Status Date / Time lisinopril AdvReac Cough Verified 06/22/24 18:52 Review of Systems 2 Review of Systems: Yes all other systems are reviewed and are negative PMFSH Past Medical History [facility] Narrative: Social history: She denies tobacco, alcohol and drug use. Medical History Vitamin D deficiency Cough due to SINDHU inhibitor Right nephrolithiasis Ureterolithiasis Diabetes mellitus with microalbuminuria, without long-term current use of insulin Obesity Dyslipidemia Surgical History History of tubal ligation History of laparoscopic appendectomy Family History Family History Father Unknown family medical history Mother Diabetes mellitus Sister No problems noted. Son No problems noted. Daughter No problems noted. 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 Cognitive needs: No Hearing needs: No Vision needs: Yes Physical Exam 2 Vital Signs: Vital Signs: Last Vital Signs Temp 97.5 F 06/22/24 21:50 Pulse 82 06/22/24 21:50 Resp 18 06/22/24 21:50 BP 93/52 L 06/22/24 21:50 Pulse Ox 97 06/22/24 21:50 O2 Del Method Room Air 06/22/24 21:50 BMI result Body Mass Index 37.4 Medications Administered Discontinued Medications Generic Name Dose Route Start Last Admin Trade Name Freq PRN Reason Stop Dose Admin Diphenhydramine HCl 50 mg 06/22/24 19:41 06/22/24 20:03 Diphenhydramine Hcl 50 Mg/Ml Vial IVPUSH 06/22/24 19:42 50 mg ONCE STA Administration Sodium Chloride 1,000 mls @ 999 mls/hr 06/22/24 19:41 06/22/24 20:03 Ns IV 06/22/24 20:41 999 mls/hr .Q1H1M STA Administration Iohexol 100 ml 06/22/24 19:04 06/22/24 19:05 Iohexol 350 Mg/Ml 100 Ml Infus..Btl IV 06/22/24 19:05 70 ml ONCE ONE Administration Ketorolac Tromethamine 15 mg 06/22/24 19:41 06/22/24 20:03 Ketorolac Tromethamine 15 Mg/Ml Vial IVPUSH 06/22/24 19:42 15 mg ONCE STA Administration Metoclopramide HCl 10 mg 06/22/24 19:41 06/22/24 20:03 Metoclopramide Hcl 10 Mg/2 Ml Vial IVPUSH 06/22/24 19:42 10 mg ONCE STA Administration Medical Decision Making Lab Data 06/22/24 19:04 06/22/24 19:04 Labs: Lab Results 06/22/24 06/22/24 Range/Units 19:02 19:04 WBC 8.2 (4.8-10.8) X10*3/uL RBC 4.49 (4.20-5.50) X10*6/uL Hgb 12.9 (12.0-16.0) g/dl Hct 36.9 L (37.0-47.0) % MCV 82.2 (80.0-98.0) fL MCH 28.7 (27.0-33.0) pg MCHC 35.0 (31.0-35.0) g/dl RDW 13.6 (11.0-16.0) % Plt Count 282 D (160-400) X10*3/uL MPV 9.2 L (9.4-12.3) fL Immature Gran % (Auto) 0.5 H (0.0-0.4) % Neut % (Auto) 48.2 (45-73) % Lymph % (Auto) 42.3 H (20-40) % Bailey % (Auto) 6.7 (2-11) % Eos % (Auto) 1.8 (0-4) % Baso % (Auto) 0.5 (0-2) % Lymph # (Auto) 3.5 (1.2-4.9) X10*3/uL [place] # (Auto) 0.6 (0.1-1.2) X10*3/uL Eos # (Auto) 0.2 (0.0-0.4) X10*3/uL Baso # (Auto) 0.0 (0.0-0.2) X10*3/uL Abs Immat Gran (auto) 0.04 H (0.00-0.03) X10*3/uL Absolute Neuts (auto) 4.0 (2.0-8.3) x10*3/uL Absolute Nucleated RBC 0.000 (0.0-0.012) X10*3/uL Nucleated RBC % (auto) 0.0 (0.0-0.2) /100WBC PT (Fingerstick) 11.0 L (11.1-13.5) sec PT 10.4 L (10.9-12.4) SEC INR (Fingerstick) 0.9 (0.9-1.1) INR 0.9 (0.9-1.1) APTT 35.0 (26.0-36.8) SEC Sodium 140 (135-145) mmol/L Potassium 3.6 (3.3-5.1) mmol/L Chloride 108 (96-108) mmol/L Carbon Dioxide 27 (22-29) mmol/L Anion Gap 9 L (12-20) BUN 8 L (9-16) mg/dL Creatinine 0.66 (0.5-1.4) mg/dL Estim Creat Clear Calc 127.3 Estimated GFR > 60 POC Glucose 172 H (60-115) mg/dL Random Glucose 196 H (60-115) mg/dL Calcium 9.2 (8.4-10.2) mg/dL Troponin I High Sens < 2.7 (<3.5-17.0) ng/L Triglycerides 87 (<150) mg/dL Cholesterol 126 (<200) mg/dL LDL Cholesterol, Calc 70 (<100) mg/dL HDL Cholesterol 39 L (>40) mg/dL Critical Care Time Critical Care Time Critical Care Time: Yes Total Critical Care Time: 45 Attestation: Critical Care: The patient was critically ill with a high probability of imminent or life threatening deterioration. I spent greater than 30 minutes of discontinuous time evaluating the patient,delivering critical care at the bedside, discussing and evaluating pertinent data with consultants. Critical care time does not include time spent performing separately billable procedures or teaching. Total time spent performing critical care was 45 minutes. Discharge Plan Discharge Clinical Impression: Acute migraine, Right arm weakness Patient Disposition: Home, Self-Care Instructions: Migraine Headache (ED) Additional Instructions: The CT scan of your brain without contrast was normal. The CT scan arteriogram of your head and neck with IV contrast was normal, there were no blood clots in your arteries, no narrowing of the arteries and no large aneurysms noted by the radiologist. Your blood work was unremarkable. Your symptoms are consistent with a complex migraine-this is a migraine that causes numbness and weakness in your extremities. Take Excedrin migraine 2 pills every 6 hours as needed for your headaches. Follow-up with your doctor in 2 days. Please return to the emergency department if your symptoms get worse or if you develop any symptoms that are concerning to you. Please see the return to work note Prescriptions: No Action miconazole nitrate [Monistat 7] 2 % cream 1 appful vaginal BEDTIME 7 Days Qty: 45 0RF metformin 1,000 mg tablet 1,000 mg PO BIDWMEAL 90 Days Qty: 180 4RF losartan 25 mg tablet 25 mg PO DAILY Qty: 90 3RF atorvastatin 10 mg tablet 10 mg PO DAILY Qty: 90 3RF cholecalciferol (vitamin D3) 50 mcg (2,000 unit) capsule 50 mcg PO DAILY pyridoxine (vitamin B6) 100 mg tablet 100 mg PO DAILY 90 Days Qty: 90 4RF clotrimazole-betamethasone 1-0.05 % cream 1 appl topical BID 7 Days Qty: 45 0RF Rx Instructions: apply externally a thin coat to the area Stand Alone Forms: Work/School Release Discharge Date/Time: 06/22/24 22:46 Print Language: Mauritian
[2024-06-22] MEDS: 0.9 % Sodium Chloride 1,000 ML 999 ML IV (20:03)
[2024-06-22] MEDS: Ketorolac Tromethamine 15 MG/ML VIAL IVPUSH (20:03)
[2024-06-22] MEDS: Metoclopramide HCl 10 MG/2 ML VIAL IVPUSH (20:03)
[2024-06-22] MEDS: diphenhydrAMINE HCL 50 MG/ML VIAL IVPUSH (20:03)
--- NOTE | 2024-06-22 20:10 | PC.NURSE ---
pt medicated per jun, Dr. Conway into complete neuro assessment, Ct scan completed. pt able to speak in full sentence, neuro intact. pt given a warm blanket and resting in stretcher
[2024-06-22 20:19] VITALS: BP 109/63; PULSE 73; RESP 21; TEMP 36.5; O2SAT 98
--- OUTSIDE RECORDS SUMMARY | 2024-06-22 20:37 | XMS_ITS | Clinical Summary ---
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 Name Role Phone Unavailable Primary Care Provider Unavailabl e Social History Tobacco Use Types Packs/Day Years Used Date Smoking Tobacco: Never Assessed Comments Unknown Sex and Gender Information Value Date Recorded Sex Assigned at Female 02/18/2022 10:29 AM EDT Legal Sex Female 10:29 AM EDT Gender Identity Not on file Sexual Orientation Not on file Plan of Treatment Health Maintenance Due Date Last Done Comments Depression Screening 1989 Alcohol/Substance Use Screening 2001 Tobacco Screening 2001 Family Planning (PISQ) 2004 DTaP/Tdap/Td Vaccines (1 - Tdap) 2008 Hepatitis B Vaccines (1 of 3 - 19+ 3-dose series) 2008 Pap Smear 2010 Cervical Cancer Screening 07/29/2019 HPV/Cotest 07/29/2019 COVID-19 Vaccine (1 - 2023-2 5 season) 2023 Influenza Vaccine (#1) 2023 Zoster Vaccines (1 of 2) 07/29/2039 RSV Patients and Pa tients Aged 60 years or older (1 - 1-dose 75+ series) 2064 HIB Vaccines Aged Out No longer eligi ble based on patient's age to complete this topic HPV Vaccines Aged Out No longer eligi ble based on patient's age to complete this topic Hepatitis A Vaccines Aged Out No long er eligible based on patient's age to complete this topic IPV Vaccines Aged Out No longer eligi ble based on patient's age to complete this topic Meningococcal Vaccine Aged Out No gary melva eligible based on patient's age to complete this topic Pneumococcal Vaccine: Pediat rics (0 to 5 Years) and At-Risk Patients (6 to 49) Years) Aged Out No longer eligible b ased on patient's age to complete this topic RSV under 20 months Aged Out No longe r eligible based on patient's age to complete this topic Rotavirus Vaccines Aged Out No longer eligible based on patient's age to complete this topic
--- OUTSIDE RECORDS SUMMARY | 2024-06-22 20:37 | XMS_ITS | Encounter Summary ---
Author Organization [facility] [employer] [facility] Address [address] [facility] 7[address] [place] [address] Care Team Providers Care Coal And Ash Supervisor Name Role Phone Unavailable Primary Care Provider Unavailabl e Encounter Details Date Type Department Care Team (Latest Contact Info) Description 09/18/2018 Abstract [facility] CONVERSIONS Dental, Provider, DDS Social History Tobacco Use Types Packs/Day Years Used Date Smoking Tobacco: Never Assessed Comments Unknown Sex and Gender Information Value Date Recorded Sex Assigned at Female 02/18/2022 10:29 AM EDT Legal Sex Female 10:29 AM EDT Gender Identity Not on file Sexual Orientation Not on file documented as of this encounter Plan of Treatment Not on file documented as of this encounter Visit Diagnoses Not on filedocumented in this encounter
[2024-06-22 21:50] VITALS: BP 93/52; PULSE 82; RESP 18; TEMP 36.4; O2SAT 97
--- NOTE | 2024-06-22 22:01 | PC.NURSE ---
per provider vital calixto not need to be done every 15mins, pt cleared for stroke.
--- NOTE | 2024-06-22 22:46 | PC.NURSE ---
Reviewed discharge instructions with pt, pt verbalized understanding, no sign of distress.
[2024-06-23 08:14] LABS: INR Whole Blood 0.9 (0.9-1.1)
== END 2024-06-22 22:46 | disposition home or self-care (01) ==
PROVIDERS: Physician Assistant Medical; Emergency Provider Emergency Medicine Emergency Medical Services; PCP Internal Medicine
DX: R68.84 Jaw pain (principal); R51.9 Headache, unspecified; R53.1 Weakness; M54.2 Cervicalgia; Z79.899 Other long term (current) drug therapy; Z51.81 Encounter for therapeutic drug level monitoring
CPT/HCPCS: 36415; 70450; 70496; 70498; 80048; 80061; 82947; 84484; 85025; 85610; 85730; 93005; 96374; 96375; 99284; 99285; J1200; J1885; J2765; Q9967

== ENCOUNTER → 2024-06-22 18:53 | Outpatient (BNV) | payer OTHER, SELFPAY | PROVIDERS: Emergency Provider Emergency Medicine Emergency Medical Services; Visit Provider Student in an Organized Health Care Education/Training Program | DX: I63.9 Cerebral infarction, unspecified (principal); R53.1 Weakness | CPT/HCPCS: 70450; 70496; 70498 ==

== ENCOUNTER → 2024-06-22 18:53 | Outpatient (BNV) | payer OTHER, SELFPAY | PROVIDERS: Emergency Provider Emergency Medicine Emergency Medical Services; PCP Internal Medicine; Visit Provider Internal Medicine Cardiovascular Disease | DX: I63.9 Cerebral infarction, unspecified (principal) | CPT/HCPCS: 93010 ==

== ENCOUNTER 2024-06-29 06:12 | Outpatient (REF) | payer OTHER, SELFPAY ==
--- OUTSIDE RECORDS SUMMARY | 2024-06-29 06:14 | XMS_ITS | Encounter Summary ---
Author Organization [facility] [employer] [facility] Address [address] [facility] [address] [place] [address] Care Team Providers Care Ekg Monitor Name Role Phone Unavailable Primary Care Provider [...]
--- OUTSIDE RECORDS SUMMARY | 2024-06-29 06:14 | XMS_ITS | Clinical Summary ---
Author Organization [employer] Address [address] [facility] [address] [place] [address] Care Team Providers Care Medical Affairs Director Name Role Phone Unavailable Primary Care Provider [...]
[2024-06-29 07:48] LABS: Alanine Aminotransferase 27 U/L (0-31); Anion Gap 12 (12-20); Aspartate Amino Transferase 32 U/L (5-31); Blood Urea Nitrogen 10 mg/dL (9-16); Calcium 9.4 mg/dL (8.4-10.2); Carbon Dioxide 25 mmol/L (22-29); Chloride 108 mmol/L (96-108); Cholesterol 129 mg/dL (<200); Estimated Glomerular Filt Rate > 60; Glucose Fasting 153 mg/dL (60-99); HDL Cholesterol 40 mg/dL (>40); LDL Cholesterol Calculated 69 mg/dL (<100); Sodium 141 mmol/L (135-145); Triglycerides 101 mg/dL (<150)
[2024-06-29 08:03] LABS: Estimated Average Glucose 146 mg/dL; Hemoglobin A1c % 6.7 % (<6.0)
[2024-06-29 08:47] LABS: Creatinine Urine 114.24 mg/dL; Microalbum/Creatinine Ratio Ur 14.8 ug/mg cr (<30)
== END 2024-06-29 06:13 | disposition home or self-care (01) ==
LOC: HO.LAB 06:12
PROVIDERS: PCP Internal Medicine; Visit Provider Internal Medicine
DX: Z00.01 Encounter for general adult medical examination with abnormal findings (principal); E11.29 Type 2 diabetes mellitus with other diabetic kidney complication; R80.9 Proteinuria, unspecified; E66.01 Morbid (severe) obesity due to excess calories; Z68.39 Body mass index [BMI] 39.0-39.9, adult; E78.5 Hyperlipidemia, unspecified; Z71.89 Other specified counseling; Z71.3 Dietary counseling and surveillance
CPT/HCPCS: 36415; 80048; 80061; 82043; 82570; 83036; 84450; 84460; 96127

== ENCOUNTER 2024-06-29 08:07 | Outpatient (AMB) | payer OTHER, SELFPAY ==
--- NOTE | 2024-06-29 08:18 | MHC.PC.OV ---
Vital Signs 06/29/24 08:19 Height 5 ft 2 in Weight 205 lb BMI 37.5 BP 90/62 Blood Pressure Location Lt brachial Position Sitting Respiration 16 Pulse 86 Pulse Source Pulse Oximeter Temp 98.1 F Temp Source Oral Pulse Oximetry (%) 98 Oxygen Delivery Method Room Air Intake Visit Reasons: PE Intake Note: Pt is here today for her PE: last papsmear 01/23/24 Is last menstrual period known: Yes Last menstrual period: 06/22/24 Allergies lisinopril Adverse Reaction (Verified 06/29/24 09:25) Cough Medication List - Last Reconciled 06/29/24 by Alberta Rosales MD atorvastatin 10 mg PO DAILY cholecalciferol (vitamin D3) 50 mcg PO DAILY losartan 25 mg PO DAILY metformin 1,000 mg PO BIDWMEAL 3 months Ozempic (semaglutide) 0.25 mg (0.368 mL) subcut QWEEK 1 month NS pyridoxine (vitamin B6) 100 mg PO DAILY 90 days Tobacco use date assessed: 06/29/24 Dental Screening Dental Screen Date: 06/29/24 Did you have a dental visit in the last 12 months?: Yes Did you have a dental problem in the last 6 months where you did not have access to dental care?: Yes Was dental information given to patient?: Patient has dentist HPI PE HPI Details 33-year-old lady with diabetes mellitus, hyperlipidemia, hypertension, here today for her physical exam. She is up-to-date with his cervical cancer screening, last done 01/23/24 with benign findings. She has been compliant with taking her medications except for Jardiance which she stopped taking due to development of frequent yeast infection while on medication. She is still taking metformin a 1000 mg 1 tablet twice a day, with hemoglobin today at 6.7% and with negative urine for microalbuminuria. [facility] Medical History Vitamin D deficiency Cough due to SINDHU inhibitor Right nephrolithiasis Ureterolithiasis Diabetes mellitus with microalbuminuria, without long-term current use of insulin Obesity Dyslipidemia Surgical History History of tubal ligation History of laparoscopic appendectomy Family History Father Unknown family medical history Mother Diabetes mellitus Sister No problems noted. Son No problems noted. Daughter No problems noted. 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 1. Little interest or pleasure in doing things: not at all 2. Feeling down, depressed, or hopeless: not at all 3. Trouble falling or staying asleep, or sleeping too much: not at all 4. Feeling tired or having little energy: not at all 5. Poor appetite or overeating: not at all 6. Feeling bad about yourself - or that you are a failure or have let yourself or your family down: not at all 7. Trouble concentrating on things, such as reading the newspaper or watching television: not at all 8. Moving or speaking so slowly that other people could have noticed. Or the opposite - being so fidgety or restless that you have been moving around a lot more than usual: not at all 9. Thoughts that you would be better off or of hurting yourself in some way: not at all Total score: 0 Depression Screening Interpretation: Negative Depression Screening Done: Yes 79747 - PHQ-9 Billing: Yes Source: Developed by Drs. Juan Baker, Yessica Lam, Lexa Sheriff and colleagues, with an educational agnieszka from [employer]. Thrive Questionnaire Date Thrive assessed: 06/29/24 I am a: Patient What is your living situation today?: I have a steady place to live Within the past 12 months, did the food you bought not last and you didn't have the money to get more?: Never true Within the past 12 months, did you worry whether your food would run out before you got money to buy more?: Never true Do you have trouble paying for medicines?: No Do you have trouble getting transportation to medical appointments?: No Do you have trouble paying your heating and electricity bill?: No Do you have trouble taking care of your child, family member or friend?: No Do you have trouble with day-to-day activities such as bathing, preparing meals, shopping, managing finances, etc.?: No Are you currently unemployed and looking for a job?: No Are you interested in more education?: Yes Please select the resources that you would like help with: None Currently or been in a relationship where the following occur: No concerns reported THRIVE Score: 0 AUDIT C Alcohol Use Questionnaire (AUDIT-C) 1. How often do you have a drink containing alcohol?: Never Total Score: 0 ANDRESSA-7 AMB Questionnaire ANDRESSA-7 Date ANDRESSA - 7 assessed: 06/29/24 Feeling nervous, anxious, or on edge: 0 = Not at all Not being able to stop or control worryin = Not at all Worrying too much about different things: 0 = Not at all Trouble relaxin = Not at all Being so restless that it is hard to sit still: 0 = Not at all Becoming easily annoyed or irritable: 0 = Not at all Feeling afraid as if something awful might happen: 0 = Not at all Total ANDRESSA-7 score (0-4 normal; 5-9 mild; 10-14 moderate; 15-21 severe): 0 Source: Developed by Drs. Juan Baker, Yessica Lam, Lexa Sheriff and colleagues, with an educational agnieszka from [employer]. ANDRESSA-7 Assessment Billing ANDRESSA-7 Assessment Tool: ANDRESSA-7 Assessment 70978 Review of Systems Const All systems reviewed & are unremarkable except as noted in HPI and below Reports no additional complaints Eyes Reports no additional complaints ENT Reports as per HPI Card Reports no additional complaints Resp Reports no additional complaints GI Reports as per HPI and Reports no additional complaints Reports as per HPI Musc Reports no additional complaints Skin/Breast Reports as per HPI Neuro Reports no additional complaints Psych Reports no additional complaints Endo Reports no additional complaints Walter/Lymph Reports no additional complaints Aller/Immun Reports no additional complaints Physical exam (Primary Care) Vital Signs: Last Vital Signs Temp 98.1 F 06/29/24 08:19 Pulse 86 06/29/24 08:19 Resp 16 06/29/24 08:19 BP 90/62 06/29/24 08:19 Pulse Ox 98 06/29/24 08:19 Oxygen Delivery Method Room Air 06/29/24 08:19 BMI result Body Mass Index 37.5 Tobacco/Smoking Status: Tobacco use Status Tobacco use date assessed 06/29/24 06/29/24 08:23 Patient Tobacco Use Status Never used Tobacco 06/29/24 08:23 e-Cigarette/Vaping Use Never Used 06/29/24 08:23 PHQ-9: PHQ-9 Score PHQ-9: Total score 0 06/29/24 09:29 Depression Screening Interpretation: Negative Thrive Assessment: Date of Thrive Assessment Date Thrive assessed 06/29/24 06/29/24 08:23 Currently or been in a relationship where the following occur: No concerns reported Advance Care Planning discussion: Completed/Scanned Date of discussion: 06/29/24 Who was present: Patient Forms completed: Health Care Proxy Time spent: 16-45 minutes Actual minutes spent: 3 Const General: no acute distress and alert Orientation/consciousness: patient oriented x3 HENMT Head: Yes normocephalic Ears: external ears normal General nose exam: Normal external nose present and No nasal discharge present Mouth: Normal oral and palatal mucosa present and moist mucous membranes Throat: Yes posterior oropharynx abnormal (Erythematous swollen tonsils bilateral) Eyes General: appearance normal, both eyes and all related structures Neck Neck: Yes full ROM, Yes no lymphadenopathy and Yes supple Chest Chest palpation & inspection: normal inspection of the chest Breast/axilla inspection: normal inspection of the breasts Breast/axilla palpation: normal palpation of the breasts Resp Effort & Inspection: normal respiratory effort and able to speak in complete sentences Auscultation: clear to auscultation bilaterally Cardio Rate: regular rate Rhythm: regular rhythm Heart sounds: S1 normal heart sound present and S2 normal heart sound present GI Inspection: Yes obesity and Yes other (striae present) Palpation (GI): Soft to palpation, nontender and no masses Auscultation: normal bowel sounds General: Yes no CVA tenderness and Yes deferred (Sees [facility]) Back/Spine/Pelvis Back: no CVA tenderness and No back tenderness Skin General skin exam: no rashes or lesions noted Neuro General: patient oriented x3, gait normal, tone normal, moves all extremities, Normal light touch and pain sensation and no focal motor deficits Cranial nerves: Yes CN's II-XII intact bilaterally Cognition (Neuro): normal cognition Extrem General: Yes full ROM, Yes no joint enlargement, Yes no clubbing, cyanosis or edema and Yes no calf tenderness Psych Appearance: grossly normal Mental Status: mental status grossly normal Speech and movement: Normal speech and movement present Affect: normal affect Results Reviewed Results Reviewed: Name: Arnold Mayorga Age/Sex: 33/F : 1990 Unit#: [id number] Attend Dr: Jeison Conway MD Re06/22/24 Status: DEP ER Location: [facility] Disch: SPEC : [id number] MARY: 06/22/24 STATUS: COMP REQ : [id number] RECD: 06/22/[address]: Mere Kaur COMP: 06/22/24 ENTERED: 06/22/[address] [facility] [address]: Physician,Unknown ORDERED: CBC Auto Diff Test Result Flag Reference WBC 8.2 4.8-10.8 X10*3/uL RBC 4.49 4.20-5.50 X10*6/uL HGB 12.9 12.0-16.0 g/dl HCT 36.9 L 37.0-47.0 % MCV 82.2 80.0-98.0 fL MCH 28.7 27.0-33.0 pg MCHC 35.0 31.0-35.0 g/dl RDW 13.6 11.0-16.0 % PLT 282 # 160-400 X10*3/uL MPV 9.2 L 9.4-12.3 fL Neut Pct Auto 48.2 45-73 % ImGran Pct Auto 0.5 H 0.0-0.4 % Lymp Pct Auto 42.3 H 20-40 % [place] Pct Auto 6.7 2-11 % Eos Pct Auto 1.8 0-4 % Baso Pct Auto 0.5 0-2 % NRBC Pct Auto 0.0 0.0-0.2 /100WBC ANC Neut Abs # 4.0 2.0-8.3 x10*3/uL ImGran Abs Auto 0.04 H 0.00-0.03 X10*3/uL Lymph Abs Auto 3.5 1.2-4.9 X10*3/uL [place] Abs Auto 0.6 0.1-1.2 X10*3/uL Eos Abs Auto 0.2 0.0-0.4 X10*3/uL Baso Abs Auto 0.0 0.0-0.2 X10*3/uL NRBC Abs Auto 0.000 0.0-0.012 X10*3/uL radha: Arnold Mayorga Age/Sex: 33/F : 1990 Unit#: [id number] Attend Dr: Alberta Rosales MD Re06/29/24 Status: REG RE[facility] Disch: SPEC : [id number] MARY: 06/29/24 STATUS: COMP REQ : [id number] RECD: 06/29/[address]: Alberta Rosales MD COMP: 06/29/24 ENTERED: 06/29/[address]: ORDERED: Met Prof Fast, AST, ALT, Lipid Panel Test Result Flag Reference Sodium 141 135-145 mmol/L Potassium 4.0 3.3-5.1 mmol/L CL 108 96-108 mmol/L CO2 25 22-29 mmol/L Gap 12 12-20 BUN 10 9-16 mg/dL Creat 0.67 0.5-1.4 mg/dL eGFR > 60 Chronic Kidney Disease: Estimated GFR < 60 mL/min/1.73m2 Severe Kidney Disease: Estimated GFR < 15 mL/min/1.73m2 FBS 153 H 60-99 mg/dL A fasting glucose of 126 mg/dl or greater on more than one occasion is considered diagnostic of diabetes. CA 9.4 8.4-10.2 mg/dL AST (GOT) 32 H 5-31 U/L ALT (GPT) 27 0-31 U/L Triglyceride 101 <150 mg/dL Desirable Triglyceride: less than 150 mg/dL Borderline High Triglyceride 150-199 mg/dL High Triglyceride: 200-499 mg/dL Very High Triglyceride: greater than or equal to 5OO mg/dL Cholesterol 129 <200 mg/dL Desirable Cholesterol: less than 200 mg/dL Borderline High Cholesterol: 200-239 mg/dL High Cholesterol: greater than 239 mg/dL LDL Calculated 69 <100 mg/dL Desirable LDL: less than 100 mg/dL Near Optimal/Above Optimal LDL: 110-129 mg/dL Borderline High LDL: 130-159 mg/dL High LDL: 160-189 mg/dL Very High LDL: greater than or equal to 190 mg/dL HDL 40 L >40 mg/dL Desirable HDL: greater than 40 mg/dL Note: This HDL assay may give artificially low results in patients with liver disease. Laboratory Tests 06/29/24 06:25 Estimat Average Glucose 146 Hemoglobin A1c % 6.7 H Urine Creatinine 114.24 Urine Microalbumin 17.0 Microalb/Creat Ratio 14.8 Coding Level of Care Code Est Pt Prev Care 18-39y(88330) Diagnoses Annual visit for general adult medical examination with abnormal findings Z00. Dyslipidemia E78.5 Class 2 severe obesity due to excess calories with serious comorbidity and body mass index (BMI) of 39.0 to 39.9 in adult E66.01; Z68.39 Body mass index: BMI 39.0-39.9 Obesity classification: adult class 2 (BMI 35 - 39.9) Obesity type: due to excess calories Serious obesity comorbidity presence: with serious comorbidity Diabetes mellitus with microalbuminuria, without long-term current use of insulin E11.29; R80.9 Advanced directives, counseling/discussion Z71.89 Additional Codes ANDRESSA-7 Assessment Billing - ANDRESSA-7 Assessment Tool: ANDRESSA-7 Assessment 96491 ([id number]) PHQ-9 - 63933 - PHQ-9 Billing: Yes ([id number]) Vital Signs *Quality* - Advance Care Planning discussion: Completed/Scanned ([id number]) Vital Signs *Quality* - Time spent: 16-45 minutes ([id number]) Assessment & Plan Assessment & Plan (1) Annual visit for general adult medical examination with abnormal findings: Code(s): Z00.01 - Encounter for general adult medical examination with abnormal findings Plan: Discuss results of recent fasting lab with patient. Continue with regular dental visit every 6 months and yearly eye exams for retinopathy screening. Take adequate calcium in diet and vitamin-D 3 at 2000 IU per cap once a day, in addition to weight-bearing exercises to help maintain good muscle tone and weight control. Instructed to do self-breast exam, and recommended to get yearly mammogram, starting at age 40. Up-to-date with her vaccinations (2) Dyslipidemia: Code(s): E78.5 - Hyperlipidemia, unspecified Category: Medical Plan: Latest fasting lipids are within normal limits, continue on atorvastatin 10 mg daily. (3) Obesity: Code(s): E66.9 - Obesity, unspecified Category: Medical Qualifiers: Body mass index: BMI 39.0-39.9 Obesity classification: adult class 2 (BMI 35 - 39.9) Obesity type: due to excess calories Serious obesity comorbidity presence: with serious comorbidity Qualified Code(s): E66.01 - Morbid (severe) obesity due to excess calories; Z68.39 - Body mass index [BMI] 39.0-39.9, adult Plan: Discussed need to increase activity and weight reduction. Recommended focusing on improving health instead of dieting. Mediterranean diet is a healthy diet that helps, limit food high in fat, sugar, and calories. Eat slowly, pay attention to portion sizes, plan your meals ahead of time, start regular physical activity, at least 150 minutes of moderate intensity exercise, or 90 minutes per week of vigorous exercise. (4) Diabetes mellitus with microalbuminuria, without long-term current use of insulin: Code(s): E11.29 - Type 2 diabetes mellitus with other diabetic kidney complication; R80.9 - Proteinuria, unspecified Category: Medical Plan: Hemoglobin A1c today is at 6.7% currently only taking metformin a 1000 mg 1 tablet twice a day. Will add does Ozempic 0.25 mg injected subcutaneously once a week. Discussed possible side effects of the medication, advised to have a bland diet on a day that she gives herself her Ozempic dose help offset any nausea or abdominal cramping that might ensue. Will see her back for follow-up in August 2024 after fasting labs done (5) Advanced directives, counseling/discussion: Code(s): Z71.89 - Other specified counseling Plan: Initiated the conversation about Advanced Directives. Advanced Directives help patients prepare for current and future decisions about their medical treatment and place of care. Discussed with patient that it is a process where a patients current condition and prognosis are reviewed, their wishes for information regarding their illness are elicited, and likely medical dilemmas are presented and options discussed. Healthcare proxy form completed today. The form can be amended as needed, reviewed yearly and make changes as needed Orders: Orders Hemoglobin A1c 09/04/24 - Type 2 diabetes mellitus with other diabetic kidney complication, E66.01 - Morbid (severe) obesity due to excess calories, E78.5 - Hyperlipidemia, unspecified, R80.9 - Proteinuria, unspecified, Z68.39 - Body mass index [BMI] 39.0-39.9, adult Lipid Panel 09/04/24 - Type 2 diabetes mellitus with other diabetic kidney complication, E66.01 - Morbid (severe) obesity due to excess calories, E78.5 - Hyperlipidemia, unspecified, R80.9 - Proteinuria, unspecified, Z68.39 - Body mass index [BMI] 39.0-39.9, adult Basic Metabolic Panel Fasting 09/04/24 - Type 2 diabetes mellitus with other diabetic kidney complication, E66.01 - Morbid (severe) obesity due to excess calories, E78.5 - Hyperlipidemia, unspecified, R80.9 - Proteinuria, unspecified, Z68.39 - Body mass index [BMI] 39.0-39.9, adult Alanine Aminotransferase 09/04/24 - Type 2 diabetes mellitus with other diabetic kidney complication, E66.01 - Morbid (severe) obesity due to excess calories, E78.5 - Hyperlipidemia, unspecified, R80.9 - Proteinuria, unspecified, Z68.39 - Body mass index [BMI] 39.0-39.9, adult Aspartate Amino Transferase 09/04/24 - Type 2 diabetes mellitus with other diabetic kidney complication, E66.01 - Morbid (severe) obesity due to excess calories, E78.5 - Hyperlipidemia, unspecified, R80.9 - Proteinuria, unspecified, Z68.39 - Body mass index [BMI] 39.0-39.9, adult Medications: New Ozempic (semaglutide) for 4 weeks 0.25 mg (0.368 mL) subcut QWEEK 1 month 3 mL 3RF NS
[2024-06-29 08:19] VITALS: BP 90/62; PULSE 86; RESP 16; TEMP 36.7; O2SAT 98; BMI 37.5
--- OUTSIDE RECORDS SUMMARY | 2024-06-29 08:35 | XMS_ITS | Encounter Summary ---
Author Organization [facility] [employer] [facility] Address [address] [facility] [address] [place] [address] Care Team Providers Care Seafood Manager Name Role Phone Unavailable Primary Care Provider [...]
--- OUTSIDE RECORDS SUMMARY | 2024-06-29 08:35 | XMS_ITS | Clinical Summary ---
Author Organization [employer] Address [address] [facility] [address] [place] [address] Care Team Providers Care Building Maintenance Technician Name Role Phone Unavailable Primary Care Provider [...]
== END 2024-06-29 09:26 | disposition home or self-care (01) ==
PROVIDERS: PCP Internal Medicine; Visit Provider Internal Medicine
DX: Z00.01 Encounter for general adult medical examination with abnormal findings (principal); E78.5 Hyperlipidemia, unspecified; E66.01 Morbid (severe) obesity due to excess calories; Z68.39 Body mass index [BMI] 39.0-39.9, adult; E11.29 Type 2 diabetes mellitus with other diabetic kidney complication; R80.9 Proteinuria, unspecified; Z71.89 Other specified counseling; Z00.00 Encounter for general adult medical examination without abnormal findings

== ENCOUNTER 2024-09-14 07:28 | Outpatient (REF) | payer OTHER, SELFPAY ==
[2024-09-14 10:22] LABS: Estimated Average Glucose 137 mg/dL; Hemoglobin A1c % 6.4 % (<6.0)
[2024-09-14 10:32] LABS: Alanine Aminotransferase 32 U/L (0-31); Anion Gap 10 (12-20); Aspartate Amino Transferase 28 U/L (5-31); Blood Urea Nitrogen 10 mg/dL (9-16); Carbon Dioxide 23 mmol/L (22-29); Chloride 110 mmol/L (96-108); Cholesterol 118 mg/dL (<200); Estimated Glomerular Filt Rate > 60; Glucose Fasting 146 mg/dL (60-99); HDL Cholesterol 36 mg/dL (>40); LDL Cholesterol Calculated 58 mg/dL (<100); Sodium 139 mmol/L (135-145); Triglycerides 121 mg/dL (<150)
== END 2024-09-14 07:29 | disposition home or self-care (01) ==
LOC: HO.HMGCLDS 07:28
PROVIDERS: PCP Internal Medicine; Visit Provider Internal Medicine
DX: E11.29 Type 2 diabetes mellitus with other diabetic kidney complication (principal); R80.9 Proteinuria, unspecified; E66.01 Morbid (severe) obesity due to excess calories; Z68.39 Body mass index [BMI] 39.0-39.9, adult; E78.5 Hyperlipidemia, unspecified
CPT/HCPCS: 36415; 80048; 80061; 83036; 84450; 84460

== ENCOUNTER 2024-09-21 08:31 | Outpatient (AMB) | payer OTHER, SELFPAY ==
--- NOTE | 2024-09-21 08:29 | A.OFFPC_ITS ---
Intake Visit Reasons: f/u labs Iphone Intake Note: Pt is having a telehealth visit to f/u lab results Allergies lisinopril Adverse Reaction (Verified 09/21/24 08:45) Cough Medication List - Last Reconciled 09/21/24 by Alberta Rosales MD atorvastatin 10 mg PO DAILY cholecalciferol (vitamin D3) 50 mcg PO DAILY losartan 25 mg PO DAILY metformin 1,000 mg PO BIDWMEAL 3 months Ozempic (semaglutide) 0.25 mg (0.368 mL) subcut QWEEK 1 month NS pyridoxine (vitamin B6) 100 mg PO DAILY 90 days Tobacco use date assessed: 09/21/24 Dental Screening Dental Screen Date: 09/21/24 Did you have a dental visit in the last 12 months?: Yes Did you have a dental problem in the last 6 months where you did not have access to dental care?: Yes Was dental information given to patient?: Patient has dentist HPI f/u labs Iphone HPI Details 34-year-old lady with diabetes mellitus, hyperlipidemia, and obesity, here today for follow-up. Started on Ozempic 2.25 mg injected subcutaneously once a week on last visit to be taken together with metformin 1000 mg 1 tablet twice a day and continue on atorvastatin 10 mg daily. Patient report improvement in her diabetes control with fasting glucose levels falling within n ormal limits now. Had some headache the day of an after injection of Ozempic for the 1st couple of weeks now has resolved. Patient also noticed some occasional constipation since starting Ozempic but now is better once she started drinking more water. Hemoglobin A1c now is down to 6.4% and fasting lipids are within normal limits. Patient however states that her appetite still about the same, decreases i during the 1st couple of days after starting Ozempic but then goes back to normal. Has not notice any weight loss since starting the medication. COUNT INCLUDES THE [facility] Medical History Vitamin D deficiency Cough due to SINDHU inhibitor Right nephrolithiasis Ureterolithiasis Diabetes mellitus with microalbuminuria, without long-term current use of insulin Obesity Dyslipidemia Surgical History History of tubal ligation History of laparoscopic appendectomy Family History Father Unknown family medical history Mother Diabetes mellitus Sister No problems noted. Son No problems noted. Daughter No problems noted. 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 needs: No Hearing needs: No Vision needs: Yes Questionnaire Thrive Questionnaire Date Thrive assessed: 06/29/24 I am a: Patient What is your living situation today?: I have a steady place to live Within the past 12 months, did the food you bought not last and you didn't have the money to get more?: Never true Within the past 12 months, did you worry whether your food would run out before you got money to buy more?: Never true Do you have trouble paying for medicines?: No Do you have trouble getting transportation to medical appointments?: No Do you have trouble paying your heating and electricity bill?: No Do you have trouble taking care of your child, family member or friend?: No Do you have trouble with day-to-day activities such as bathing, preparing meals, shopping, managing finances, etc.?: No Are you currently unemployed and looking for a job?: No Are you interested in more education?: Yes Please select the resources that you would like help with: None Currently or been in a relationship where the following occur: No concerns reported THRIVE Score: 0 AUDIT C Alcohol Use Questionnaire (AUDIT-C) 3. How often do you have six or more drinks on one occasion?: Never Total Score: 0 ANDRESSA-7 AMB Questionnaire ANDRESSA-7 Date ANDRESSA - 7 assessed: 06/29/24 Source: Developed by Drs. Juan Baker, Yessica Lam, Lexa Sheriff and colleagues, with an educational agnieszka from [employer]. Review of Systems Const Reports no additional complaints Eyes Reports no additional complaints ENT Reports as per HPI Card Reports no additional complaints Resp Reports no additional complaints GI Reports as per HPI Reports as per HPI Musc Reports no additional complaints Skin/Breast Reports as per HPI Neuro Reports as per HPI Psych Reports no additional complaints Endo Reports no additional complaints Walter/Lymph Reports no additional complaints Aller/Immun Reports no additional complaints Physical exam (Primary Care) Tobacco/Smoking Status: Tobacco use Status Tobacco use date assessed 09/21/24 09/21/24 08:30 Patient Tobacco Use Status Never used Tobacco 09/21/24 08:30 e-Cigarette/Vaping Use Never Used 09/21/24 08:30 Thrive Assessment: Date of Thrive Assessment Date Thrive assessed 06/29/24 09/21/24 08:30 Currently or been in a relationship where the following occur: No concerns reported Telehealth Telehealth Telehealth Platform: [employer] Location of provider rendering services: practice address Location of patient: address on file Patient Identification confirmed using: Name, : Yes Telehealth method: video Patient verbally consented to treatment: Yes Patient verbally consented to billing insurance company: Yes Patient informed of any privacy concerns related to visit: Yes Minutes spent on Phone/Video with Pt.: 20 Results Reviewed Results Reviewed: Laboratory Tests 09/14/24 07:31 Estimat Average Glucose 137 Hemoglobin A1c % 6.4 H Name: Arnold Mayorga Age/Sex: 34/F : 1990 Unit#: [id number] Attend Dr: Alberta Rosales MD Re09/14/24 Status: DEP REF Location: [facility] Disch: SPEC : [id number] MARY: 09/14/24 STATUS: COMP REQ : [id number] RECD: 09/14/[address]: Alberta Rosales MD COMP: 09/14/24 ENTERED: 09/14/[address]: ORDERED: Met Prof Fast, AST, ALT, Lipid Panel Test Result Flag Reference Sodium 139 135-145 mmol/L Potassium 4.0 3.3-5.1 mmol/L CL 110 H 96-108 mmol/L CO2 23 22-29 mmol/L Gap 10 L 12-20 BUN 10 9-16 mg/dL Creat 0.51 0.5-1.4 mg/dL eGFR > 60 Chronic Kidney Disease: Estimated GFR < 60 mL/min/1.73m2 Severe Kidney Disease: Estimated GFR < 15 mL/min/1.73m2 FBS 146 H 60-99 mg/dL A fasting glucose of 126 mg/dl or greater on more than one occasion is considered diagnostic of diabetes. CA 9.0 8.4-10.2 mg/dL AST (GOT) 28 5-31 U/L ALT (GPT) 32 H 0-31 U/L Triglyceride 121 <150 mg/dL Desirable Triglyceride: less than 150 mg/dL Borderline High Triglyceride 150-199 mg/dL High Triglyceride: 200-499 mg/dL Very High Triglyceride: greater than or equal to 5OO mg/dL Cholesterol 118 <200 mg/dL Desirable Cholesterol: less than 200 mg/dL Borderline High Cholesterol: 200-239 mg/dL High Cholesterol: greater than 239 mg/dL LDL Calculated 58 <100 mg/dL Desirable LDL: less than 100 mg/dL Near Optimal/Above Optimal LDL: 110-129 mg/dL Borderline High LDL: 130-159 mg/dL High LDL: 160-189 mg/dL Very High LDL: greater than or equal to 190 mg/dL HDL 36 L >40 mg/dL Desirable HDL: greater than 40 mg/dL Note: This HDL assay may give artificially low results in patients with liver disease. Coding Level of Care Code Est Pt Level 4 (08892) Complex EM visit Add On G2211 Diagnoses Dyslipidemia E78.5 Class 2 severe obesity due to excess calories with serious comorbidity and body mass index (BMI) of 39.0 to 39.9 in adult E66.01; Z68.39 Body mass index: BMI 39.0-39.9 Obesity classification: adult class 2 (BMI 35 - 39.9) Obesity type: due to excess calories Serious obesity comorbidity presence: with serious comorbidity Diabetes mellitus with microalbuminuria, without long-term current use of insulin E11.29; R80.9 Assessment & Plan Assessment & Plan (1) Dyslipidemia: Code(s): E78.5 - Hyperlipidemia, unspecified Category: Medical Plan: Fasting lipid levels are at goal. Continue atorvastatin 10 mg once a day. Reinforced importance of following a low-cholesterol diet and getting regular exercise. (2) Obesity: Code(s): E66.9 - Obesity, unspecified Category: Medical Qualifiers: Body mass index: BMI 39.0-39.9 Obesity classification: adult class 2 (BMI 35 - 39.9) Obesity type: due to excess calories Serious obesity comorbidity presence: with serious comorbidity Qualified Code(s): E66.01 - Morbid (severe) obesity due to excess calories; Z68.39 - Body mass index [BMI] 39.0-39.9, adult Plan: Increase Ozempic dose 2.5 mg injected subcutaneously once a week. Continue with adherence to healthy eating habits and regular exercise (3) Diabetes mellitus with microalbuminuria, without long-term current use of insulin: Code(s): E11.29 - Type 2 diabetes mellitus with other diabetic kidney complication; R80.9 - Proteinuria, unspecified Category: Medical Plan: Ozempic dose increased to 0.5 mg injected subcutaneously once a week. Continue metformin at the same dose. Will see her back for follow-up in 3 months after fasting labs done. Orders: Orders Aspartate Amino Transferase 12/25/24 E11.29 - Type 2 diabetes mellitus with other diabetic kidney complication, E66.01 - Morbid (severe) obesity due to excess calories, E78.5 - Hyperlipidemia, unspecified, R80.9 - Proteinuria, unspecified, Z68.39 - Body mass index [BMI] 39.0-39.9, adult Hemoglobin A1c 12/25/24 E11.29 - Type 2 diabetes mellitus with other diabetic kidney complication, E66.01 - Morbid (severe) obesity due to excess calories, E78.5 - Hyperlipidemia, unspecified, R80.9 - Proteinuria, unspecified, Z68.39 - Body mass index [BMI] 39.0-39.9, adult Basic Metabolic Panel Fasting 12/25/24 E11.29 - Type 2 diabetes mellitus with other diabetic kidney complication, E66.01 - Morbid (severe) obesity due to excess calories, E78.5 - Hyperlipidemia, unspecified, R80.9 - Proteinuria, un specified, Z68.39 - Body mass index [BMI] 39.0-39.9, adult Alanine Aminotransferase 12/25/24 E11.29 - Type 2 diabetes mellitus with other diabetic kidney complication, E66.01 - Morbid (severe) obesity due to excess calories, E78.5 - Hyperlipidemia, unspecified, R80.9 - Proteinuria, unspecified, Z68.39 - Body mass index [BMI] 39.0-39.9, adult Lipid Panel 12/25/24 E11.29 - Type 2 diabetes mellitus with other diabetic kidney complication, E66.01 - Morbid (severe) obesity due to excess calories, E78.5 - Hyperlipidemia, unspecified, R80.9 - Proteinuria, unspecified, Z68.39 - Body mass index [BMI] 39.0-39.9, adult Medications: Changed From Ozempic (semaglutide) for 4 weeks 0.25 mg (0.368 mL) subcut QWEEK 1 month 3 mL 3RF NS E11.29 - Type 2 diabetes mellitus with other diabetic kidney complication, E66.01 - Morbid (severe) obesity due to excess calories, E78.5 - Hyperlipidemia, unspecified, R80.9 - Proteinuria, unspecified, Z68.39 - Body mass index [BMI] 39.0-39.9, adult To Ozempic (semaglutide) for 4 weeks 0.5 mg (0.736 mL) subcut QWEEK 1 month 3.68 mL 5RF NS E11.29 - Type 2 diabetes mellitus with other diabetic kidney complication, E66.01 - Morbid (severe) obesity due to excess calories, E78.5 - Hyperlipidemia, unspecified, R80.9 - Proteinuria, unspecified, Z68.39 - Body mass index [BMI] 39.0-39.9, adult Refilled atorvastatin 10 mg PO DAILY 90 tabs 4RF losartan 25 mg PO DAILY 90 tabs 4RF
--- OUTSIDE RECORDS SUMMARY | 2024-09-21 08:51 | XMS_ITS | Encounter Summary ---
Author Organization [facility] Address [address] [place] [address] 7 [place] [address] Care Team Providers Care Delicatessen Slicer Name Role Phone Unavailable Primary Care Provider Unavailabl e Encounter Details Date Type Department Care Team (Latest Contact Info) Description 09/18/2018 Abstract [facility] CONVERSIONS Dental, Provider, DDS Social History Tobacco [...]
== END 2024-09-21 09:06 | disposition home or self-care (01) ==
LOC: HO.HMCC 08:31
PROVIDERS: PCP Internal Medicine; Visit Provider Internal Medicine
DX: E78.5 Hyperlipidemia, unspecified (principal); E66.01 Morbid (severe) obesity due to excess calories; Z68.39 Body mass index [BMI] 39.0-39.9, adult; E11.29 Type 2 diabetes mellitus with other diabetic kidney complication; R80.9 Proteinuria, unspecified

== ENCOUNTER → 2024-09-21 08:31 | Outpatient (BNVA) | payer OTHER, SELFPAY | PROVIDERS: PCP Internal Medicine; Visit Provider Internal Medicine | DX: Z13.89 Encounter for screening for other disorder (principal) ==

== ENCOUNTER 2024-11-15 08:40 | Outpatient (REF) | payer OTHER, SELFPAY ==
--- NOTE | ~2024-11-15 | US_ITS ---
CLINICAL HISTORY: N20.0 - Calculus of kidney US Renal Comparison: US/SR - US KIDNEY BILATERAL - 06/03/23 08:24 EST Findings: Right kidney normal size and echotexture, 11.6 cm length. Left kidney normal size and echotexture, 11.9 cm length. 3 mm midpole calculus. No hydronephrosis of either kidney. Normal color Doppler. Urinary bladder is unremarkable. Prevoid volume 200 mL. Postvoid volume 12 mL. Bilateral ureteral jets are visualized. IMPRESSION: Nonobstructing 3 mm left-sided calculus. No significant postvoid residual. This document has been electronically signed by: Marino Allen MD on 11/15/2024 13:03:03
--- OUTSIDE RECORDS SUMMARY | 2024-11-15 09:04 | XMS_ITS | Encounter Summary ---
Author Organization 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
--- OUTSIDE RECORDS SUMMARY | 2024-11-15 09:04 | XMS_ITS | Clinical Summary ---
Author Organization [facility] Address [facility] [employer] [facility] [address] [place] [id number] Phone Care Team Providers Care Senior Treasury Consultant Name Role Phone Alberta Rosales MD Primary Care Provider Neena Blanton CNM Unavailable Allergies Active Allergy Reactions Criticality Noted Date Comments Lisinopril Cough Medium 10/16/2021 Medications acetaminophen (TYLENOL) 325 mg tablet Take 2 tablets (650 mg total) by mouth every 6 (six) hours as needed. 0 3 Active metFORMIN (GLUCOPHAGE) 500 MG tabletIndications :Type 2 diabetes mellitus without complication, without long-term current use of insulin Take 1 tablet (500 mg total) by mouth daily with dinner. 90 tablet 3 3 Active atorvastatin (LIPITOR) 10 MG tablet 2 (two) times a week. 3 Active losartan (COZAAR) 25 MG tablet Take 25 mg by mouth daily. 5 Active OZEMPIC 0.25 mg or 0.5 mg (2 mg/3 mL) subcutaneous injection pen Inject 0.25 mg under the skin every 7 days. 5 Active Active Problems Problem Noted Date Diagnosed Date Periumbilical abdominal pain 07/26/2024 Assessment & Plan (07/26/2024 2:17 PM EDT): Patient with intermittent mild to moderate periumbilical pain in the area of her post- tubal ligation performed 18 months ago Patient denies N/V, fever/chills, SOB/CP, vaginal itching/odor/discharge, abnormal uterine bleeding Pain is sudden in onset, sharp/pinching in quality, and tends to resolve spontaneously within a few minutes without intervention Operative note reviewed, procedure uncomplicated Benign abdominal exam Discussed with patient that as her pain is intermittent and resolves quickly and she is remote from surgery, likelihood of an acute issue is low Recommended NSAIDs/Tylenol, heat/ice as needed Warning signs/symptoms reviewed 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 We reviewed that labor induction is a slow process and can take time to produce effective contractions. Depending on a person's body the induction process can take 1-5 or more days. It is unclear whether or not induction increases the risk of . We discussed: Cervadil; cervadil is a prostaglandin that is embedded in a string. It is placed in the vagina for 12 hours to cause cervical softening or ripening. The advantages are that it is gentle, unless clinically indicated the patient does not need an IV or to be continuously monitored. It can also be removed if it causes too many contractions. The disadvantages are that sometimes it has minimal effects. Balloon: the advantages are that it can progress dilation to 4-5cm, is relatively gentle over the 12 hours, do not need an IV or to be continuously monitored. Disadvantages are that it can be crampy, uncomfortable during insertion, and even though may be 4-5cm, does not necessarily mean that labor will begin. Misoprostol: can be given orally or vaginally every 4+ hours. Advantages are that it is a prostaglandin and helpful with cervical ripening. Also would not need an IV. Disadvantages are that if it produces too frequent contractions, the medication cannot be turned off , therefore she would need to be monitored continuously and subsequent doses are administered according to strict criteria. Pitocin: Is administered via an IV pump where the dose is increased every 30 minutes. The advantages are that it is very closely controlled and can be stopped easily. The disadvantages are that it is not as effective when the cervix is less ripe. We disc that pitocin and the balloon can be used together. The patient and I have have discussed these options a will proceed with Cook's Catheter then re-eval as indicated. Vistaril 100 mg PRN for sleep Reassess in AM or PRN Pelvic pain 12/11/2022 Assessment & Plan (12/11/2022 8:59 AM EDT): -C/o pelvic pain and pressure -Recommended wearing a Belly band and doing sitz baths Vulvar mass 12/04/2022 Overview (12/04/2022): Painful vulvar mass overlying urethral meatus at 35w5d - inflamed urethral caruncle vs edema of anterior vaginal wall. Sent to MD for exam for second look Assessment & Plan (12/04/2022 7:54 AM EDT): Fidelina states that for the past 4 days she has an intensely painful sensation above vaginal opening that feels like intense burning or something tearing apart. Feels worst when she has been sedentary for a while and starts to ambulate again. She denies vaginal bleeding, uterine contractions. She is voiding and stooling normally. On exam, there is a grape-sized mass of edematous tissue that appears to be overlying urethra. Tissue is purple-red and extremely tender. Likely edematous urethral caruncle vs swelling of anterior vaginal wall, however I am somewhat concerned about sudden onset and level of pain. Recommended her n.v. be with MD for repeat exam. 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 Denies VB, LOF, DFM, regular ctx. Warning signs/symptoms reviewed. heart rate/rhythm abnormality, antepartum 11/28/2022 Overview (12/19/2022): Seen on BPP at 35 weeks, echo recommended and scheduled for 12/04/22 Echo done on 12/04, report not yet available. 12/04- Dr Draper Plan Testing: No further cardiac testing needed. Medication/Intervention: No cardiac medication/intervention needed. Follow-up: No need for pediatric cardiology involvement, unless the drag out man should have concerns, in which case I would ask for a follow-up visit with the baby. Assessment & Plan (12/19/2022 10:14 PM EDT): Review of records found note from Dr Draper 12/04- Dr Draper Plan Testing: No further cardiac testing needed. Medication/Intervention: No cardiac medication/intervention needed. Follow-up: No need for pediatric cardiology involvement, unless the drag out man should have concerns, in which case I would ask for a follow-up visit with the baby. This was found after visit and will be relayed to the patient Assessment & Plan (12/05/2022 6:24 PM EDT): Will plan for EKG and follow up with 6-8wks after . Assessment & Plan (12/04/2022 7:57 AM EDT): Fidelina was seen at [facility] over the weekend for decreased movement and had a reactive NST. Due to abnormal heartbeat seen on 11/28 BPP, repeat BPP was recommended for yesterday or today. Unfortunately this was not scheduled. She does have a echo tomorrow and a BPP scheduled for the following today. NST was performed today as an alternative. Normal FHR auscultated and NST was reactive with large accels. Fidelina reports baby's movements are smaller but she is still feeling frequently. Request for sterilization 09/23/2022 Overview (10/26/2022): She is sure her family is complete, tubal ligation discussed 09/23/22 Consents signed 10/21/22 Assessment & Plan (12/25/2022 11:36 PM EDT): Plans PP Tubal Assessment & Plan (12/11/2022 8:46 AM EDT): -Sure of her decision. Assessment & Plan (10/26/2022 9:58 PM EDT): Consents signed today. Assessment & Plan (09/23/2022 3:09 PM EDT): Discussed in visit today, plan to confirm and sign consents in third trimester. Maternal care for other (koffi pected) abnormality and damage, cardiac anomalies, fetus 1 08/21/2022 Overview (11/21/2022): Normal echo w Dr Draper / w f/u scheduled for 10/09 US 10/09 overall reassuring with some limited views, has another follow up next week. Assessment & Plan (11/28/2022 2:26 PM EDT): echo not done this week, pt thinks her appt is next week. Assessment & Plan (11/21/2022 4:33 PM EDT): US 10/09 overall reassuring with some limited views, has another follow up next week. Assessment & Plan (10/08/2022 3:42 PM EDT): Has f/u w Dr Draper scheduled for 10/09 Assessment & Plan (08/27/2022 11:34 AM EDT): Normal echo with Dr. Draper 5/3, results in chart. Plan to reassess in 6 weeks. High-risk , third trimester 06/25/2022 Overview (12/05/2022): CNM OB-CMI score: 3 Group PN care declines Rh pos GC/Chlam neg PAP 2020 NILM HPV neg Tdap 11/07/22 Flu rec'd fall 2021 COVID-19 rec'd x 2 and boosted x 2 Hgb 11.2 GTT n/a 28 wk Repeat RPR neg GBS neg PPBC plans PP tubal screening cfDNA low risk Assessment & Plan (12/19/2022 10:10 PM EDT): Fidelina is a 32 y.o. at 38w0d doing well. Denies VB/LOF/Ctxs. + FM. VE done today d/t plan for IOL at 39 weeks- VE /-2/post. Assessment & Plan (12/11/2022 8:58 AM EDT): Fidelina is a 32 y.o. at 36w6d states she feels well today. Denies any concerns at this time. Denies any LOF/Vaginal bleeding/Ucs. Reports abundance of FM -Has US after this visit for BPP -Measuring S>D Last week US EFW 84% -Discussed FM at this GA and [facility] -Review signs and symptoms of Labor and when/how to contact midwives -Advised on weekly visits from now on. -Reviewed end of discomforts and comfort measures. Assessment & Plan (12/05/2022 6:25 PM EDT): Fidelina is doing OK today. She is feeling regular movement. Having some increased pelvic pain as well as discomfort from the cyst. She is feeling regular movement. BPP 8/8 today. Will need IOL planning at next visit. GENEVIEVE in 1 wk. Assessment & Plan (12/04/2022 7:58 AM EDT): Feels OK, just very tired. Reviewed plan of care and appointments for this week. Reviewed s/s of labor and contacting practice. GBS today. Assessment & Plan (11/28/2022 2:57 PM EDT): Fidelina is feeling well. Baby is active. Pt denies s/sx of PTL. BPP 11/26 today, however, very irregular heart beat noted throughout the exam. NST reactive, however, there was loss of information and was unable to get a 20 minute strip. Will send pt to CBC for extended monitoring. We discussed importance of exercise, following GDM diet, close follow up RTO 1 wk BPP and GENEVIEVE Assessment & Plan (11/21/2022 4:29 PM EDT): Fidelina here with her . Reports active baby, denies vb, lof, ctxs BPP today 11/26, growth 49.8% reviewed that this is normal Pt wondering if she will need to be induced. We discussed that normally with pre-existing DM we recommend IOL between 39-40wks. It will depend on US/NST results as well as overall clinical picture. GENEVIEVE 1 wk Assessment & Plan (11/14/2022 2:32 PM EDT): Fidelina is feeling well. Baby active. Denies s/sx of PTL. We reviewed reassuring BPP today Pt plans to breastfeed. Reviewed Plan of Care per pt request. GENEVIEVE 1 wk. Assessment & Plan (11/07/2022 2:43 PM EDT): Fidelina feels well, just reports more pelvic pressure sooner in this . Reviewed common discomforts of third trimester, particularly with subsequent . Reviewed s/s of labor and contacting practice. EPDS 0, reviewed expectations and resources. TDAP today. Assessment & Plan (10/26/2022 10:00 PM EDT): Feels well, no concerns. Baby is active. Would like TDAP at an upcoming appt. Assessment & Plan (10/08/2022 3:48 PM EDT): Fidelina is feeling well. CBC/RPR ordered for today. Disc hx--she was able to pump x8 mos. 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 Reviewed comfort measures. Reviewed steps to take toward optimal health in . Reviewed s/s PTL, danger signs, when/how to call. Assessment & Plan (09/23/2022 3:05 PM EDT): Fidelina is feeling OK, starting to have some increasing discomforts at night - leg cramps, cramping in lower pelvis when she shifts position in bed. Recommended calf stretches and demonstrated in visit. Baby has been very active. Discussed that she is due for CBC and RPR, will visit lab today. Assessment & Plan (08/27/2022 11:35 AM EDT): Fidelina feels well. Recently came back from a trip to [facility], which was great. She found it harder to follow DM recommendations and testing while traveling. Met with CEDE yesterday and they plan to keep insulin dosage consistent and monitor for another week. Reviewed CBE and GPC offerings. Normal Level II today. She is feeling a little FM, not consistent - anterior placenta, gave reassurance. Needs CBC and RPR ordered at n.v. Assessment & Plan (07/29/2022 10:29 AM EDT): Fidelina is feeling fairly well. Has Level II scheduled for early August. Not feeling FM yet, discussed quickening. She is traveling with her whole family to [facility] for two weeks soon. Obesity affecting in first trimester 0 06/25/2022 Overview (06/25/2022): Obesity in (BMI >30) BMI at Intake 37 Date Obesity plan of care discussed BMI > 50 (at 36 weeks or before) transfer to tertiary care * Recommend daily baby aspirin if another risk factor is present (nulliparity, family h/o pre-eclampsia in mother or sister, age >= 35, IVF , previous with SGA, previous stillbirth, interval >= 10 years between pregnancies) * If BMI 40 or greater discuss policy w patient * first trimester screen for diabetes - HgbA1c or 1-hr glucose tolerance test * Nutrtion counseling * 11-20lb weight gain * Growth sono q 4 wks if fundal height not reliable, after 28 weeks * Induction only if indicated * PP lovenox according to guidelines Kidney stone complicating , first trimakua ster 06/25/2022 Overview (06/25/2022): Fidelina reports a small (4mm) kidney stone that has been stable x 1 year. No treatment planned. Will monitor for symptoms. Preexisting diabetes complicating , ant epartum 05/31/2022 Overview (11/07/2022): Pre-existing diabetes o 1st trimester - (-TSH Type 1 only) - Hgb A1C (A1C btwn 5.7% and <6.5%) - Baseline PIH labs - Consider baseline ECG - consider NT scan (serum not needed if getting cfDNA) - Consider early anatomy scan - Begin baby ASA at 12-14 wks - started 06/25/22 - Referral to MIRIAM or warehouse shipping associate - met with MIRIAM 06/13/22 and is testing QID o Level 2 sono & echo - completed, wnl o Repeat: UA C&S at 28 wks (collected 10/08) o Growth sono at 28wks (42%ile, nml NENA) then q 4 wks (ordered) o 32 wks BPP wkly o 36 wks add NST o Induction 39-40wks Started on Lantus 05/202207/29/22 dose 18 units Lantus qHS 09/23/22 dose 22 unites Lantus 09/30/22: Lantus increased to 30u 10/08/22: Continue your current dose of long acting insulin (30u) 11/07/22 Lantus 45 mg qHS, using Humalog with meals. Values within range And start taking Rapid Acting Insulin (Mealtime Insulin) BEFORE lunch and dinner not at breakfast ? Take 5-10 minutes before first bite of food ? Follow Scale below at LUNCH and DINNER - Meal with no Carbs: 0 units - Small amount of carbs: 1 unit - Normal amount of carbs: 2 units Large amount of carbs: 3 units Assessment & Plan (12/26/2022 8:28 PM EDT): -Getting an epidural now -Will start Q2hr testing at this time -EFW 8-9lbs Assessment & Plan (12/25/2022 11:35 PM EDT): Dr Kelly will place orders for Insulin Patient will use her own CGM and Insulin Pen Assessment & Plan (12/19/2022 10:10 PM EDT): Continues to work with SCOTTIEE and is doing well on current regimen overall. Last night she had some lower blood sugars (58) but did not feel symptomatic. I recommended following up with CEDE if that continues tonight. Will come in to CBC for NST on 12/23 (office is closed). IOL is scheduled for 39 weeks. Assessment & Plan (12/19/2022 7:40 AM EDT): Here for NST, reactive. Discussed plan of care for IOL, which is scheduled. Plan for cervical exam at next OB appt following BPP. Discussed evening insulin with Dr. Taylor, pt advised to take her dose as usual and eat breakfast as usual. Assessment & Plan (12/17/2022 9:30 AM EDT): 37w5d gestation with pre-existing diabetes CGM is going well, suboptimal time in range target of 70-140 mg/dl, most consistent patterns are prandial elevations with lunch and dinner with prolonged time spent above target after these meals Advised continuing Lantus 53 units, discussed increasing lunch mealtime insulin, advised adding a 2-3 unit correction to dinner time if premeal sugar is elevated Revisited strategies with meal time insulin to aid in tighter glycemic control Advised Fidelina to work on being mindful of carb intake and reducing carb amounts as able, if elevations persist would recommend increasing prandial insulin further IOL scheduled for 12/25, reviewed considerations for insulin before IOL as well as after delivery, Fidelina is encouraged to continue to closely monitor blood sugars after delivery with CGM and then 4-6 weeks after delivery Discussed risk of hypoglycemia for baby after delivery, encouraging keeping blood sugar patterns as tightly controlled as possible for this remaining week, reaching out with any questions or concerns Encouraged continued efforts at balanced, mindful eating Encouraged continued efforts with physical activity as tolerated Fidelina will follow-up with me 3 months after delivery. Encouraged reaching out to me with any questions or concerns in the interim. Assessment & Plan (12/11/2022 8:56 AM EDT): -IOL scheduled for 12/25 at 1830 -Please discuss more details on IOL process NV Assessment & Plan (12/05/2022 6:29 PM EDT): Continue to follow with MIRIAM. BPP 11/26, EFW 84%, NENA 20 Assessment & Plan (11/28/2022 2:25 PM EDT): Pt reports fasting BS normal Just increased humalog to 14-16 units before lunch. Closely followed by MIRIAM Assessment & Plan (11/21/2022 4:32 PM EDT): Pt reports her BS values have been a bit elevated. Saw MIRIAM yesterday. Pt continues to take 45 units of Lantus qhs 6-8units of humalog before breakfast 12-14 units of humalog before lunch 14-16 units of humalog before dinner Assessment & Plan (11/14/2022 2:30 PM EDT): BPP 11/26 today. We reviewed US results. Baby vertex Reports all fastings <95. Most pp within normal range. occ elevated after dinner if she has an after dinner snack. Working closely with Endocrine. Assessment & Plan (11/07/2022 2:42 PM EDT): Taking 45 units Lantus at bedtime, using Humalog with meals. Glucose has been within range over the past week. Growth at 73rd %ile. Has weekly BPPs scheduled. Discussed plan of care for remainder of . Assessment & Plan (10/26/2022 10:01 PM EDT): Met with Caprice Zaldivar this morning, pre-meal and evening insulin dosages have all increased. Reviewed plan of care in the third trimester. Growth was 42nd %ile at 28 weeks. She has growth scheduled for 32 weeks, BPPs ordered through 36 weeks. Assessment & Plan (10/21/2022 10:56 AM EDT): 29w gestation with pre-existing diabetes CGM is going well, suboptimal time in range target of 70-140 mg/dl, most consistent patterns are prandial elevations and prolonged time spent above target after meals Advised continuing Lantus 30 units, discussed increasing mealtime insulin at length today Revisited strategies with meal time insulin to aid in tighter glycemic control Advised Fidelina to work on being mindful of carb intake and reducing carb amounts with patterns of post prandial hyperglycemia, if unable to avoid post prandial hyperglycemia despite dietary adjustments, would recommend increasing prandial insulin further. Reviewed blood sugar targets in , testing frequency We will continue weekly blood sugar check ins We discussed pre-existing diabetes in , implications and risks Encouraged continued efforts at balanced, mindful eating Encouraged continued efforts with physical activity as tolerated Fidelina will follow-up with Chrissie in 1 month and with me in 2 months, continuing with weekly check ins on patient gateway. Encouraged reaching out to me with any questions or concerns. Assessment & Plan (10/08/2022 3:50 PM EDT): Reviewed nml growth at 28w (42%) w nml NENA Disc growth at 32w and then weekly BPP therafter. Rpt UC collected today. Feels she understands plan to add in short-acting insulin w sliding scale Enc evening walks after dinner w her family Assessment & Plan (10/03/2022 9:34 AM EDT): 27w gestation with pre-existing diabetes CGM is going well, suboptimal time in range target of 70-140 mg/dl, reviewed goal of > 70% of time spent in this range Advised increasing Lantus to 30 units to help with new fasting hyperglycemia and overall high patterns throughout the day Revisited strategies to adjust meal choices to aid in tighter glycemic control, as well as walking after meals, Fidelina has times where blood sugars are persistently elevated after meals, and other times meeting targets, likely meaning that these variations are dietary related. Diet has been looser over the past several days, revisited prandial insulin with Fidelina, concern for days where post prandial sugar is slow to come down but does come down to near low levels, prandial insulin may lead to low blood sugar in these instances Advised Fidelina to work on being mindful of carb intake and reducing carb amounts with patterns of post prandial hyperglycemia, if unable to avoid post prandial hyperglycemia despite dietary adjustments, would recommend starting prandial insulin. We discussed giving patterns a little less than a week and if hyperglycemia persists, would recommend prandial insulin start when meeting with Chrissie. Reviewed blood sugar targets in , testing frequency We will continue weekly blood sugar check ins. We discussed pre-existing diabetes in , implications and risks Encouraged continued efforts at balanced, mindful eating Encouraged continued efforts with physical activity as tolerated Fidelina will follow-up with Chrissie in next week and we will follow up every 2 weeks after that, alternating between Chrissie and myself. Encouraged reaching out to me with any questions or concerns. Assessment & Plan (09/23/2022 3:08 PM EDT): Fidelina is struggling a little with post-prandial glucose, feels like it's been all over the place. Fasting is mildly elevated but seems more predictable. May start mealtime insulin soon in addition to Lantus at night. Getting a new CGM this week. Notes walking is very helpful for glucose mgmt. Has growth U/S scheduled with n.v. Assessment & Plan (08/27/2022 11:34 AM EDT): Struggled a little with glucose mgmt while traveling. Using lantus 11 units at night, plans to continue with this for now. Reviewed growth U/S at 28 and 32 weeks. Assessment & Plan (08/22/2022 9:10 AM EDT): 21w gestation with pre-existing diabetes CGM is going well, did have one fall off early and we discussed calling the [employer], adjusted time in range target to be 70-140 mg/dl, matching up to standards with . Reviewed goal of > 70% of time spent in this range Revisited strategies to adjust meal choices to aid in tighter glycemic control, as well as walking after meals, Fidelina has times where blood sugars are persistently elevated after meals, and other times meeting targets, likely meaning that these variations are dietary related. Diet was looser when visiting family back home and Fidelina is hopeful being able to prepare own meals will help to improve these patterns. Briefly discussed prandial insulin Encouraged being mindful of carb intake and reducing carb amounts with patterns of post prandial hyperglycemia Reviewed blood sugar targets in , testing frequency. Prescription for CGM sent to pharmacy Fidelina will continue to BG and food logs into me weekly. We discussed pre-existing diabetes in , implications and risks Encouraged continued efforts at balanced, mindful eating Encouraged continued efforts with physical activity as tolerated Fidelina will follow-up with Chrissie in 3 weeks and with me in 6 weeks, sending weekly logs in between. Encouraged reaching out to me with any questions or concerns. Assessment & Plan (07/29/2022 10:30 AM EDT): Has been working with MIRIAM and has gotten a CGM. Finds dietary advice easier to follow now that she is less nauseated. Blood glucose control is improving with Lantus, fasting 95-110, post-prandial 140-150, some days 180-200. Has an appointment with MIRIAM tomorrow. Taking baby ASA. Reviewed plan of care for remainder of , discussed and ordered echo. Assessment & Plan (07/17/2022 11:02 AM EDT): 15w6d gestation with pre-existing diabetes Is testing at work so these are missing from download on weekdays, plans to send these in later today Home meter reveals primarily elevated patterns, higher than goal, recommend increase in Lantus Also discussed strategies to adjust meal choices to aid in tighter glycemic control, Fidelina has times where blood sugars are very high after meals, and other times meeting targets, likely meaning that these variations are dietary related. Encouraged being mindful of carb intake and reducing carb amounts with patterns of post prandial hyperglycemia Reviewed blood sugar targets in , testing frequency. Prescription for CGM sent to pharmacy CGM will be hugely beneficial to allow Fidelina to monitor blood sugar patterns more closely during while on insulin. Fidelina is already making mindul meal adjustments based on post prandial blood sugars. CGM will allow more frequent and rapid adjustments in lifestyle in response to realtime feedback that CGM provides Fidelina will continue to BG and food logs into me weekly. We discussed pre-existing diabetes in , implications and risks Encouraged continued efforts at balanced, mindful eating Encouraged continued efforts with physical activity as tolerated Fidelina will follow-up with Chrissie in 2 weeks and with me in 5 weeks, sending weekly logs in between. Encouraged reaching out to me with any questions or concerns. Assessment & Plan (07/13/2022 7:48 AM EDT): Has been testing QID, fasting and postprandial consistently elevated. Started on Lantus, current dose 6 units. Discussed recommendations for Level II at 16 and 20 weeks, message sent to schedule. Will also need echo at 22 weeks, order at n.v. Assessment & Plan (06/13/2022 4:27 PM EST): [facility]. She is 11 weeks gestation with pre-existing diabetes Is testing at work, but needs a home monitor to begin to do this more frequently Reported blood sugars are higher than goal, likelihood of needing to start insulin next visit with more consistent blood sugar monitoring Reviewed blood sugar targets in , testing frequency and provided a glucose loga. Prescription for meter kit, testing supplies, urine ketone strips were sent to patients preferred pharmacy. Fidelina will send BG and food logs into me weekly. We discussed pre-existing diabetes in , implications and risks, and treatment plans depending on blood sugars. We will review sugars in one week to evaluate treatment plan. Encouraged continued efforts at balanced, mindful eating Encouraged continued efforts with physical activity as tolerated Fidelina will follow-up with Chrissie in 2 weeks and with me in 4 weeks, sending weekly logs in between. Encouraged reaching out to me with any questions or concerns. Resolved Problems Problem Noted Date Diagnosed Date Resolved Date Type 2 diabetes mellitus 08/24/2020 Overview (08/24/2020): 2019- HgbA1C 6.7 and metformin started and decreased to 5.9 Assessment & Plan (08/24/2020 8:53 AM EDT): Healthy diet and exercise to promote weight loss encouraged. Encounter for surveillance o f contraceptive pills 08/24/2020 06/08/2022 Assessment & Plan (08/24/2020 8:56 AM EDT): Pt considering LARC method, risks /benefits reviewed. - considering Kyleena IUD. Pt to call for appt if interested. care following vaginal delivery 10/23/2018 06/08/2022 Gestational diabetes mellitu s (GDM) in childbirth, insulin controlled 10/21/2018 3 Overview (10/21/2018): 1hr GTT 215 10/21/18 managed with 20u NPH qAM, 10u NPH qHS Assessment & Plan (11/30/2018 11:18 AM EDT): 11/11 HgbA1c 5.8. Diet and exercise encouraged. Weight watchers suggested. Pt weighed 145lbs prior to first preg. Annual f/u with pcp. Assessment & Plan (10/21/2018 5:23 AM EDT): Admit to CBC in active labor Plan for 1/2 morning dose of NPH, initiate POC blood glucose q2h Plan for diabetic diet, will initiate sliding scale as needed Normal labor 10/21/2018 11/30/2018 Overview (10/21/2018): Admitted on 10/21/18 with painful contractions felt primarily in low back starting late evening on 10/20/18. Also c/o blood tinged mucous and felt she saw some blood in her urine. A: 28 y.o. at 38w6d in early labor GDMA2, well controlled Cat 1 FHR GBS neg P: Bolus for epidural Pt did not receive NPH dose this morning and last blood glucose was 95. As she will be on clear liquids following epidural, will hold NPH dose and initiate sliding scale. Continue to check blood glucose q 1 hr Reassess in 2-3 hrs Normal intrauterine , antepartum 10/21/2018 11/30/2018 Decreased movements in third trimester 9 10/12/2018 Overview (10/03/2018): Seen in CBC 10/03/2018 with RNST. [facility] instructions reviewed. Hyperemesis 03/17/2018 10/15/2018 Overview (03/17/2018): Cannot keep anything down for past 3 days. Happened with first as well. Rx for zofran ODT and will start taking VB6 and unisom Immunizations Immunization Administration Dates Next Due Hepatitis B Adult 12/28/2012,07/24/2012,06/23/19 13 Influenza Quadrivalent MDCK Preservative Free IM 01/05/2020 Influenza Quadrivalent Prese rvative Free IM 01/17/2021,03/02/2019 Influenza Quadrivalent w/ Pr eservative IM 02/19/2019 Influenza Trivalent Preserva tive Free IM 02/14/2016,05/01/2015 Influenza Trivalent w/ Preservative IM 1 ,04/27/2013,05/28/2012,05/17 MMR 10/15/2010 Meningococcal ACWY, unspecif ied formulation 10/10/2014 Pneumococcal polysaccharide PPSV23 09/20/2021 Td, unspecified formulation 10/15/2010 Tdap 11/07/2022, 9,04/22/2018,05/28 Typhoid, ViCPs 09/10/2012 Varicella 10/15/2010 Family History Medical History Relation Comments Hypertension Mother Relation Status Comments Daughter Alive Father Alive Mother Alive Sister Alive Social History Tobacco Use Types Packs/Day Years Used Date Smoking Tobacco: Never Smokeless Tobacco: Never Tobacco Cessation:Counseling Given: Not Answered Alcohol Use Standard Drinks/Week Comments No 0 (1 standard drink = 0.6 oz pur e alcohol) Education Answer Date Recorded Are you interested in more education? Not on anabelle e 08/16/2022 Are you concerned about learning? Not on file 08/16/2022 No 08/16/2022 No 08/16/2022 Digital Access Answer Date Recorded No 09/10/2022 No 09/10/2022 Reliable internet access at home? Not on file 09/10/2022 Device with a working camera? Not on file Intimate Partner Violence Answer Date R ecorded Are you denied basic needs s uch as food, clothing, or medical care? No 12/25/2022 In the past 12 months have y ou been in a relationship with a person who hurts, threatens, or tries to control you? No 12/25/2022 Are you denied basic needs s uch as food, clothing, or medical care? No 12/25/2022 In the past 12 months have y ou been in a relationship with a person who hurts, threatens, or tries to control you? 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 Not on file Not on file Last Filed Vital Signs Vital Sign Reading Time Taken Comments Blood Pressure 114/74 07/20/2024 3:06 PM EDT Pulse 80 12/29/2022 3:30 AM EDT Temperature 36.5 C (97.7 F) 12/29/2022 3:31 PM EDT Respiratory Rate 18 12/29/2022 3:31 PM EDT Oxygen Saturation 96% 12/29/2022 3:31 PM EDT Inhaled Oxygen Concentration - - Weight 96.2 kg (212 lb) 07/20/2024 3:06 PM EDT Height 157.5 cm (5' 2 ) 07/20/2024 3:06 PM EDT Body Mass Index 38.78 07/20/2024 3:06 PM EDT Plan of Treatment Health Maintenance Due Date Last Done Comments DEPRESSION SCREENING 2001 DIABETIC EYE EXAM 08/24/2020 PNEUMOCOCCAL VACCINES (0-49 years) (2 of 2 - PCV) 09/20/2022 09/20/2021 HEMOGLOBIN A1C 12/26/2022 06/25/2022, 10/20, 11/11/2018, Additional history exists CREATININE LEVEL 06/26/2023 06/25/2022 POTASSIUM LEVEL 06/26/2023 06/25/2022, 10/21/2018 COVID-19 VACCINE ( season) 2023 01/22/2023, 04/11/2021, 06/21/2020, Additional history exists BLOOD PRESSURE 01/19/2025 07/20/2024 PAP SMEAR 08/24/2025 08/24/2020, 04/27/2020 Adult Td,Tdap Booster 11/07/2032 11/07/2022 , 08/20/2018, 04/22/2018, Additional history exists MENINGOCOCCAL VACCINES (ACWY) Aged Out 10/10/2014 No longer eligible based on patient's age to complete this topic HEPATITIS C SCREENING Completed 06/25/2022, 018 HIV ONE-TIME SCREENING (18-65 YEARS) Completed 06/25/2022 SMOKING STATUS SCREENING (Once After 26 Yrs) Completed 01/16/2023 HEPATITIS A VACCINES Aged Out No long er eligible based on patient's age to complete this topic HIB VACCINES Aged Out No longer eligi ble based on patient's age to complete this topic MENINGOCOCCAL VACCINES (B) Aged Out N o longer eligible based on patient's age to complete this topic Medical Devices Not on file Procedures Procedure Name Priority Date/Time Associated Diagnosis Comments HEMOGLOBIN A1C Routine 06/25/2022 2:58 PM EST Preexisting diabetes complicating , antepartum HEPATITIS C ANTIBODY, QUALITATIVE Routine 06/25/2022 2:58 PM EST Supervision of high risk in first trimester Routine screening for STI (sexually transmitted infection) COMPREHENSIVE METABOLIC PANEL Routine 06/25/2022 2:58 PM EST Preexisting diabetes complicating , antepartum Supervision of high risk in first trimester PAP TEST Routine 08/24/2020 12:00 AM EDT from Last 3 Months or Most Recently Relevant to Health Maintenance Results * (ABNORMAL) Comprehensive metabolic panel (06/25/2022 2:58 PM EST) SODIUM 137 133 - 146 mmol/L [facility] POTASSIUM 3.6 3.3 - 5.1 mmol/L [facility] CHLORIDE 103 96 - 108 mmol/L [facility] CO2 22 21 - 35 mmol/L [facility] BUN 4(L) 6 - 19 mg/dL [facility] CREATININE 0.40(L) 0.5 - 1.5 mg/dL [facility] GLUCOSE 66(L) 70 - 99 mg/dL [facility] ALBUMIN 3.9 3.9 - 4.8 g/dL [facility] TOTAL PROTEIN 7.3 6.5 - 8.0 g/dL [facility] CALCIUM 9.0 8.4 - 10.3 mg/dL [facility] ALKALINE PHOSPHATASE 59 39 - 117 U/L [facility] TOTAL BILIRUBIN 0.3 0.0 - 1.2 mg/dL [facility] AST 21 0 - 37 U/L [facility] ALT 17 0 - 40 U/L [facility] GLOBULIN 3.4 1 - 4.8 g/dL [facility] EGFR >120 >59 mL/min/1.7 3m2 [facility] Comment:Estimated glomerular filtration rate calculated using the CKD-EPI refit equation. ANION GAP 16 10 - 20 mmol/L [facility] Blood 06/25/2022 2:58 PM EST 06/25/2022 3:12 PM EST Padmini Colbert MD LAB BLOOD ORDERABLES Final Result [address] [address] * Hepatitis C antibody, qualitative (06/25/2022 2:58 PM EST) HCV NON-REACTIV E NON-REACTI VE [facility] Blood 06/25/2022 2:58 PM EST 06/25/2022 3:12 PM EST Padmnii Colbert MD LAB BLOOD ORDERABLES Final Result [address] [address] * (ABNORMAL) Hemoglobin A1c (06/25/2022 2:58 PM EST) HEMOGLOBIN A1C 5.9(H) 4.3 - 5.8 % [facility] Blood 06/25/2022 2:58 PM EST 06/25/2022 3:12 PM EST Padmini Colbert MD LAB BLOOD ORDERABLES Final Result [address] [address] * Pap Smear (08/24/2020 12:00 AM EDT) 08/24/2020 08/25/2020 8:5 7 AM EDT Narrative SEE NARRATIVE - 08/31/2020 10:06 AM EDT [address] [address] Teacher Aide: Francesca Vaughan MD APPLIANCE TECHNICIAN Cytology Report FINAL DIAGNOSIS A. PAP SMEAR (SUREPATH) CE: SPECIMEN ADEQUACY: Satisfactory for evaluation; transformation zone present. INTERPRETATION: NEGATIVE FOR INTRAEPITHELIAL LESION OR MALIGNANCY. Electronically Signed Out By: KOBE Nguyen(ASCP) The Pap test is a screening test primarily for squamous cancers and precursors and has associated false-negative and false-positive results. New technologies such as liquid-based preparations may decrease but will not eliminate all false-negative results. Regular sampling and follow-up of unexplained clinical signs and symptoms are recommended to minimize false negative results. PROCEDURES/ADDENDA HPV Testing (Requested) Ordered Date: 08/25/2020 A. PAP SMEAR (SUREPATH) CE: Human Papilloma Virus Test Negative for high-risk human papillomavirus types 16, 18, 45 and the Other high risk probe set (Includes 31, 33, 35, 39, 51, 52, 56, 58, 59, 66, 68) by [email or web address] On[employer] HR-HPV analysis. Clinical correlation is advised. This HPV test was performed at [facility], [address] [place] [address]. This test has been FDA approved for SurePath cervical cytology specimens. The accuracy and precision of this test for all other specimen sources has been verified in the Cytopathology Laboratory of the [facility] and has not been cleared or approved by the U.S. Food and Drug Administration. Clinical correlation is advised. CLINICAL HISTORY Date of Last Menstrual Period: Not Provided Menstrual History: Unknown Other Clinical Conditions: Screening Pap SPECIMEN SOURCE A: PAP SMEAR (SUREPATH) CE Patient Name: YOBANY FIDELINA RODRÍGUEZ RAI : 1990 (Age: 30) Sex: F Institution: [facility] Location: [facility] Date of Collection: 08/24/2020 Date of Reported: 08/31/2020 10:07 Results to: Magui Hoang MD Magui Hoang MD CYTOLOGY ORDERABLES Final Result SEE NARRATIVE from Last 3 Months or Most Recently Relevant to Health Maintenance Insurance [facility] Advance Directives For more information, please contact: [phone] (9AM - 5PM [facility], Friday-Friday) Documents on File Type Date Recorded Patient Md Urologist Expl anation Healthcare Proxy 12/30/2022 4:59 PM Healthcare Proxy 10/26/2018 12:02 PM PROXY * Full Code (Latest Code Status on File) Date Activated Date Inactivated Comments 12/28/2022 10:17 AM Question Answer Comments Code Status Confirmed With: Patient * Full Code Date Activated Date Inactivated Comments 12/25/2022 7:38 PM 12/28/2022 10:17 AM Question Answer Comments Code Status Confirmed With: Patient * Full Code (Presumed) Date Activated Date Inactivated Comments 10/21/2018 3:31 PM 10/23/2018 4:31 PM * Full Code (Presumed) Date Activated Date Inactivated Comments 10/21/2018 5:14 AM 10/21/2018 3:31 PM * Full Code (Presumed) Date Activated Date Inactivated Comments 10/03/2018 9:39 AM 10/03/2018 11:49 AM Care Teams Senior Treasury Consultant Relationship Specialty Start Date End Date Alberta Rosales MD [address] [place] [address] PCP - General Internal Medicine 05/03/20 Neena Blanton CNM [address] [place] [id number] [email or web address] Obstetrics and Gynecology 08/21/22 Additional Source Comments The information contained in this document represents components of the legal health record. It is not the complete legal health record.[facility]
== END 2024-11-15 08:41 | disposition home or self-care (01) ==
LOC: HO.US 08:40
PROVIDERS: PCP Internal Medicine; Visit Provider Nurse Practitioner Family
DX: N20.0 Calculus of kidney (principal)
CPT/HCPCS: 76770

== ENCOUNTER → 2024-11-15 08:42 | Outpatient (BNV) | payer OTHER, SELFPAY | PROVIDERS: PCP Internal Medicine; Visit Provider Radiology Vascular & Interventional Radiology | DX: N20.0 Calculus of kidney (principal) | CPT/HCPCS: 76770 ==

== ENCOUNTER 2024-12-09 08:14 | Outpatient (AMB) | payer OTHER, SELFPAY ==
--- NOTE | 2024-12-09 08:15 | A.OFFVIS_ITS ---
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 Rosales. She has a past medical history of diabetes mellitus, dyslipidemia, nephrolithiasis, and obesity. She is being followed up on today via video telehealth for her history of nephrolithiasis. In discussion with the patient today she reports to be doing and feeling well. She denies having had any bothersome urinary issues or concerns since her last office visit. She discusses her daughters 2nd birthday next month. Recent renal imaging results were reviewed bilateral kidneys are normal in size and echotexture. Bilateral kidneys with no hydronephrosis. Left 3 mm upper pole nonobstructing calculi. The urinary bladder is unremarkable. When asked she continues to report compliance with vitamin B6, lemon juice, and drinking plenty of water daily. When asked she denies urinary urgency, urinary frequency, incontinence, nocturia, hematuria, dysuria, foul smelling urine, changes to urinary stream, flank pain, fever, and or chills. She is happy with her current voiding parameters. Discussed at length nephrolithiasis interventions with surveillance monitoring versus surgical intervention. Discussed risks and benefits of these options. She otherwise offers no other issues or concerns at this time. [facility] Medical History Vitamin D deficiency Cough due to SINDHU inhibitor Right nephrolithiasis Ureterolithiasis Diabetes mellitus with microalbuminuria, without long-term current use of insulin Obesity Dyslipidemia Surgical History History of tubal ligation History of laparoscopic appendectomy Family History Father Unknown family medical history Mother Diabetes mellitus Sister No problems noted. Son No problems noted. Daughter No problems noted. 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 needs: No Hearing needs: No Vision needs: Yes Review of Systems Const Reports as per HPI Eyes Reports no additional complaints ENT Reports no additional complaints Card Reports no additional complaints Resp Reports no additional complaints GI Reports as per HPI Reports as per HPI Musc Reports no additional complaints Neuro Reports no additional complaints Psych Reports no additional complaints Endo Details: Patient reports she is diabetic Reports as per HPI Walter/Lymph Reports no additional complaints Aller/Immun Reports no additional complaints Physical Exam Const General: cooperative, healthy appearing, comfortable, no acute distress, well developed, alert and awake Orientation/consciousness: patient oriented x3 Resp Effort & Inspection: normal respiratory effort and able to speak in complete sentences Neuro General: patient oriented x3 Psych Appearance: grossly normal and well kempt Speech and movement: Normal speech and movement present and Clear speech present Affect: normal affect Attitude: cooperative Thought process: Normal thought process present Insight: Fair insight present (Psych) Judgement: Fair judgement present (Psych) Telehealth Telehealth Telehealth Platform: Telephone Location of provider rendering services: practice address Location of patient: address on file Patient Identification confirmed using: Name, : Yes Telehealth method: video Patient verbally consented to treatment: Yes Patient verbally consented to billing insurance company: Yes Patient informed of any privacy concerns related to visit: Yes Minutes spent on Phone/Video with Pt.: 15 Results Reviewed Results Reviewed: Date of Service: 11/15/24 Procedure(s): US retroperitoneal comp US Renal Comparison: US/SR - US KIDNEY BILATERAL - 06/03/23 08:24 EST Findings: Right kidney normal size and echotexture, 11.6 cm length. Left kidney normal size and echotexture, 11.9 cm length. 3 mm midpole calculus. No hydronephrosis of either kidney. Normal color Doppler. Urinary bladder is unremarkable. Prevoid volume 200 mL. Postvoid volume 12 mL. Bilateral ureteral jets are visualized. IMPRESSION: Nonobstructing 3 mm left-sided calculus. No significant postvoid residual. Assessment & Plan Assessment & Plan (1) Calculus of kidney: Code(s): N20.0 - Calculus of kidney Category: Medical Plan Recent retroperitoneal ultrasound results reviewed with the patient today; as noted above Continue drinking plenty of water daily. Continue adding 1 oz of lemon juice to water daily. Continue vitamin B6 as discussed and prescribed. Will continue with surveillance monitoring at this time. She denies any bothersome urinary issues or concerns. She is happy with current voiding parameters. Will obtain renal ultrasound in 1 year Follow-up in 1 year with imaging to be completed prior; or sooner with any issues, concerns, and or questions. Orders: Orders US renal BI 1 Year N20.0 - Calculus of kidney Patient Instructions: The patient had an opportunity to ask questions regarding the treatment plan. All questions were answered. Physical exam, labs, and imaging were discussed and reviewed in detail. As well as risks, benefits, and discussion of treatment choices. No major barriers to understanding were identified. The patient expressed understanding and agreement with the above treatment plan. The patient was made aware they should contact our office by phone for worsening of their current condition, the appearance of new symptoms, or with any questions or concerns. Compliance is encouraged with any medications and follow up testing that is ordered. It is a privilege to be allowed the opportunity to participate in? your urological care.? Again, if you have any questions or concerns If you have any questions or concerns please do not hesitate to contact me. The office is [phone]. This note is constructed using voice recognition software. While every effort has been made to ensure accuracy room service waiter errors may have been included. Yours sincerely, RAJAN Meza Coding Level of Care Code Tele Est Pt Level 3 (48809) Diagnoses Calculus of kidney N20.0
== END 2024-12-09 08:36 | disposition home or self-care (01) ==
LOC: HO.HUSH 08:14
PROVIDERS: PCP Internal Medicine; Visit Provider Nurse Practitioner Family
DX: N20.0 Calculus of kidney (principal)
CPT/HCPCS: 99213

== ENCOUNTER 2024-12-24 08:20 | Outpatient (REF) | payer OTHER, SELFPAY ==
--- OUTSIDE RECORDS SUMMARY | 2024-12-24 08:47 | XMS_ITS | Clinical Summary ---
Author Organization [facility] Address [facility] [address] [place] [phone] Phone Care Team Providers Care Fibrous Wallboard Inspector Name Role Phone Alberta Rosales MD Primary [...] return to office as needed for routine OVEN ROASTER care Encounter for induction of labor 12/25/2022 [...] need for pediatric cardiology involvement, unless the supervisor carbon electrodes should have concerns, in which case I would ask for a follow-up visit with the baby. Assessment & Plan (12/19/2022 10:14 PM EDT): Review of records found note from Dr Draper 12/04- Dr Draper Plan Testing: No further cardiac testing needed. Medication/Intervention: No cardiac medication/intervention needed. Follow-up: No need for pediatric cardiology involvement, unless the supervisor carbon electrodes should have concerns, in which case I would ask for a follow-up visit with the baby. This was found after visit and will be relayed to the patient Assessment & Plan (12/05/2022 6:24 PM EDT): Will plan for EKG and follow up with 6-8wks after . Assessment & Plan (12/04/2022 7:57 AM EDT): Fidelina was seen at [facility] over the weekend for decreased movement [...] Recently came back from a trip to [facility], which was great. She found it harder [...] is traveling with her whole family to [facility] for two weeks soon. Obesity affecting in [...] started 06/25/22 - Referral to MIRIAM or food service assistant - met with MIRIAM 06/13/22 and is [...] off early and we discussed calling the [employer], adjusted time in range target to be [...] presents for an initial visit in the [facility]. She is 11 weeks gestation with pre-existing [...] Next Due Hepatitis B Adult 12/28/2012,07/24/2012,06/23/19 13 INFLUENZA, SPLIT VIRUS, TRIVALENT PF 02/14/2016, 05/01/2015 INFLUENZA, SPLIT VIRUS, TRIV ALENT W/ PRESERVATIVE IM 02/04/2014,04/27/2013,05/28/2012,05/17 Influenza Quadrivalent MDCK Preservative Free IM 01/05/2020 Influenza Quadrivalent Prese rvative Free IM 01/17/2021,03/02/2019 Influenza Quadrivalent w/ Pr eservative IM 02/19/2019 MMR 10/15/2010 Meningococcal ACWY, unspecif ied formulation [...] 06/26/2023 06/25/2022 POTASSIUM LEVEL 06/26/2023 06/25/2022, 10/21/2018 INFLUENZA VACCINE (#1) 2024 , 01/05/2020, 03/02/2019, Additional history exists COVID-19 VACCINE ( season) 2024 01/22/2023, 04/11/2021, 06/21/2020, Additional history exists BLOOD [...] EST) SODIUM 137 133 - 146 mmol/L [facility] POTASSIUM 3.6 3.3 - 5.1 mmol/L [facility] CHLORIDE 103 96 - 108 mmol/L [facility] CO2 22 21 - 35 mmol/L [facility] BUN 4(L) 6 - 19 mg/dL [facility] CREATININE 0.40(L) 0.5 - 1.5 mg/dL [facility] GLUCOSE 66(L) 70 - 99 mg/dL [facility] ALBUMIN 3.9 3.9 - 4.8 g/dL [facility] TOTAL PROTEIN 7.3 6.5 - 8.0 g/dL [facility] CALCIUM 9.0 8.4 - 10.3 mg/dL [facility] ALKALINE PHOSPHATASE 59 39 - 117 U/L [facility] TOTAL BILIRUBIN 0.3 0.0 - 1.2 mg/dL [facility] AST 21 0 - 37 U/L [facility] ALT 17 0 - 40 U/L [facility] GLOBULIN 3.4 1 - 4.8 g/dL [facility] EGFR >120 >59 mL/min/1.7 3m2 [facility] Comment:Estimated glomerular filtration rate calculated using the CKD-EPI refit equation. ANION GAP 16 10 - 20 mmol/L [facility] Blood 06/25/2022 2:58 PM EST 06/25/2022 3:12 PM EST Padmini Colbert MD LAB BLOOD ORDERABLES Final Result [facility] [address] [place] [address] * Hepatitis C antibody, qualitative (06/25/2022 2:58 PM EST) HCV NON-REACTIV E NON-REACTI VE [facility] Blood 06/25/2022 2:58 PM EST 06/25/2022 3:12 PM EST Padmini Colbert MD LAB BLOOD ORDERABLES Final Result [address] [address] * (ABNORMAL) Hemoglobin A1c (06/25/2022 2:58 PM EST) HEMOGLOBIN A1C 5.9(H) 4.3 - 5.8 % [facility] Blood 06/25/2022 2:58 PM EST 06/25/2022 3:12 PM EST Padmini Colbert MD LAB BLOOD ORDERABLES Final Result Performing Organization Address [facility]/ZIP Co de Phone Number [address] [address] * Pap Smear (08/24/2020 12:00 AM EDT) 08/24/2020 08/25/2020 8:5 7 AM EDT Narrative SEE NARRATIVE - 08/31/2020 10:06 AM EDT [address] [address] Warehouse Selector: Francesca Vaughan MD OVEN ROASTER Cytology Report FINAL DIAGNOSIS A. PAP SMEAR [...] 52, 56, 58, 59, 66, 68) by [place] On[facility] HR-HPV analysis. Clinical correlation is advised. This HPV test was performed at [facility], [address] [place] [address]. This test has been FDA approved for SurePath cervical cytology specimens. The accuracy and precision of this test for all other specimen sources has been verified in the Cytopathology Laboratory of the [facility] and has not been cleared or approved by the U.S. Food and Drug Administration. Clinical correlation is advised. CLINICAL HISTORY Date of Last Menstrual Period: Not Provided Menstrual History: Unknown Other Clinical Conditions: Screening Pap SPECIMEN SOURCE A: PAP SMEAR (SUREPATH) CE Patient Name: JELLYAlannah FIDELINA RODRÍGUEZ RAI : 1990 (Age: 30) Sex: F Institution: [facility] Location: [facility] Date of Collection: 08/24/2020 Date of Reported: 08/31/2020 10:07 Results to: Magui Hoang MD Magui Hoang MD CYTOLOGY ORDERABLES Final Result SEE NARRATIVE from Last 3 Months or Most Recently Relevant to Health Maintenance Insurance [facility] [place] [address] [address] [facility] Advance Directives For more information, please contact: [phone] (9AM - 5PM [facility], Friday-Friday) Documents on File Type Date Recorded Patient Border Inspector Expl anation Healthcare Proxy 12/30/2022 4:59 PM [...] 9:39 AM 10/03/2018 11:49 AM Care Teams Fibrous Wallboard Inspector Relationship Specialty Start Date End Date Alberta Rosales MD [employer] [facility] [place] [address] PCP - General Internal Medicine 05/03/20 Neena Blanton CNM 22 [facility], [address] [address] [email or web address] Obstetrics and Gynecology 08/21/22 Additional Source Comments The information contained in this document represents components of the legal health record. It is not the complete legal health record.[facility]
--- OUTSIDE RECORDS SUMMARY | 2024-12-24 08:47 | XMS_ITS | Encounter Summary ---
Author Organization [facility] Address [address] [place] [address] 7 [place] [address] Care Team Providers Care Electrician Marine Name Role Phone Unavailable Primary Care Provider Unavailabl e Encounter Details Date Type Department Care Team (Latest Contact Info) Description 09/18/2018 Abstract [facility] CONVERSIONS Dental, Provider, DDS Social History [...]
--- OUTSIDE RECORDS SUMMARY | 2024-12-24 08:47 | XMS_ITS | Encounter Summary ---
Author Organization [facility] Address [facility] [address] [place] [address] Phone Care Team Providers Care Assembler Tractor Name Role Phone Alberta Rosales MD Primary Care Provider Neena Blanton CNM Unavailable Encounter Details Date Type Department Care Team (Late st Contact Info) Description 12/28/2022 Procedure Pass [place] Admitting Dept - Virtual Department [address] [place] [address] Social History Tobacco Use Types Packs/Day Years Used Date Smoking Tobacco: Never Smokeless Tobacco: Never Alcohol Use Standard Drinks/Week Comments No 0 [...] file Not on file Not on file documented as of this encounter Plan of Treatment Not on file documented as of this encounter Visit Diagnoses Not on filedocumented in this encounter Additional Health Concerns Infection Onset Date Last Indicated Resolved Time CoV-Risk 12/27/2022 12/27/2022 01/07/2023 1:22 AM EDT documented as of this encounter Care Teams Assembler Tractor Relationship Specialty Start Date End Date Alberta Rosales MD [facility] [address] PCP - General Internal Medicine 05/03/20 Neena Blanton CNM 22 [facility], [facility] [address] [place] [address] [email or web address] Obstetrics and Gynecology 08/21/22 documented as of this encounter Additional Source Comments The information contained in this document represents components of the legal health record. It is not the complete legal health record.[facility]
--- OUTSIDE RECORDS SUMMARY | 2024-12-24 08:47 | XMS_ITS | Clinical Summary ---
Author Organization [facility] Address [address] [facility] 7t [place] [address] Care Team Providers Care Accounts Receivable Collector Name Role Phone Unavailable Primary Care Provider [...] Date Last Done Comments Depression Screening 1989 Disability Screening 1989 Alcohol/Substance Use Screening 2001 Tobacco Screening 2001 Family Planning (PISQ) 2004 HPV Vaccines (1 - 3-dose series) 2004 DTaP/Tdap/Td Vaccines (1 - Tdap) 2008 Hepatitis B Vaccines (1 of 3 - 19+ 3-dose series) 2008 Pap Smear 2010 Cervical Cancer Screening 07/29/2019 HPV/Cotest 07/29/2019 COVID-19 Vaccine (1 - 2023-2 5 season) 2023 Influenza Vaccine (#1) 2024 Zoster Vaccines (1 of 2) 07/29/2039 RSV [...] patient's age to complete this topic Meningococcal B Vaccine Aged Out No l onger eligible based on patient's age to complete this topic Meningococcal Vaccine Aged Out No gary melva eligible based on patient's age to complete this topic Pneumococcal Vaccine: Pediat rics (0 to 5 Years) and At-Risk Patients (6 to 49) Years Aged Out No longer eligible b ased on patient's age to complete this topic RSV under 20 months Aged Out No longe r eligible based on patient's age to complete this topic Rotavirus Vaccines Aged Out No longer eligible based on patient's age to complete this topic
--- OUTSIDE RECORDS SUMMARY | 2024-12-24 08:47 | XMS_ITS | Encounter Summary ---
Author Organization [facility] Address [address] [email or web address] [address] [place] [phone] Phone Care Team Providers Care Cashier Payments Received Name Role Phone Alberta Rosales MD Primary Care Provider Neena Blanton CNM Unavailable Encounter Details Date Type Department Care Team (Latest Contact Info) Description 07/22/2022 Ancillary Orders [facility] [address] [place], [place] [id number] Neena Blanton CNM 22 [facility], [address] [place] [phone] [email or web address] Preexisting diabetes complicating , antepartum Social History Tobacco Use Types Packs/Day Years Used Date Smoking Tobacco: Never Smokeless Tobacco: Never Alcohol Use Standard Drinks/Week Comments No 0 (1 standard drink = 0.6 oz pur e alcohol) Comments Yes Sex and Gender Information Value Date Recorded [...] on file documented as of this encounter Results * US OB GREATER THAN OR EQUAL TO 14 WEEKS FOLLOW-UP ONLY (07/22/2022 3:12 PM EDT) Anatomical Region Laterality Modality Abdomen, Pelvis, Uterus/Adnexa U ltrasound 07/22/2022 3:13 PM EDT Impressions 07/22/2022 3:15 PM EDT Reassuring early ultrasound, though limited by gestational age. Level 2 detailed anatomical survey is recommended at 20 weeks. KI Narrative 07/22/2022 3:15 PM EDT Requester: NEENA BLANTON TECHNIQUE: US OB GREATER THAN OR EQUAL TO 14 WEEKS FOLLOW-UP ONLY INDICATION: Medication exposure, BMI Examination of the uterus reveals a single active fetus in variable lie. The placenta is anterior. The heart rate and the amniotic fluid volume appear normal. No abnormalities were detected; however, a complete structural survey was not possible due to early gestational age. The cervix measures > 3 cm in length without funneling. No adnexal masses were seen. Biometry is consistent with 16 weeks and 4 days, based on established clinical dates, with an EDC of January 02, 2023. Procedure Note Brandy Fulton MD, MPH - 07/22/2022 Requester: NEENA BLANTON TECHNIQUE: US OB GREATER THAN OR EQUAL TO 14 WEEKS FOLLOW-UP ONLY INDICATION: Medication exposure, BMI Examination of the uterus reveals a single active fetus in variable lie.The placenta is anterior. The heart rate and the amniotic fluidvolume appear normal. No abnormalities were detected; however, acomplete structural survey was not possible due to early gestationalage. The cervix measures > 3 cm in length without funneling. No adnexalmasses were seen. Biometry is consistent with 16 weeks and 4 days, based on establishedclinical dates, with an EDC of January 02, 2023. IMPRESSION: Reassuring early ultrasound, though limited by gestational age. Level 2detailed anatomical survey is recommended at 20 weeks. KI Neena Blanton CN IMG US OBSTETRIC Final Result documented in this encounter Visit Diagnoses Diagnosis Preexisting diabetes complicating , antepartum Preexisting diabetes complicating , antepartum documented in this encounter Additional Health Concerns Infection Onset Date Last Indicated Resolved Time CoV-Risk 12/27/2022 12/27/2022 01/07/2023 1:22 AM EDT documented as of this encounter Care Teams Cashier Payments Received Relationship Specialty Start Date End Date Alberta Rosales MD [facility] [place] [address] PCP - General Internal Medicine 05/03/20 Neena Blanton CNM 22 [facility], [address] [place] [address] [email or web address] Obstetrics and Gynecology 08/21/22 documented as of this encounter Additional Source Comments The information contained in this document represents components of the legal health record. It is not the complete legal health record.[facility]
--- OUTSIDE RECORDS SUMMARY | 2024-12-24 08:47 | XMS_ITS | Encounter Summary ---
Author Organization [facility] Address [facility] [address] [place] [address] Phone Care Team Providers Care Investment Strategist Name Role Phone Alberta Rosales MD Primary Care Provider Neena Blanton CNAshley Unavailable Encounter Details Date Type Department Care Team (Late st Contact Info) Description 12/11/2022 Transcribe Orders [facility] Specimen Processing [address] [place] [address] Alberta Rosales MD [facility] [place] [address] Social History Tobacco Use Types Packs/Day Years [...] with a working camera? 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 Wish to be (Past 1 Month) No 023 2:32 PM EDT Oniel Lambert, DEAN 2. Non-Specific Active Suici patricia Thoughts (Past 1 Month) No 12/12/2022 2:32 PM EDT Francisca Lambert, RN 6. Suicidal Behavior (Lifetime) No 2:32 PM EDT Oniel Lambert, DEAN documented as of this encounter Plan of Treatment Not on file documented as of this encounter Visit Diagnoses Not on filedocumented in this encounter Additional Health Concerns Infection Onset Date Last Indicated Resolved Time CoV-Risk 12/27/2022 12/27/2022 01/07/2023 1:22 AM EDT documented as of this encounter Care Teams Investment Strategist Relationship Specialty Start Date End Date Alberta Rosales MD [address] [facility] [place] [address] PCP - General Internal Medicine 05/03/20 Neena Blanton CNM 22 [facility], [facility] [address] [place] [address] [email or web address] Obstetrics and Gynecology 08/21/22 documented as of this encounter Additional Source Comments The information contained in this document represents components of the legal health record. It is not the complete legal health record.[facility]
[2024-12-24 09:25] LABS: Hemoglobin A1C 164.1353 umol/L; Total Hemoglobin (HGBA1C) 3349.1036 umol/L
[2024-12-24 09:44] LABS: Alanine Aminotransferase 40 U/L (0-31); Anion Gap 11 (12-20); Aspartate Amino Transferase 29 U/L (5-31); Blood Urea Nitrogen 8 mg/dL (9-16); Calcium 8.9 mg/dL (8.4-10.2); Carbon Dioxide 24 mmol/L (22-29); Chloride 107 mmol/L (96-108); Cholesterol 121 mg/dL (<200); Estimated Glomerular Filt Rate > 60; HDL Cholesterol 35 mg/dL (>40); Potassium 3.9 mmol/L (3.3-5.1); Sodium 138 mmol/L (135-145); Triglycerides 120 mg/dL (<150)
== END 2024-12-24 08:21 | disposition home or self-care (01) ==
LOC: HO.LAB 08:20
PROVIDERS: PCP Internal Medicine; Visit Provider Internal Medicine
DX: E11.29 Type 2 diabetes mellitus with other diabetic kidney complication (principal); E78.5 Hyperlipidemia, unspecified; R80.9 Proteinuria, unspecified; E66.01 Morbid (severe) obesity due to excess calories; Z68.39 Body mass index [BMI] 39.0-39.9, adult
CPT/HCPCS: 36415; 80048; 80061; 83036; 84450; 84460

== ENCOUNTER 2024-12-31 08:59 | Outpatient (AMB) | payer OTHER, SELFPAY ==
--- NOTE | 2024-12-31 08:57 | MHC.PC.OV ---
Intake Visit Reasons: f/u reschedule Allergies lisinopril Adverse Reaction (Verified 12/31/24 09:33) Cough Medication List - Last Reconciled 12/31/24 by Alberta Rosales MD atorvastatin 10 mg PO DAILY cholecalciferol (vitamin D3) 50 mcg PO DAILY losartan 25 mg PO DAILY metformin 1,000 mg PO BIDWMEAL 3 months pyridoxine (vitamin B6) 100 mg PO DAILY 90 days Tobacco use date assessed: 12/31/24 Dental Screening Dental Screen Date: 12/31/24 Did you have a dental visit in the last 12 months?: Yes Did you have a dental problem in the last 6 months where you did not have access to dental care?: Yes Was dental information given to patient?: Patient has dentist HPI f/u reschedule HPI Details The patient is a 34-year-old female presenting today via telehealth for follow-up on her Type 2 Diabetes Mellitus management. Her blood glucose levels were previously well-controlled with Ozempic, but insurance coverage issues have led to discontinuation of the medication, PE was sent and was denied. Last dose of Ozempic was in November 2024. There was an increase in HbA1c from 6.4% to 6.6%, and fasting glucose levels have risen to 167 mg/dL, noted on recent labs done. Urine microalbuminuria is within normal limits Vitamin D deficiency was identified, with a last level of 29.6 ng/mL, prompting a recommendation to increase supplementation to 2000 units daily. Fasting lipids are within normal limits except for low HDL cholesterol, currently on atorvastatin 10 mg daily. Complains of occasional tingling in fingers of both hands, Up-to-date with her diabetes retinopathy screening, [facility] [place], patient will request copy of most recent diabetes eye screening, has an appointment already scheduled to see them back in February 2025 [facility] Medical History Diabetes mellitus, without long-term current use of insulin HTN (hypertension) Vitamin D deficiency Cough due to SINDHU inhibitor Right nephrolithiasis Ureterolithiasis Obesity Dyslipidemia Surgical History History of tubal ligation History of laparoscopic appendectomy Family History Father Unknown family medical history Mother Diabetes mellitus Sister No problems noted. Son No problems noted. Daughter No problems noted. 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 1. Little interest or pleasure in doing things: not at all 2. Feeling down, depressed, or hopeless: not at all 3. Trouble falling or staying asleep, or sleeping too much: not at all 4. Feeling tired or having little energy: not at all 5. Poor appetite or overeating: not at all 6. Feeling bad about yourself - or that you are a failure or have let yourself or your family down: not at all 7. Trouble concentrating on things, such as reading the newspaper or watching television: not at all 8. Moving or speaking so slowly that other people could have noticed. Or the opposite - being so fidgety or restless that you have been moving around a lot more than usual: not at all 9. Thoughts that you would be better off or of hurting yourself in some way: not at all Total score: 0 Depression Screening Interpretation: Negative Depression Screening Done: Yes Source: Developed by Drs. Juan Baker, Yessica Lam, Lexa Sheriff and colleagues, with an educational agnieszka from [employer] Thrive Questionnaire Date Thrive assessed: 06/29/24 AUDIT C Alcohol Use Questionnaire (AUDIT-C) 3. How often do you have six or more drinks on one occasion?: Never Total Score: 0 ANDRESSA-7 AMB Questionnaire ANDRESSA-7 Date ANDRESSA - 7 assessed: 06/29/24 Feeling nervous, anxious, or on edge: 0 = Not at all Not being able to stop or control worryin = Not at all Worrying too much about different things: 0 = Not at all Trouble relaxin = Not at all Being so restless that it is hard to sit still: 0 = Not at all Becoming easily annoyed or irritable: 0 = Not at all Feeling afraid as if something awful might happen: 0 = Not at all Total ANDRESSA-7 score (0-4 normal; 5-9 mild; 10-14 moderate; 15-21 severe): 0 Source: Developed by Drs. Juan Baker, Yessica Lam, Lexa Sheriff and colleagues, with an educational agnieszka from [employer] Review of Systems Const Reports as per HPI Eyes Reports no additional complaints ENT Reports no additional complaints Card Reports no additional complaints Resp Reports no additional complaints GI Reports no additional complaints Reports no additional complaints and Reports as per HPI Musc Reports no additional complaints Neuro Reports no additional complaints Psych Reports no additional complaints Endo Reports no additional complaints Walter/Lymph Reports no additional complaints Aller/Immun Reports no additional complaints Physical exam (Primary Care) Tobacco/Smoking Status: Tobacco use Status Tobacco use date assessed 12/31/24 12/31/24 08:59 Patient Tobacco Use Status Never used Tobacco 12/31/24 08:59 e-Cigarette/Vaping Use Never Used 12/31/24 08:59 PHQ-9: PHQ-9 Score PHQ-9: Total score 0 12/31/24 08:59 Depression Screening Interpretation: Negative Thrive Assessment: Date of Thrive Assessment Date Thrive assessed 06/29/24 12/31/24 08:59 Telehealth Telehealth Telehealth Platform: [facility] Location of provider rendering services: practice address Location of patient: address on file Patient Identification confirmed using: Name, : Yes Telehealth method: video Patient verbally consented to treatment: Yes Patient verbally consented to billing insurance company: Yes Patient informed of any privacy concerns related to visit: Yes Minutes spent on Phone/Video with Pt.: 15 Results Reviewed Results Reviewed: Laboratory Tests 06/29/24 12/24/24 06:25 08:33 Estimat Average Glucose 143 Hemoglobin A1c % 6.6 H Microalb/Creat Ratio 14.8 Name: Arnold Mayorga Age/Sex: 34/F : 1990 Unit#: [id number] Attend Dr: Alberta Rosales MD Re12/24/24 Status: DEP REF [facility] Disch: SPEC : [id number] MARY: 12/24/24 STATUS: COMP REQ : [id number] RECD: 12/24/24 [facility] DR: Alberta Rosales MD COMP: 12/24/24 ENTERED: 12/24/[address] [facility] [address]: ORDERED: Met Prof Fast, AST, ALT, Lipid Panel Test Result Flag Reference Sodium 138 135-145 mmol/L Potassium 3.9 3.3-5.1 mmol/L CL 107 96-108 mmol/L CO2 24 22-29 mmol/L Gap 11 L 12-20 BUN 8 L 9-16 mg/dL Creat 0.57 0.5-1.4 mg/dL eGFR > 60 Chronic Kidney Disease: Estimated GFR < 60 mL/min/1.73m2 Severe Kidney Disease: Estimated GFR < 15 mL/min/1.73m2 FBS 167 H 60-99 mg/dL A fasting glucose of 126 mg/dl or greater on more than one occasion is considered diagnostic of diabetes. CA 8.9 8.4-10.2 mg/dL AST (GOT) 29 5-31 U/L ALT (GPT) 40 H 0-31 U/L Triglyceride 120 <150 mg/dL Desirable Triglyceride: less than 150 mg/dL Borderline High Triglyceride 150-199 mg/dL High Triglyceride: 200-499 mg/dL Very High Triglyceride: greater than or equal to 5OO mg/dL Cholesterol 121 <200 mg/dL Desirable Cholesterol: less than 200 mg/dL Borderline High Cholesterol: 200-239 mg/dL High Cholesterol: greater than 239 mg/dL LDL Calculated 62 <100 mg/dL Desirable LDL: less than 100 mg/dL Near Optimal/Above Optimal LDL: 110-129 mg/dL Borderline High LDL: 130-159 mg/dL High LDL: 160-189 mg/dL Very High LDL: greater than or equal to 190 mg/dL HDL 35 L >40 mg/dL Desirable HDL: greater than 40 mg/dL Note: This HDL assay may give artificially low results in patients with liver disease. Coding Level of Care Code Tele Est Pt Level 4 (66607) Complex EM visit Add On G2211 Diagnoses Diabetes mellitus, without long-term current use of insulin E11.9 Dyslipidemia E78.5 Class 2 severe obesity due to excess calories with serious comorbidity and body mass index (BMI) of 39.0 to 39.9 in adult E66.01; Z68.39 Body mass index: BMI 39.0-39.9 Obesity classification: adult class 2 (BMI 35 - 39.9) Obesity type: due to excess calories Serious obesity comorbidity presence: with serious comorbidity Primary hypertension I10 Hypertension type: primary hypertension Vitamin D deficiency E55.9 Assessment & Plan Assessment & Plan (1) Diabetes mellitus, without long-term current use of insulin: Code(s): E11.9 - Type 2 diabetes mellitus without complications Category: Medical Plan: Recent lab results reviewed with patient, with sugar and hemoglobin A1c higher than last check now with a hemoglobin A1c at 6.6%. Has been off Ozempic now for the last 8 weeks, insurance denied prescription. Will switch to Mounjaro 2.5 mg injected once a week. Continued on metformin a 1000 mg twice a day with food. continue to check fasting blood sugar at home, maintain log and bring to next appointment for review. Reinforced diabetic diet and regular exercise with patient. Counseled regarding importance of yearly diabetes retinopathy screening. Patient advised to inspect feet daily, for any signs of injury, callus or infection. Compliance with diet and regular exercise again stressed. Blood pressure goal is less than 130/80, goal LDL is less than 100 and goal hemoglobin A1c is less than 7% follow-up appointment made in-3--months, after fasting labs done. (2) Dyslipidemia: Code(s): E78.5 - Hyperlipidemia, unspecified Category: Medical Plan: Continued on atorvastatin 10 mg daily, reinforced importance of following healthy eating habits and do at least 15 minutes of moderate intensity exercise daily to help raise good cholesterol levels. (3) Obesity: Code(s): E66.9 - Obesity, unspecified Category: Medical Qualifiers: Body mass index: BMI 39.0-39.9 Obesity classification: adult class 2 (BMI 35 - 39.9) Obesity type: due to excess calories Serious obesity comorbidity presence: with serious comorbidity Qualified Code(s): E66.01 - Morbid (severe) obesity due to excess calories; Z68.39 - Body mass index [BMI] 39.0-39.9, adult Plan: Started again on GLP 1 agonist, this time prescription sent for Mounjaro 2.5 mg injected subcutaneously once a week. Combined this with adherence to healthy eating habits and regular exercise. Will see her back for follow-up in 3 months after fasting labs done (4) HTN (hypertension): Code(s): I10 - Essential (primary) hypertension Category: Medical Qualifiers: Hypertension type: primary hypertension Qualified Code(s): I10 - Essential (primary) hypertension Plan: Continued on losartan 25 mg daily (5) Vitamin D deficiency: Code(s): E55.9 - Vitamin D deficiency, unspecified Category: Medical Plan: Take vitamin D3 2000 units daily, repeat levels again in 3 months Orders: Orders Hemoglobin A1c 03/21/25 E11.9 - Type 2 diabetes mellitus without complications, E55.9 - Vitamin D deficiency, unspecified, E78.5 - Hyperlipidemia, unspecified, I10 - Essential (primary) hypertension Comprehensive [place]. Panel Fast 03/21/25 E11.9 - Type 2 diabetes mellitus without complications, E55.9 - Vitamin D deficiency, unspecified, E78.5 - Hyperlipidemia, unspecified, I10 - Essential (primary) hypertension Lipid Panel 03/21/25 E11.9 - Type 2 diabetes mellitus without complications, E55.9 - Vitamin D deficiency, unspecified, E78.5 - Hyperlipidemia, unspecified, I10 - Essential (primary) hypertension Vitamin D 25-OH Total 03/21/25 E11.9 - Type 2 diabetes mellitus without complications, E55.9 - Vitamin D deficiency, unspecified, E78.5 - Hyperlipidemia, unspecified, I10 - Essential (primary) hypertension Medications: New tirzepatide (Mounjaro) 2.5 mg (0.5 mL) subcut QWEEK 2 mL 5RF E11.29 - Type 2 diabetes mellitus with other diabetic kidney complication, E66.01 - Morbid (severe) obesity due to excess calories, E78.5 - Hyperlipidemia, unspecified, I10 - Essential (primary) hypertension, R80.9 - Proteinuria, unspecified, Z68.39 - Body mass index [BMI] 39.0-39.9, adult
--- OUTSIDE RECORDS SUMMARY | 2024-12-31 09:49 | XMS_ITS | Encounter Summary ---
Author Organization [email or web address] [facility] Address [address] [place] [address] 7 [place] [address] Care Team Providers Care Baster Hand Name Role Phone Unavailable Primary Care Provider Unavailabl e Encounter Details Date Type Department Care Team (Latest Contact Info) Description 09/18/2018 Abstract [facility] CONVERSIONS Dental, Provider, DDS Social History [...]
--- OUTSIDE RECORDS SUMMARY | 2024-12-31 09:49 | XMS_ITS | Clinical Summary ---
Author Organization [facility] Address [facility] [employer] [facility] [address] [place] [phone] Phone Care Team Providers Care Cleaner And Trimmer Name Role Phone Alberta Rosales MD Primary [...] return to office as needed for routine REGIONAL ECONOMIST care Encounter for induction of labor 12/25/2022 [...] need for pediatric cardiology involvement, unless the upper extremity surgeon should have concerns, in which case I would ask for a follow-up visit with the baby. Assessment & Plan (12/19/2022 10:14 PM EDT): Review of records found note from Dr Draper 12/04- Dr Draper Plan Testing: No further cardiac testing needed. Medication/Intervention: No cardiac medication/intervention needed. Follow-up: No need for pediatric cardiology involvement, unless the upper extremity surgeon should have concerns, in which case I would ask for a follow-up visit with the baby. This was found after visit and will be relayed to the patient Assessment & Plan (12/05/2022 6:24 PM EDT): Will plan for EKG and follow up with 6-8wks after . Assessment & Plan (12/04/2022 7:57 AM EDT): Fidelina was seen at [facility] over the weekend for decreased movement and [...] Recently came back from a trip to [facility], which was great. She found it harder [...] is traveling with her whole family to [facility] for two weeks soon. 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 She is 11 weeks gestation with [...] EST) SODIUM 137 133 - 146 mmol/L [facility] POTASSIUM 3.6 3.3 - 5.1 mmol/L [facility] CHLORIDE 103 96 - 108 mmol/L [facility] CO2 22 21 - 35 mmol/L [facility] BUN 4(L) 6 - 19 mg/dL [facility] CREATININE 0.40(L) 0.5 - 1.5 mg/dL [facility] GLUCOSE 66(L) 70 - 99 mg/dL [facility] ALBUMIN 3.9 3.9 - 4.8 g/dL [facility] TOTAL PROTEIN 7.3 6.5 - 8.0 g/dL [facility] CALCIUM 9.0 8.4 - 10.3 mg/dL [facility] ALKALINE PHOSPHATASE 59 39 - 117 U/L [facility] TOTAL BILIRUBIN 0.3 0.0 - 1.2 mg/dL [facility] AST 21 0 - 37 U/L [facility] ALT 17 0 - 40 U/L [facility] GLOBULIN 3.4 1 - 4.8 g/dL [facility] EGFR >120 >59 mL/min/1.7 3m2 [facility] Comment:Estimated glomerular filtration rate calculated using the CKD-EPI refit equation. ANION GAP 16 10 - 20 mmol/L [facility] Blood 06/25/2022 2:58 PM EST 06/25/2022 3:12 PM EST Padmini Colbert MD LAB BLOOD ORDERABLES Final Result [facility] [address] [place] [address] * Hepatitis C antibody, qualitative (06/25/2022 2:58 PM EST) HCV NON-REACTIV E NON-REACTI VE [facility] Blood 06/25/2022 2:58 PM EST 06/25/2022 3:12 PM EST Padmini Colbert MD LAB BLOOD ORDERABLES Final Result [address] [address] * (ABNORMAL) Hemoglobin A1c (06/25/2022 2:58 PM EST) HEMOGLOBIN A1C 5.9(H) 4.3 - 5.8 % [facility] Blood 06/25/2022 2:58 PM EST 06/25/2022 3:12 PM EST Padmini Colbert MD LAB BLOOD ORDERABLES Final Result Performing Organization Address City/[facility]/ZIP Co de Phone Number [address] [address] * Pap Smear (08/24/2020 12:00 AM EDT) 08/24/2020 08/25/2020 8:5 7 AM EDT Narrative SEE NARRATIVE - 08/31/2020 10:06 AM EDT [address] [address] Recruiting Coordinator: Francesca Vaughan MD REGIONAL ECONOMIST Cytology Report FINAL DIAGNOSIS A. PAP SMEAR [...] 56, 58, 59, 66, 68) by [place] On[employer] HR-HPV analysis. Clinical correlation is advised. This HPV test was performed at [facility], [address] [place] [address]. This test has been FDA approved for [facility] cervical cytology specimens. The accuracy and precision of this test for all other specimen sources has been verified in the Cytopathology Laboratory of the [facility] and has not been cleared or approved by the U.S. Food and Drug Administration. Clinical correlation is advised. CLINICAL HISTORY Date of Last Menstrual Period: Not Provided Menstrual History: Unknown Other Clinical Conditions: Screening Pap SPECIMEN SOURCE A: PAP SMEAR (SUREPATH) CE Patient Name: JELLYAlannah FIDELINA RODRÍGUEZ RAI : 1990 (Age: 30) Sex: F Institution: [facility] Location: [facility] Date of Collection: 08/24/2020 Date of Reported: 08/31/2020 10:07 Results to: Magui Hoang MD Magui Hoang MD CYTOLOGY ORDERABLES Final Result SEE NARRATIVE from Last 3 Months or Most Recently Relevant to Health Maintenance Insurance [employer] [address] [address] [employer] [facility] Advance Directives For more information, please contact: [phone] (9AM - 5PM [facility], Friday-Friday) Documents on File Type Date Recorded Patient Entertainment & Media Correspondent Expl anation Healthcare Proxy 12/30/2022 4:59 PM [...] 9:39 AM 10/03/2018 11:49 AM Care Teams Cleaner And Trimmer Relationship Specialty Start Date End Date Alberta Rosales MD [facility] [place] [address] PCP - General Internal Medicine 05/03/20 Neena Blanton CNM 22 [facility], [address] [address] [email or web address] Obstetrics and Gynecology 08/21/22 Additional Source Comments The information contained in this document represents components of the legal health record. It is not the complete legal health record.[facility]
--- OUTSIDE RECORDS SUMMARY | 2024-12-31 09:49 | XMS_ITS | Encounter Summary ---
Author Organization [facility] Address [facility] [address] [place] [address] Phone Care Team Providers Care Bomb Technician Name Role Phone Alberta Rosales MD Primary Care Provider Neena Blanton CNAshley Unavailable Encounter Details Date Type Department Care Team (Late st Contact Info) Description 12/11/2022 Transcribe Orders [facility] Specimen Processing [address] [place] [address] Alberta Rosales MD [facility] [place] [address] Social History Tobacco Use Types Packs/Day Years [...] 2:32 PM EDT Oniel Lambert, DEAN * [place] Suicide Severity Rating Scale (Screener/Recent Self-Report) Question [...] documented as of this encounter Care Teams Bomb Technician Relationship Specialty Start Date End Date Alberta Rosales MD [address] [place] [address] PCP - General Internal Medicine 05/03/20 Neena Blanton CNM 22 [facility], [facility] [address] [place] [address] [email or web address] Obstetrics and Gynecology 08/21/22 documented as of this encounter Additional Source Comments The information contained in this document represents components of the legal health record. It is not the complete legal health record.[facility]
--- OUTSIDE RECORDS SUMMARY | 2024-12-31 09:49 | XMS_ITS | Encounter Summary ---
Author Organization [facility] Address [address] [employer] [address] [place] [address] Phone Care Team Providers Care Incident Response Manager Name Role Phone Alberta Rosales MD Primary Care Provider Neena Blanton CNM Unavailable Encounter Details Date Type Department Care Team (Latest Contact Info) Description 07/22/2022 Ancillary Orders [facility] [address] [place], [place] [id number] Neena Blanton CNM 22 [facility], [address] [place] [address] [email or web address] Preexisting diabetes complicating , antepartum Social History [...] documented as of this encounter Care Teams Incident Response Manager Relationship Specialty Start Date End Date Alberta Rosales MD [facility] [place] [address] PCP - General Internal Medicine 05/03/20 Neena Blanton CNM 22 [facility], [address] [place] [address] [email or web address] Obstetrics and Gynecology 08/21/22 documented as of this encounter Additional Source Comments The information contained in this document represents components of the legal health record. It is not the complete legal health record.[facility]
--- OUTSIDE RECORDS SUMMARY | 2024-12-31 09:49 | XMS_ITS | Clinical Summary ---
Author Organization [employer] Address [address] [facility] [address]t [place] [address] Care Team Providers Care Bmet Name Role Phone Unavailable Primary Care Provider [...] 07/29/2019 HPV/Cotest 07/29/2019 COVID-19 Vaccine (1 - 4-2 5 season) 2024 Influenza Vaccine (#1) 2024 Zoster Vaccines (1 [...]
--- OUTSIDE RECORDS SUMMARY | 2024-12-31 09:49 | XMS_ITS | Encounter Summary ---
Author Organization [facility] Address formerly [facility] [address] [place] [address] Phone Care Team Providers Care Vice President Supply Chain Name Role Phone Alberta Rosales MD Primary Care Provider Neena Blanton CNM Unavailable Encounter Details Date Type Department Care Team (Late st Contact Info) Description 12/28/2022 Procedure Pass OR Admitting Dept - Virtual Department [address] [place] [address] Social History Tobacco Use Types Packs/Day Years [...] documented as of this encounter Care Teams Vice President Supply Chain Relationship Specialty Start Date End Date Alberta Rosales MD [facility] [place] [address] PCP - General Internal Medicine 05/03/20 Neena Blanton CNM 22 [facility], [facility] [address] [place] [address] [email or web address] Obstetrics and Gynecology 08/21/22 documented as of this encounter Additional Source Comments The information contained in this document represents components of the legal health record. It is not the complete legal health record.[facility]
== END 2024-12-31 15:30 | disposition home or self-care (01) ==
LOC: HO.HMCC 08:59
PROVIDERS: PCP Internal Medicine; Visit Provider Internal Medicine
DX: E11.9 Type 2 diabetes mellitus without complications (principal); E78.5 Hyperlipidemia, unspecified; E66.01 Morbid (severe) obesity due to excess calories; Z68.39 Body mass index [BMI] 39.0-39.9, adult; I10 Essential (primary) hypertension; E55.9 Vitamin D deficiency, unspecified

== ENCOUNTER 2025-02-02 08:09 | Outpatient (AMB) | payer OTHER, SELFPAY ==
--- NOTE | 2025-02-02 08:17 | MHC.OFFVIS ---
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 Collaborative Teacher concerns: she reports occasional pain on left side of umbilical scar. Regular monthly menses. Currently is sexually active. She denies vaginal itching or irritation. STI screening offered; she declines. She tries to eat healthy and stays active with exercise. Denies family history of breast, ovarian or colon cancer. Last pap smear 2023, negative. [facility] Medical History (Updated 02/02/25 @ 08:48 by Caro Szymanski CNM) Encounter for well woman exam with routine gynecological exam Vitamin D deficiency Diabetes mellitus, without long-term current use of insulin HTN (hypertension) Cough due to SINDHU inhibitor Right nephrolithiasis Ureterolithiasis Obesity Dyslipidemia Surgical History History of tubal ligation History of laparoscopic appendectomy Family History Father Unknown family medical history Mother Diabetes mellitus Sister No problems noted. Son No problems noted. Daughter No problems noted. 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 needs: No Hearing needs: No Vision needs: Yes Female Reproductive History Menstrual Duration of menses: 3-5 days Date of last menstrual period: 01/23/25 control method: permanent sterilization Permanent Sterilization: BTL Total pregnancies: 3 Full term: 3 Number of Living Children: 3 Date of last pap smear: 01/23/24 (neg pap and hpv) Review of Systems Const All systems reviewed & are unremarkable except as noted in HPI and below Reports as per HPI Eyes Reports no additional complaints ENT Reports no additional complaints Card Reports no additional complaints Resp Reports no additional complaints GI Reports as per HPI and Reports no additional complaints Reports as per HPI Musc Reports no additional complaints Skin/Breast Reports as per HPI Neuro Reports no additional complaints Psych Reports no additional complaints Endo Reports no additional complaints Walter/Lymph Reports no additional complaints Aller/Immun Reports no additional complaints Physical Exam Vital Signs: Last Vital Signs BP 100/60 02/02/25 08:18 BMI result Body Mass Index 37.9 Const General: cooperative, healthy appearing, no acute distress, well developed and alert Orientation/consciousness: patient oriented x3 HEENT Head: Yes normal to inspection Eyes General: appearance normal, both eyes and all related structures Neck Neck: Yes normal visual inspection Thyroid: Thyroid normal Chest Chest palpation & inspection: normal inspection of the chest and other (no puckering, dimpling, peau de orange, retraction, discharge, masses) Breast/axilla inspection: normal inspection of the breasts Breast/axilla palpation: normal palpation of the breasts Resp Effort & Inspection: normal respiratory effort GI Inspection: Yes normal to inspection and Yes scar (Nontender) Palpation (GI): Soft to palpation Rectal Exam - Female: deferred General: Yes bladder normal to palpation External Female Exam: normal external appearance and normal appearance of the urethra Speculum Exam - Vagina: normal appearance of the vagina, normal palpation and normal vaginal discharge Speculum Exam - Cervix: normal appearance of the cervix and normal palpation Bimanual exam- vagina & uterus: normal bimanual exam, normal palpation, uterine size normal, bladder normal to palpation, normal palpation and non-tender Bimanual Exam- Adnexa, other: no masses Skin General skin exam: no rashes or lesions noted Rashes: no rashes Neuro General: patient oriented x3 Cognition (Neuro): normal cognition Extrem General: Yes normal to inspection Psych Attitude: cooperative Thought process: Normal thought process present Assessment & Plan Assessment & Plan (1) Encounter for well woman exam with routine gynecological exam: Code(s): Z01.419 - Encounter for gynecological examination (general) (routine) without abnormal findings Category: Medical Plan Discussed: Current recommendations for pap smears per ASCCP guidelines. Breast awareness and periodic breast exams. Maintain a healthy lifestyle including a well balanced diet and routine exercise. Follow up with PCP for any periumbilical pain. Reviewed perimenopausal symptoms and changes. Monitor menstrual cycles, report any unscheduled bleeding, bleeding episodes <24 days apart or heavy/prolonged menstrual bleeding. Call the office for a follow up for any concerns. Patient verbalizes understanding and agrees to the plan of care. She was given opportunity to ask questions and all questions were answered to the best of my ability. 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 This note is constructed using voice recognition software. While every effort has been made to ensure accuracy, heating engineer errors may have been included. Coding Level of Care Code Est Pt Prev Care 18-39y(86294) Diagnoses Encounter for well woman exam with routine gynecological exam Z01.419
[2025-02-02 08:18] VITALS: BP 100/60; BMI 37.9
--- OUTSIDE RECORDS SUMMARY | 2025-02-02 08:22 | XMS_ITS | Clinical Summary ---
Author Organization [facility] Address [facility] [address] [place] [address] Phone Care Team Providers Care Manager Distribution Center Name Role Phone Alberta Rosales MD Primary [...] return to office as needed for routine LAW INSTRUCTOR care Encounter for induction of labor 12/25/2022 [...] need for pediatric cardiology involvement, unless the tunnel kiln firer should have concerns, in which case I would ask for a follow-up visit with the baby. Assessment & Plan (12/19/2022 10:14 PM EDT): Review of records found note from Dr Draper 12/04- Dr Draper Plan Testing: No further cardiac testing needed. Medication/Intervention: No cardiac medication/intervention needed. Follow-up: No need for pediatric cardiology involvement, unless the tunnel kiln firer should have concerns, in which case I would ask for a follow-up visit with the baby. This was found after visit and will be relayed to the patient Assessment & Plan (12/05/2022 6:24 PM EDT): Will plan for EKG and follow up with 6-8wks after . Assessment & Plan (12/04/2022 7:57 AM EDT): Fidelina was seen at [facility] over the weekend for decreased [...] Recently came back from a trip to [place], which was great. She found it harder [...] is traveling with her whole family to [place] for two weeks soon. Obesity affecting in [...] started 06/25/22 - Referral to MIRIAM or outside installer apprentice - met with MIRIAM 06/13/22 and is [...] off early and we discussed calling the [employer], adjusted time in range target to be [...] [facility] She is 11 weeks gestation with pre-existing [...] EST) SODIUM 137 133 - 146 mmol/L [facility] POTASSIUM 3.6 3.3 - 5.1 mmol/L [facility] CHLORIDE 103 96 - 108 mmol/L [facility] CO2 22 21 - 35 mmol/L [facility] BUN 4(L) 6 - 19 mg/dL [facility] CREATININE 0.40(L) 0.5 - 1.5 mg/dL [facility] GLUCOSE 66(L) 70 - 99 mg/dL [facility] ALBUMIN 3.9 3.9 - 4.8 g/dL [facility] TOTAL PROTEIN 7.3 6.5 - 8.0 g/dL [facility] CALCIUM 9.0 8.4 - 10.3 mg/dL [facility] ALKALINE PHOSPHATASE 59 39 - 117 U/L [facility] TOTAL BILIRUBIN 0.3 0.0 - 1.2 mg/dL [facility] AST 21 0 - 37 U/L [facility] ALT 17 0 - 40 U/L [facility] GLOBULIN 3.4 1 - 4.8 g/dL [facility] EGFR >120 >59 mL/min/1.7 3m2 [facility] Comment:Estimated glomerular filtration rate calculated using the CKD-EPI refit equation. ANION GAP 16 10 - 20 mmol/L [facility] Blood 06/25/2022 2:58 PM EST 06/25/2022 3:12 PM EST Padmini Colbert MD LAB BLOOD ORDERABLES Final Result [facility] [address] [place] [address] * Hepatitis C antibody, qualitative (06/25/2022 2:58 PM EST) HCV NON-REACTIV E NON-REACTI VE [facility] Blood 06/25/2022 2:58 PM EST 06/25/2022 3:12 PM EST Padmini Colbert MD LAB BLOOD ORDERABLES Final Result [address] [address] * (ABNORMAL) Hemoglobin A1c (06/25/2022 2:58 PM EST) HEMOGLOBIN A1C 5.9(H) 4.3 - 5.8 % [facility] Blood 06/25/2022 2:58 PM EST 06/25/2022 3:12 PM EST Padmini Colbert MD LAB BLOOD ORDERABLES Final Result Performing Organization Address City/[facility]/ZIP Co de Phone Number [address] [address] * Pap Smear (08/24/2020 12:00 AM EDT) 08/24/2020 08/25/2020 8:5 7 AM EDT Narrative SEE NARRATIVE - 08/31/2020 10:06 AM EDT [address] [address] Equipment Validation Specialist: Francesca Vaughan MD LAW INSTRUCTOR Cytology Report FINAL DIAGNOSIS A. PAP SMEAR (SUREPATH) CE: SPECIMEN ADEQUACY: Satisfactory for evaluation; transformation zone present. INTERPRETATION: NEGATIVE FOR INTRAEPITHELIAL LESION OR MALIGNANCY. Electronically Signed Out By: KOBE Nguyne(ASCP) The Pap test is a screening test [...] 56, 58, 59, 66, 68) by [facility] On[facility]arity HR-HPV analysis. Clinical correlation is advised. This HPV test was performed at [facility], [address] [place] [address]. This test has been FDA approved for SurePath cervical cytology specimens. The accuracy and precision of this test for all other specimen sources has been verified in the Cytopathology Laboratory of the [facility] and has not been cleared or approved by the U.S. Food and Drug Administration. Clinical correlation is advised. CLINICAL HISTORY Date of Last Menstrual Period: Not Provided Menstrual History: Unknown Other Clinical Conditions: Screening Pap SPECIMEN SOURCE A: PAP SMEAR (SUREPATH) CE Patient Name: JELLYAlannah FIDELINA RODRÍGUEZ RAI : 1990 (Age: 30) Sex: F Institution: [facility] Location: [facility] Date of Collection: 08/24/2020 Date of Reported: 08/31/2020 10:07 Results to: Magui Hoang MD Magui Hoang MD CYTOLOGY ORDERABLES Final Result SEE NARRATIVE from Last 3 Months or Most Recently Relevant to Health Maintenance Insurance [facility] [place] [address] [address] [facility] Advance Directives For more information, please contact: [phone] (9AM - 5PM [facility], Friday-Friday) Documents on File Type Date Recorded Patient Cath Lab Radiology Technician Expl anation Healthcare Proxy 12/30/2022 4:59 PM [...] 9:39 AM 10/03/2018 11:49 AM Care Teams Manager Distribution Center Relationship Specialty Start Date End Date Alberta Rosales MD [facility] [place] [address] PCP - General Internal Medicine 05/03/20 Neena Blanton CNM [address] [facility], [address] [address] [email or web address] Obstetrics and Gynecology 08/21/22 Additional Source Comments The information contained in this document represents components of the legal health record. It is not the complete legal health record.[facility]
--- OUTSIDE RECORDS SUMMARY | 2025-02-02 08:22 | XMS_ITS | Encounter Summary ---
Author Organization [facility] Address [address] [place] [address] Phone Care Team Providers Care Ward Assistant Name Role Phone Alberta Rosales MD Primary Care Provider Neena Blanton CNM Unavailable Encounter Details Date Type Department Care Team (Latest Contact Info) Description 07/22/2022 Ancillary Orders [facility] [address] [place], [place] [id number] Neena Blanton CNM 22 [facility], [address] [place] [address] [email or web address] Preexisting diabetes complicating , antepartum Social History [...] documented as of this encounter Care Teams Ward Assistant Relationship Specialty Start Date End Date Alberta Rosales MD [facility] [place] [address] PCP - General Internal Medicine 05/03/20 Neena Blanton CNM 22 [facility], [address] [place] [address] [email or web address] Obstetrics and Gynecology 08/21/22 documented as of this encounter Additional Source Comments The information contained in this document represents components of the legal health record. It is not the complete legal health record.[facility]
--- OUTSIDE RECORDS SUMMARY | 2025-02-02 08:22 | XMS_ITS | Clinical Summary ---
Author Organization [employer] Address [address] [facility] 7t [place] [address] Care Team Providers Care Robot Operator Name Role Phone Unavailable Primary Care Provider [...] COVID-19 Vaccine (1 - 2023-2 5 season) 2024 Influenza Vaccine (#1) 2024 [...]
--- OUTSIDE RECORDS SUMMARY | 2025-02-02 08:22 | XMS_ITS | Encounter Summary ---
Author Organization [facility] Address Formerly [facility] [address] [place] [address] Phone Care Team Providers Care Kids Activities Coach Name Role Phone Alberta Rosales MD Primary Care Provider Neena Blanton CNM Unavailable Encounter Details Date Type Department Care Team (Late st Contact Info) Description 12/28/2022 Procedure Pass OR Admitting Dept - Virtual Department [address] [place] [address] Social History Tobacco Use Types Packs/Day Years [...] documented as of this encounter Care Teams Kids Activities Coach Relationship Specialty Start Date End Date Alberta Rosales MD [facility] [place] [address] PCP - General Internal Medicine 05/03/20 Neena Blanton CNM 22 [facility], [facility] [address] [place] [address] [email or web address] Obstetrics and Gynecology 08/21/22 documented as of this encounter Additional Source Comments The information contained in this document represents components of the legal health record. It is not the complete legal health record.[facility]
--- OUTSIDE RECORDS SUMMARY | 2025-02-02 08:22 | XMS_ITS | Encounter Summary ---
Author Organization [facility] Address Formerly [facility] [address] [place] [address] Phone Care Team Providers Care Top Icer Name Role Phone Alberta Rosales MD Primary Care Provider Neena Blanton CNAshley Unavailable Encounter Details Date Type Department Care Team (Late st Contact Info) Description 12/11/2022 Transcribe Orders [facility] Specimen Processing [address] [place] [address] Alberta Rosales MD [facility] [address] Social History Tobacco Use Types Packs/Day Years [...] 2:32 PM EDT Oniel Lambert, DEAN * [place] Suicide Severity Rating Scale (Screener/Recent Self-Report) Question [...] documented as of this encounter Care Teams Top Icer Relationship Specialty Start Date End Date Alberta Rosales MD [address] [facility] [place] [address] PCP - General Internal Medicine 05/03/20 Neena Blanton CNM 22 [facility], [facility] [address] [place] [address] [email or web address] Obstetrics and Gynecology 08/21/22 documented as of this encounter Additional Source Comments The information contained in this document represents components of the legal health record. It is not the complete legal health record.[facility]
--- OUTSIDE RECORDS SUMMARY | 2025-02-02 08:22 | XMS_ITS | Encounter Summary ---
Author Organization [facility] Address [address] [place] [address] 7 [place] [address] Care Team Providers Care Examining Officer Name Role Phone Unavailable Primary Care Provider Unavailabl e Encounter Details Date Type Department Care Team (Latest Contact Info) Description 09/18/2018 Abstract [facility] CONVERSIONS Dental, Provider, DDS Social [...]
== END 2025-02-02 09:14 | disposition home or self-care (01) ==
LOC: HO.HWS 08:09
PROVIDERS: PCP Internal Medicine; Visit Provider Advanced Practice Midwife
DX: Z01.419 Encounter for gynecological examination (general) (routine) without abnormal findings (principal)
CPT/HCPCS: 99395; 99459

== ENCOUNTER → 2025-02-02 08:09 | Outpatient (BNVA) | payer OTHER, SELFPAY | PROVIDERS: PCP Internal Medicine; Visit Provider Advanced Practice Midwife | DX: Z01.419 Encounter for gynecological examination (general) (routine) without abnormal findings (principal) | CPT/HCPCS: 99395 ==

== ENCOUNTER 2025-02-18 08:10 | Outpatient (AMB) | payer OTHER, SELFPAY ==
--- OUTSIDE RECORDS SUMMARY | 2025-02-18 08:17 | XMS_ITS | Clinical Summary ---
Author Organization [employer] Address [address] [facility] 7t [place] [address] Care Team Providers Care Choir Accompanist Name Role Phone Unavailable Primary Care Provider [...]
--- OUTSIDE RECORDS SUMMARY | 2025-02-18 08:17 | XMS_ITS | Encounter Summary ---
Author Organization [facility] Address [facility] [address] [place] [address] Phone Care Team Providers Care Auto Clutch Rebuilder Name Role Phone Alberta Rosales MD Primary Care Provider Neena Blanton CNAshley Unavailable Encounter Details Date Type Department Care Team (Late st Contact Info) Description 12/11/2022 Transcribe Orders [facility] Specimen Processing [address] [place] [address] Alberta Rosales MD [facility] [place] [address] Social History Tobacco Use Types Packs/Day Years [...] 2:32 PM EDT Oniel Lambert, DEAN * [place] Suicide Severity Rating Scale (Screener/Recent Self-Report) Question [...] documented as of this encounter Care Teams Auto Clutch Rebuilder Relationship Specialty Start Date End Date Alberta Rosales MD [address] [facility] [place] [address] PCP - General Internal Medicine 05/03/20 Neena Blanton CNM 22 [facility], [facility] [address] [place] [address] [email or web address] Obstetrics and Gynecology 08/21/22 documented as of this encounter Additional Source Comments The information contained in this document represents components of the legal health record. It is not the complete legal health record.[facility]"
--- OUTSIDE RECORDS SUMMARY | 2025-02-18 08:17 | XMS_ITS | Encounter Summary ---
Author Organization [facility] Address [facility]ly [facility] [address] [place] [address] Phone Care Team Providers Care Forms Examiner Name Role Phone Alberta Rosales MD Primary Care Provider Neena lBanton CNM Unavailable Encounter Details Date Type Department Care Team (Late st Contact Info) Description 12/28/2022 Procedure Pass [place] Admitting Dept - Virtual Department [address] [place] [address] Social History Tobacco Use Types Packs/Day Years [...] documented as of this encounter Care Teams Forms Examiner Relationship Specialty Start Date End Date Alberta Rosales MD [facility] [address] PCP - General Internal Medicine 05/03/20 Neena Blanton CNM 22 [facility], [facility] [address] [place] [address] [email or web address] Obstetrics and Gynecology 08/21/22 documented as of this encounter Additional Source Comments The information contained in this document represents components of the legal health record. It is not the complete legal health record.[facility]
--- OUTSIDE RECORDS SUMMARY | 2025-02-18 08:17 | XMS_ITS | Encounter Summary ---
Author Organization [facility] Address [address] [place] [address] Phone Care Team Providers Care Intranet Developer Name Role Phone Alberta Rosales MD Primary Care Provider Neena Blanton CNM Unavailable Encounter Details Date Type Department Care Team (Latest Contact Info) Description 07/22/2022 Ancillary Orders [facility] [address] [place], [place] [phone] Neena Blanton CNM 22 [facility], [address] [place] [address] [email or web address] Preexisting diabetes complicating , antepartum Social History [...] documented as of this encounter Care Teams Intranet Developer Relationship Specialty Start Date End Date Alberta Rosales MD [facility] [place] [address] PCP - General Internal Medicine 05/03/20 Neena Blanton CNM 22 [facility], [address] [place] [address] [email or web address] Obstetrics and Gynecology 08/21/22 documented as of this encounter Additional Source Comments The information contained in this document represents components of the legal health record. It is not the complete legal health record.[facility]
--- OUTSIDE RECORDS SUMMARY | 2025-02-18 08:17 | XMS_ITS | Clinical Summary ---
Author Organization [facility] Address [facility] [address] [place] [address] Phone Care Team Providers Care Logistic Manager Name Role Phone Alberta Rosales MD [...] return to office as needed for routine RETAIL ANALYTICS MANAGER care Encounter for induction of labor 12/25/2022 [...] need for pediatric cardiology involvement, unless the pastry supervisor should have concerns, in which case I would ask for a follow-up visit with the baby. Assessment & Plan (12/19/2022 10:14 PM EDT): Review of records found note from Dr Draper 12/04- Dr Draper Plan Testing: No further cardiac testing needed. Medication/Intervention: No cardiac medication/intervention needed. Follow-up: No need for pediatric cardiology involvement, unless the pastry supervisor should have concerns, in which case I would ask for a follow-up visit with the baby. This was found after visit and will be relayed to the patient Assessment & Plan (12/05/2022 6:24 PM EDT): Will plan for EKG and follow up with 6-8wks after . Assessment & Plan (12/04/2022 7:57 AM EDT): Fidelina was seen at [facility] over the weekend for decreased [...] back from a trip to [facility], which was great. She found it harder [...] with her whole family to [facility] for two weeks soon. Obesity affecting in [...] started 06/25/22 - Referral to MIRIAM or delta system freight car cleaner - met with MIRIAM 06/13/22 and is [...] off early and we discussed calling the [facility], adjusted time in range target to be [...] [facility]. She is 11 weeks gestation with [...] continued efforts with physical activity as tolerated Fideilna will follow-up with Chrissie in 2 weeks [...] EST) SODIUM 137 133 - 146 mmol/L [facility] POTASSIUM 3.6 3.3 - 5.1 mmol/L [facility] CHLORIDE 103 96 - 108 mmol/L [facility] CO2 22 21 - 35 mmol/L [facility] BUN 4(L) 6 - 19 mg/dL [facility] CREATININE 0.40(L) 0.5 - 1.5 mg/dL [facility] GLUCOSE 66(L) 70 - 99 mg/dL [facility] ALBUMIN 3.9 3.9 - 4.8 g/dL [facility] TOTAL PROTEIN 7.3 6.5 - 8.0 g/dL [facility] CALCIUM 9.0 8.4 - 10.3 mg/dL [facility] ALKALINE PHOSPHATASE 59 39 - 117 U/L [facility] TOTAL BILIRUBIN 0.3 0.0 - 1.2 mg/dL [facility] AST 21 0 - 37 U/L [facility] ALT 17 0 - 40 U/L [facility] GLOBULIN 3.4 1 - 4.8 g/dL [facility] EGFR >120 >59 mL/min/1.7 3m2 [facility] Comment:Estimated glomerular filtration rate calculated using the CKD-EPI refit equation. ANION GAP 16 10 - 20 mmol/L [facility] Blood 06/25/2022 2:58 PM EST 06/25/2022 3:12 PM EST Padmini Colbert MD LAB BLOOD ORDERABLES Final Result [facility] [address] [place] [address] * Hepatitis C antibody, qualitative (06/25/2022 2:58 PM EST) HCV NON-REACTIV E NON-REACTI VE [facility] Blood 06/25/2022 2:58 PM EST 06/25/2022 3:12 PM EST Padmini Colbert MD LAB BLOOD ORDERABLES Final Result [address] [address] * (ABNORMAL) Hemoglobin A1c (06/25/2022 2:58 PM EST) HEMOGLOBIN A1C 5.9(H) 4.3 - 5.8 % [facility] Blood 06/25/2022 2:58 PM EST 06/25/2022 3:12 PM EST Padmini Colbert MD LAB BLOOD ORDERABLES Final Result Performing Organization Address City/[facility]/ZIP Co de Phone Number [address] [address] * Pap Smear (08/24/2020 12:00 AM EDT) 08/24/2020 08/25/2020 8:5 7 AM EDT Narrative SEE NARRATIVE - 08/31/2020 10:06 AM EDT [address] [address] Truck Rental Clerk: Francesca Vaughan MD RETAIL ANALYTICS MANAGER Cytology Report FINAL DIAGNOSIS A. PAP SMEAR [...] 58, 59, 66, 68) by [place] Onclarity HR-HPV analysis. Clinical correlation is advised. This HPV test was performed at [facility], [address] [place] [address]. This test has been FDA approved for SurePath cervical cytology specimens. The accuracy and precision of this test for all other specimen sources has been verified in the Cytopathology Laboratory of the [facility] and has not been cleared or approved by the U.S. Food and Drug Administration. Clinical correlation is advised. CLINICAL HISTORY Date of Last Menstrual Period: Not Provided Menstrual History: Unknown Other Clinical Conditions: Screening Pap SPECIMEN SOURCE A: PAP SMEAR (SUREPATH) CE Patient Name: JELLYAlannah FIDELINA RODRÍGUEZ RAI : 1990 (Age: 30) Sex: F Institution: [facility] Location: [facility] Date of Collection: 08/24/2020 Date of Reported: 08/31/2020 10:07 Results to: Magui Hoang MD Magui Hoang MD CYTOLOGY ORDERABLES Final Result SEE NARRATIVE from Last 3 Months or Most Recently Relevant to Health Maintenance Insurance [facility] [place] [address] [facility] Advance Directives For more information, please contact: [phone] (9AM - 5PM [facility], Friday-Friday) Documents on File Type Date Recorded Patient Surface Plate Finisher Expl anation Healthcare Proxy 12/30/2022 4:59 PM [...] 9:39 AM 10/03/2018 11:49 AM Care Teams Logistic Manager Relationship Specialty Start Date End Date Alberta Rosales MD [facility] [place] [address] PCP - General Internal Medicine 05/03/20 Neena Blanton CNM 22 [facility], [address] [address] [email or web address] Obstetrics and Gynecology 08/21/22 Additional Source Comments The information contained in this document represents components of the legal health record. It is not the complete legal health record.[facility]
--- OUTSIDE RECORDS SUMMARY | 2025-02-18 08:17 | XMS_ITS | Encounter Summary ---
Author Organization [employer] [facility] Address [address] [place] [address] 7 [place] [address] Care Team Providers Care Plate Conditioner Name Role Phone Unavailable Primary Care Provider Unavailabl e Encounter Details Date Type Department Care Team (Latest Contact Info) Description 09/18/2018 Abstract [facility] CONVERSIONS Dental, Provider, DDS Social [...]
[2025-02-18 08:37] VITALS: BP 100/72; PULSE 80; TEMP 36.7; O2SAT 98; BMI 38.6
--- NOTE | 2025-02-18 08:37 | AM.OFFWIN_ITS ---
Intake Vital Signs 02/18/25 08:37 Height 5 ft 2 in Weight 211 lb BMI 38.6 BP 100/72 Blood Pressure Location Lt brachial Position Sitting Pulse 80 Pulse Source Pulse Oximeter Temp 98.0 F Temp Source Oral Pulse Oximetry (%) 98 Oxygen Delivery Method Room Air Intake Visit Reasons: ep burning sensation when urainating Intake Note: pt presents with peeing with burning x4 days, denies any lower abdominal pain/back pain- OTC fungal cream didn't help Patient Tobacco Use Status: Never used Tobacco Allergies lisinopril Adverse Reaction (Verified 02/18/25 08:43) Cough Do you need a note to return to daycare/school/sports/work: Yes HPI HPI Comments History of Present Illness Details History of Present Illness - The patient is a 34-year-old female pr esenting with burning sensation during urination and vaginal discharge. - The symptoms started approximately fiv e days ago with a burning sensation during urination. - The patient noted a yellow discharge a nd initially self-treated with zene-xjg-ssmhkxn medication for a presumed yeast infection, which did not alleviate the symptoms. - The burning sensation intensified, and the patient observed blood when wiping after urination. - The patient denies any odor associated with the discharge and is not currently menstruating, with her period expected next week. - A urine test showed the presence of wh ite blood cells but no overt infection, prompting a decision to send the sample for culture. Review of Systems - Genitourinary: Reports burning sensati on during urination and yellow vaginal discharge. Denies malodor of discharge. - Hematologic: Reports hematuria. All systems reviewed and are unremarkable except as noted in HPI Physical Exam General: Cooperative, healthy appearing, comfortable, no acute distress and well developed Orientation: Patient oriented x3 Limitations: No limitations Head: Normal to inspection Ears: Hearing grossly normal bilaterally Nose: Normal External nose present Face and sinus: Normal facial exam Eyes: Appearance normal, both eyes and all related structures Neck: Normal visual inspection and Yes full ROM Respiratory: Normal respiratory effort and able to speak in complete sentences. Skin: No rashes or lesions noted Neuro: Patient oriented x3 Extremities: Normal to inspection [facility] Medical History (Updated 02/02/25 @ 08:48 by Caro Szymanski CNM) Encounter for well woman exam with routine gynecological exam Vitamin D deficiency Diabetes mellitus, without long-term current use of insulin HTN (hypertension) Cough due to SINDHU inhibitor Right nephrolithiasis Ureterolithiasis Obesity Dyslipidemia Surgical History History of tubal ligation History of laparoscopic appendectomy Family History Father Unknown family medical history Mother Diabetes mellitus Sister No problems noted. Son No problems noted. Daughter No problems noted. 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 needs: No Hearing needs: No Vision needs: Yes Physical Exam Vital Signs: Last Vital Signs Temp 98.0 F 02/18/25 08:37 Pulse 80 02/18/25 08:37 BP 100/72 02/18/25 08:37 Pulse Ox 98 02/18/25 08:37 Oxygen Delivery Method Room Air 02/18/25 08:37 BMI result Body Mass Index 38.6 Results AMB Urinalysis, Automated UA Leukoctes 70 Jay/uL Last Edit by Amy Taylor CMA on 02/18/25 08:51 UA Nitrite Negative Last Edit by Amy Taylor CMA on 02/18/25 08:51 UA Urobilinogen 0.2 mg/dL Last Edit by Amy Taylor CMA on 02/18/25 08:51 UA Protein 0 mg/dL Last Edit by Amy Taylor CMA on 02/18/25 08:51 UA pH 6.0 Last Edit by Amy Taylor CMA on 02/18/25 08:51 UA Blood 0 Griffin/uL Last Edit by Amy Taylor CMA on 02/18/25 08:51 UA Specific [place] 1.030 Last Edit by Amy Taylor CMA on 02/18/25 08:51 UA Ketone Last Edit by Amy Taylor CMA on 02/18/25 08:51 UA Bilirubin 0 mg/dL Last Edit by Amy Taylor CMA on 02/18/25 08:51 UA Glucose 0 mg/dL Last Edit by Amy Taylor CMA on 02/18/25 08:51 Results Reviewed Results Reviewed: Laboratory Last Values Urine pH (Auto) 6.0 02/18/25 08:44 Specific [place] (Auto) 1.030 02/18/25 08:44 Urine Protein (Auto) 0 mg/dL 02/18/25 08:44 Glucose (UA)(Auto) 0 mg/dL 02/18/25 08:44 Urine Blood (Auto) 0 Griffin/uL 02/18/25 08:44 Urine Nitrite (Auto) Negative 02/18/25 08:44 Urine Bilirubin (Auto) 0 mg/dL 02/18/25 08:44 Urine Urobilinogen (Auto) 0.2 mg/dL 02/18/25 08:44 Leukocyte Esterase (Auto) 70 Jay/uL 02/18/25 08:44 Assessment & Plan Assessment & Plan (1) Vaginal discharge: Code(s): N89.8 - Other specified noninflammatory disorders of vagina Plan: Plan Patient was informed and verbally consented to the use of an ambient scribe for clinic note documentation during this visit. Vaginal discharge and burning - UA 1+ leuks, neg nitrties, neg blood. - A urine culture was ordered to confirm the presence of an infection, with results expected by Friday. - If the culture confirms an infection, an appropriate antibiotic will be prescribed. - The patient was advised to monitor symptoms and return if they worsen over the weekend. - A bacterial vaginosis panel was performed to determine the cause of the discharge, will treat based on results. - The patient was instructed on how to perform a self-swab for the test, which will check for multiple infections. - Results will be communicated to the patient by Friday, with potential treatment to follow based on findings. Orders: Orders AMB Urinalysis Automated Today Z13.9 - Encounter for screening, unspecified Urine Culture Today N39.0 - Urinary tract infection, site not specified Bacterial Vaginosis Panel Today N94.9 - Unspecified condition associated with female genital organs and menstrual cycle Coding Level of Care Code Est Pt Level 3 (94487) Diagnoses Vaginal discharge N89.8
== END 2025-02-18 09:15 | disposition home or self-care (01) ==
PROVIDERS: PCP Internal Medicine; Visit Provider Physician Assistant
DX: Z13.9 Encounter for screening, unspecified (principal); N89.8 Other specified noninflammatory disorders of vagina

== ENCOUNTER 2025-02-18 08:10 | Outpatient (REF) | payer OTHER, SELFPAY ==
[2025-02-18 15:38] LABS: Bacterial Vaginosis PCR NEGATIVE (Negative); Candida Group PCR DETECTED (Not Detect); Candida glab krusei PCR NOT DETECTED (Not Detect); Trichomonas vaginalis PCR NOT DETECTED (Not Detect)
== END 2025-02-18 08:11 | disposition home or self-care (01) ==
LOC: HO.LAB 08:10
PROVIDERS: PCP Internal Medicine; Visit Provider Physician Assistant
DX: N39.0 Urinary tract infection, site not specified (principal); N94.9 Unspecified condition associated with female genital organs and menstrual cycle; N89.8 Other specified noninflammatory disorders of vagina
CPT/HCPCS: 81003; 81515; 87086; 99212

== ENCOUNTER 2025-03-28 06:20 | Outpatient (REF) | payer OTHER, SELFPAY ==
--- OUTSIDE RECORDS SUMMARY | 2025-03-28 06:25 | XMS_ITS | Encounter Summary ---
Author Organization [employer] [facility] Address [address] [place] [address] 7 [place] [address] Care Team Providers Care Registered Clinical Dietitian Name Role Phone Unavailable Primary Care Provider Unavailabl e Encounter Details Date Type Department Care Team (Latest Contact Info) Description 09/18/2018 Abstract [facility] CONVERSIONS Dental, Provider, DDS Social History [...]
--- OUTSIDE RECORDS SUMMARY | 2025-03-28 06:25 | XMS_ITS | Clinical Summary ---
Author Organization [facility] Address [facility] [employer] [facility] [address] [place] [address] Phone Care Team Providers Care Diesel Pile Driver Operator Name Role Phone Alberta Rosales MD Primary [...] return to office as needed for routine SNOW PLOW TRACTOR OPERATOR care Encounter for induction of labor 12/25/2022 [...] need for pediatric cardiology involvement, unless the news librarian should have concerns, in which case I would ask for a follow-up visit with the baby. Assessment & Plan (12/19/2022 10:14 PM EDT): Review of records found note from Dr Draper 12/04- Dr Draper Plan Testing: No further cardiac testing needed. Medication/Intervention: No cardiac medication/intervention needed. Follow-up: No need for pediatric cardiology involvement, unless the news librarian should have concerns, in which case I would ask for a follow-up visit with the baby. This was found after visit and will be relayed to the patient Assessment & Plan (12/05/2022 6:24 PM EDT): Will plan for EKG and follow up with 6-8wks after . Assessment & Plan (12/04/2022 7:57 AM EDT): Fidelina was seen at [facility] over the weekend for decreased movement [...] Recently came back from a trip to [facility], which was great. She found it harder [...] is traveling with her whole family to [facility] for two weeks soon. Obesity affecting in [...] started 06/25/22 - Referral to MIRIAM or sash clamp operator - met with MIRIAM 06/13/22 and is [...] off early and we discussed calling the [facility], adjusted time in range target to be [...] presents for an initial visit in the [facility]. She is 11 weeks gestation with pre-existing [...] complete this topic HEPATITIS C SCREENING Completed 06/25/2022 , 06/25/2022, 03/02/2018, Additional history exists HIV ONE-TIME SCREENING (18-65 YEARS) Completed 06/25/2022 [...] STI (sexually transmitted infection) COMPREHENSIVE METABOLIC PANEL (CMP) Routine 06/25/2022 2:58 PM EST Preexisting diabetes complicating , antepartum Supervision of high risk in first trimester PAP TEST Routine 08/24/2020 12:00 AM EDT from Last 3 Months or Most Recently Relevant to Health Maintenance Results * (ABNORMAL) Comprehensive metabolic panel (06/25/2022 2:58 PM EST) SODIUM 137 133 - 146 mmol/L [facility] POTASSIUM 3.6 3.3 - 5.1 mmol/L [facility] CHLORIDE 103 96 - 108 mmol/L [facility] CO2 22 21 - 35 mmol/L [facility] BUN 4(L) 6 - 19 mg/dL [facility] CREATININE 0.40(L) 0.5 - 1.5 mg/dL [facility] GLUCOSE 66(L) 70 - 99 mg/dL [facility] ALBUMIN 3.9 3.9 - 4.8 g/dL [facility] TOTAL PROTEIN 7.3 6.5 - 8.0 g/dL [facility] CALCIUM 9.0 8.4 - 10.3 mg/dL [facility] ALKALINE PHOSPHATASE 59 39 - 117 U/L [facility] TOTAL BILIRUBIN 0.3 0.0 - 1.2 mg/dL [facility] AST 21 0 - 37 U/L [facility] ALT 17 0 - 40 U/L [facility] GLOBULIN 3.4 1 - 4.8 g/dL [facility] EGFR >120 >59 mL/min/1.7 3m2 [facility] Comment:Estimated glomerular filtration rate calculated using the CKD-EPI refit equation. ANION GAP 16 10 - 20 mmol/L [facility] Blood 06/25/2022 2:58 PM EST 06/25/2022 3:12 PM EST us Padmini Colbert MD LAB BLOOD BKR ORDERABLES F inal Result [facility] [address] [place] [address] * Hepatitis C antibody, qualitative (06/25/2022 2:58 PM EST) HCV NON-REACTIV E NON-REACTI VE [facility] Blood 06/25/2022 2:58 PM EST 06/25/2022 3:12 PM EST Padmini Colbert MD LAB BLOOD BKR ORDERABLES F inal Result Performing Organization Address City/[facility]/ZIP Co de Phone Number [address] [address] * (ABNORMAL) Hemoglobin A1c (06/25/2022 2:58 PM EST) HEMOGLOBIN A1C 5.9(H) 4.3 - 5.8 % [facility] Blood 06/25/2022 2:58 PM EST 06/25/2022 3:12 PM EST Padmini Colbert MD LAB BLOOD BKR ORDERABLES F inal Result Performing Organization Address City/[facility]/ZIP Co de Phone Number [address] [address] * Pap Smear (08/24/2020 12:00 AM EDT) 08/24/2020 08/25/2020 8:5 7 AM EDT Narrative SEE NARRATIVE - 08/31/2020 10:06 AM EDT [address] [address] Senior Product Development Engineer: Francesca Vaughan MD SNOW PLOW TRACTOR OPERATOR Cytology Report FINAL DIAGNOSIS A. PAP SMEAR [...] 56, 58, 59, 66, 68) by [place] Onclarity HR-HPV analysis. Clinical correlation is advised. This HPV test was performed at [facility], [address] [place] [address]. This test has been FDA approved for SurePath cervical cytology specimens. The accuracy and precision of this test for all other specimen sources has been verified in the Cytopathology Laboratory of the [facility] and has not been cleared or approved by the U.S. Food and Drug Administration. Clinical correlation is advised. CLINICAL HISTORY Date of Last Menstrual Period: Not Provided Menstrual History: Unknown Other Clinical Conditions: Screening Pap SPECIMEN SOURCE A: PAP SMEAR (SUREPATH) CE Patient Name: OSORIO FIDELINA RODRÍGUEZ RAI : 1990 (Age: 30) Sex: F Institution[facility] Location: [facility] Date of Collection: 08/24/2020 Date of Reported: 08/31/2020 10:07 Results to: Magui Hoang MD Magui Hoang MD CYTOLOGY ORDERABLES Final Result SEE NARRATIVE from Last 3 Months or Most Recently Relevant to Health Maintenance Insurance [facility] Advance Directives For more information, please contact: [phone] (9AM - 5PM [facility]/[place], Friday-Friday) Documents on File Type Date Recorded Patient Coating Machine Operator Helper Expl anation Healthcare Proxy 12/30/2022 4:59 PM [...] 9:39 AM 10/03/2018 11:49 AM Care Teams Diesel Pile Driver Operator Relationship Specialty Start Date End Date Alberta Rosales MD [facility] [place] [address] PCP - General Internal Medicine 05/03/20 Neena Blanton CNM [address] [place] [address] [email or web address] Obstetrics and Gynecology 08/21/22 Additional Source Comments The information contained in this document represents components of the legal health record. It is not the complete legal health record.[facility]
--- OUTSIDE RECORDS SUMMARY | 2025-03-28 06:25 | XMS_ITS | Encounter Summary ---
Author Organization [facility] Address [address] [place] [address] Phone Care Team Providers Care Manager Leadership Development Name Role Phone Alberta Rosales MD Primary Care Provider Neena Blanton CNM Unavailable Encounter Details Date Type Department Care Team (Latest Contact Info) Description 07/22/2022 Ancillary Orders [facility] [address] [place], [place] [phone] Neena Blanton CNM 22 [facility], [address] [place] [address] [email or web address] Preexisting diabetes complicating , antepartum Social History [...] documented as of this encounter Care Teams Manager Leadership Development Relationship Specialty Start Date End Date Alberta Rosales MD [facility] [place] [address] PCP - General Internal Medicine 05/03/20 Neena Blanton CNM 22 [facility], [address] [place] [address] [email or web address] Obstetrics and Gynecology 08/21/22 documented as of this encounter Additional Source Comments The information contained in this document represents components of the legal health record. It is not the complete legal health record.[facility]
--- OUTSIDE RECORDS SUMMARY | 2025-03-28 06:25 | XMS_ITS | Encounter Summary ---
Author Organization [facility] Address [facility] [address] [place] [address] Phone Care Team Providers Care Casing Running Machine Tender Name Role Phone Alberta Rosales MD Primary Care Provider Neena Blanton CNAshley Unavailable Encounter Details Date Type Department Care Team (Late st Contact Info) Description 12/11/2022 Transcribe Orders [facility] Specimen Processing [address] [place] [address] Alberta Rosales MD [facility] [place] [address] Social History Tobacco Use Types Packs/Day Years [...] 2:32 PM EDT Oniel Lambert, DEAN * [place] Suicide Severity Rating Scale (Screener/Recent Self-Report) Question [...] documented as of this encounter Care Teams Casing Running Machine Tender Relationship Specialty Start Date End Date Alberta Rosales MD [address] [facility] [place] [address] PCP - General Internal Medicine 05/03/20 Neena Blanton CNM 22 [facility] [address] [place] [address] [email or web address] Obstetrics and Gynecology 08/21/22 documented as of this encounter Additional Source Comments The information contained in this document represents components of the legal health record. It is not the complete legal health record.[facility]
--- OUTSIDE RECORDS SUMMARY | 2025-03-28 06:25 | XMS_ITS | Clinical Summary ---
Author Organization [employer] Address [address] [facility] [address]t [place] [address] Care Team Providers Care Real Estate Processor Name Role Phone Unavailable Primary Care Provider [...] 07/29/2019 HPV/Cotest 07/29/2019 COVID-19 Vaccine (1 - 2024-2 6 season) 2024 Influenza Vaccine (#1) 2024 Zoster [...]
--- OUTSIDE RECORDS SUMMARY | 2025-03-28 06:25 | XMS_ITS | Encounter Summary ---
Author Organization [facility] Address [facility] [address] [place] [address] Phone Care Team Providers Care Bottom Crane Operator Name Role Phone Alberta Rosales MD Primary Care Provider Neena Blanton CNM Unavailable Encounter Details Date Type Department Care Team (Late st Contact Info) Description 12/28/2022 Procedure Pass [place] Admitting Dept - Virtual Department [address] [place] [address] Social History Tobacco Use Types Packs/Day Years [...] documented as of this encounter Care Teams Bottom Crane Operator Relationship Specialty Start Date End Date Alberta Rosales MD [facility] [place] [id number] PCP - General Internal Medicine 05/03/20 Neena Blanton CNM 22 [facility] [address] [place] [address] [email or web address] Obstetrics and Gynecology 08/21/22 documented as of this encounter Additional Source Comments The information contained in this document represents components of the legal health record. It is not the complete legal health record.[facility]
[2025-03-28 11:49] LABS: Alanine Aminotransferase 83 U/L (0-31); Albumin Level 4.5 g/dL (3.5-5.0); Alkaline Phosphatase 63 U/L (39-117); Anion Gap 12 (12-20); Aspartate Amino Transferase 66 U/L (5-31); Blood Urea Nitrogen 9 mg/dL (9-16); Calcium 8.9 mg/dL (8.4-10.2); Carbon Dioxide 22 mmol/L (22-29); Chloride 108 mmol/L (96-108); Cholesterol 126 mg/dL (<200); Estimated Glomerular Filt Rate > 60; HDL Cholesterol 32 mg/dL (>40); Potassium 3.9 mmol/L (3.3-5.1); Sodium 138 mmol/L (135-145); Total Protein 7.2 g/dL (6.5-8.0); Triglycerides 154 mg/dL (<150)
== END 2025-03-28 06:21 | disposition home or self-care (01) ==
LOC: HO.HMGCLDS 06:20
PROVIDERS: PCP Internal Medicine; Visit Provider Internal Medicine
DX: I10 Essential (primary) hypertension (principal); E11.9 Type 2 diabetes mellitus without complications; E78.5 Hyperlipidemia, unspecified; E55.9 Vitamin D deficiency, unspecified
CPT/HCPCS: 36415; 80053; 80061; 82306; 83036

== ENCOUNTER 2025-03-30 08:02 | Outpatient (AMB) | payer OTHER, SELFPAY ==
--- OUTSIDE RECORDS SUMMARY | 2025-03-30 08:14 | XMS_ITS | Encounter Summary ---
Author Organization [facility] Address [address] [employer] [address] [employer] [address] [place] [address] Phone Care Team Providers Care School Cafeteria Cook Name Role Phone Alberta Rosales MD Primary Care Provider Neena Blanton CNM Unavailable Encounter Details Date Type Department Care Team (Latest Contact Info) Description 07/22/2022 Ancillary Orders [facility] [address] [place], [place] [id number] Neena Blanton CNM 22 [facility], [address] [place] [phone] [email or web address] Preexisting diabetes complicating , antepartum Social History [...] documented as of this encounter Care Teams School Cafeteria Cook Relationship Specialty Start Date End Date Alberta Rosales MD [facility] [place] [address] PCP - General Internal Medicine 05/03/20 Neena Blanton CNM 22 [facility], [address] [place] [address] [email or web address] Obstetrics and Gynecology 08/21/22 documented as of this encounter Additional Source Comments The information contained in this document represents components of the legal health record. It is not the complete legal health record.[facility]
--- OUTSIDE RECORDS SUMMARY | 2025-03-30 08:14 | XMS_ITS | Clinical Summary ---
Author Organization [employer] Address [address] [facility] 7t [place] [address] Care Team Providers Care Grey Percher Name Role Phone Unavailable Primary Care Provider [...]
--- OUTSIDE RECORDS SUMMARY | 2025-03-30 08:14 | XMS_ITS | Encounter Summary ---
Author Organization [facility] Address [facility] [address] [place] [address] Phone Care Team Providers Care Joint Terminal Attack Controller Name Role Phone Alberta Rosales MD Primary Care Provider Neena Blanton CNAshley Unavailable Encounter Details Date Type Department Care Team (Late st Contact Info) Description 12/11/2022 Transcribe Orders [facility] Specimen Processing [address] [place] [address] Alberta Rosales MD [facility] [place] [address] Social History Tobacco Use Types Packs/Day Years [...] 2:32 PM EDT Oniel Lambert, DEAN * [place] Suicide Severity Rating Scale (Screener/Recent Self-Report) Question [...] documented as of this encounter Care Teams Joint Terminal Attack Controller Relationship Specialty Start Date End Date Alberta Rosales MD [address] [facility] [address] PCP - General Internal Medicine 05/03/20 Neena Blanton CNM 22 [facility], [facility] [address] [place] [address] [email or web address] Obstetrics and Gynecology 08/21/22 documented as of this encounter Additional Source Comments The information contained in this document represents components of the legal health record. It is not the complete legal health record.[facility]
--- OUTSIDE RECORDS SUMMARY | 2025-03-30 08:14 | XMS_ITS | Encounter Summary ---
Author Organization [facility] Address [facility] [address] [place] [address] Phone Care Team Providers Care Boiler Setter Name Role Phone Alberta Rosales MD Primary Care Provider Neena Blanton CNM Unavailable Encounter Details Date Type Department Care Team (Late st Contact Info) Description 12/28/2022 Procedure Pass [place] Admitting Dept - Virtual Department [address] [place] [address] Social History Tobacco Use Types Packs/Day Years [...] documented as of this encounter Care Teams Boiler Setter Relationship Specialty Start Date End Date Alberta Rosales MD [facility] [place] [address] PCP - General Internal Medicine 05/03/20 Neena Blanton CNM 22 [facility], [facility] [address] [place] [address] [email or web address] Obstetrics and Gynecology 08/21/22 documented as of this encounter Additional Source Comments The information contained in this document represents components of the legal health record. It is not the complete legal health record.[facility]
--- OUTSIDE RECORDS SUMMARY | 2025-03-30 08:14 | XMS_ITS | Encounter Summary ---
Author Organization [facility] Address [address] [place] [address] 7 [place] [address] Care Team Providers Care Data Administrator Name Role Phone Unavailable Primary Care Provider Unavailabl e Encounter Details Date Type Department Care Team (Latest Contact Info) Description 09/18/2018 Abstract [facility] CONVERSIONS Dental, Provider, DDS Social History Tobacco [...]
--- OUTSIDE RECORDS SUMMARY | 2025-03-30 08:14 | XMS_ITS | Clinical Summary ---
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 Assessment & Plan (12/19/2022 10:14 PM EDT): Review of records found note from Dr Draper 12/04- Dr Draper Plan Testing: No further cardiac testing needed. Medication/Intervention: No cardiac medication/intervention needed. Follow-up: No need for pediatric cardiology involvement, unless the pile driver operator helper should have concerns, in which case I would ask for a follow-up visit with the baby. This was found after visit and will be relayed to the patient Assessment & Plan (12/05/2022 6:24 PM EDT): Will plan for EKG and follow up with 6-8wks after . Assessment & Plan (12/04/2022 7:57 AM EDT): Fidelina was seen at [facility] over the weekend for decreased movement [...] Recently came back from a trip to [facility], which was great. She found it [...] is traveling with her whole family to [facility] for two weeks soon. Obesity affecting [...] started 06/25/22 - Referral to MIRIAM or diesel powerplant mechanic - met with MIRIAM 06/13/22 and is [...] off early and we discussed calling the indoo.rs, adjusted time in range target to be [...] [facility]. She is 11 weeks gestation with pre-existing [...] EST) SODIUM 137 133 - 146 mmol/L [facility] POTASSIUM 3.6 3.3 - 5.1 mmol/L [facility] CHLORIDE 103 96 - 108 mmol/L [facility] CO2 22 21 - 35 mmol/L [facility] BUN 4(L) 6 - 19 mg/dL [facility] CREATININE 0.40(L) 0.5 - 1.5 mg/dL [facility] GLUCOSE 66(L) 70 - 99 mg/dL [facility] ALBUMIN 3.9 3.9 - 4.8 g/dL [facility] TOTAL PROTEIN 7.3 6.5 - 8.0 g/dL [facility] CALCIUM 9.0 8.4 - 10.3 mg/dL [facility] ALKALINE PHOSPHATASE 59 39 - 117 U/L [facility] TOTAL BILIRUBIN 0.3 0.0 - 1.2 mg/dL [facility] AST 21 0 - 37 U/L [facility] ALT 17 0 - 40 U/L [facility] GLOBULIN 3.4 1 - 4.8 g/dL [facility] EGFR >120 >59 mL/min/1.7 3m2 [facility] Comment:Estimated glomerular filtration rate calculated using the CKD-EPI refit equation. ANION GAP 16 10 - 20 mmol/L [facility] Blood 06/25/2022 2:58 PM EST 06/25/2022 3:12 PM EST us Padmini Colbert MD LAB BLOOD BKR ORDERABLES F inal Result [facility] [address] [place] [address] * Hepatitis C antibody, qualitative (06/25/2022 2:58 PM EST) HCV NON-REACTIV E NON-REACTI VE [facility] Blood 06/25/2022 2:58 PM EST 06/25/2022 3:12 PM EST Padmini Colbert MD LAB BLOOD BKR ORDERABLES F inal Result Performing Organization Address City/[facility]/ZIP Co de Phone Number [address] [address] * (ABNORMAL) Hemoglobin A1c (06/25/2022 2:58 PM EST) HEMOGLOBIN A1C 5.9(H) 4.3 - 5.8 % [facility] Blood 06/25/2022 2:58 PM EST 06/25/2022 3:12 PM EST Padmini Colbert MD LAB BLOOD BKR ORDERABLES F inal Result Performing Organization Address City/[facility]/ZIP Co de Phone Number [address] [address] * Pap Smear (08/24/2020 12:00 AM EDT) 08/24/2020 08/25/2020 8:5 7 AM EDT Narrative SEE NARRATIVE - 08/31/2020 10:06 AM EDT [address] [address] Road Service Locksmith: Francesca Vaughan MD PERSONAL HEALTH COACH Cytology Report FINAL DIAGNOSIS A. PAP SMEAR [...] 56, 58, 59, 66, 68) by [employer] HR-HPV analysis. Clinical correlation is advised. This HPV test was performed at [facility], [address] [place] [address]. This test has been FDA approved for [facility] cervical cytology specimens. The accuracy and precision of this test for all other specimen sources has been verified in the Cytopathology Laboratory of the [facility] and has not been cleared or approved by the U.S. Food and Drug Administration. Clinical correlation is advised. CLINICAL HISTORY Date of Last Menstrual Period: Not Provided Menstrual History: Unknown Other Clinical Conditions: Screening Pap SPECIMEN SOURCE A: PAP SMEAR (SUREPATH) CE Patient Name: OSORIO FIDELINA RODRÍGUEZ RAI : 1990 (Age: 30) Sex: F Institution: [facility] Location: [facility] Date of Collection: 08/24/2020 Date of Reported: 08/31/2020 10:07 Results to: Magui Hoang MD Magui Hoang MD CYTOLOGY ORDERABLES Final Result SEE NARRATIVE from Last 3 Months or Most Recently Relevant to Health Maintenance Insurance [facility] Advance Directives For more information, please contact: [phone] (9AM - 5PM [place], Friday-Friday) Documents on File Type Date Recorded Patient Systems Integration Analyst Expl anation Healthcare Proxy 12/30/2022 4:59 PM [...] 9:39 AM 10/03/2018 11:49 AM Care Teams Physicist Solid Earth Relationship Specialty Start Date End Date Alberta Rosales MD [facility] [place] [address] PCP - General Internal Medicine 05/03/20 Neena Blanton CNM [address] [place] [address] [email or web address] Obstetrics and Gynecology 08/21/22 Additional Source Comments The information contained in this document represents components of the legal health record. It is not the complete legal health record.[facility]
[2025-03-30 08:44] VITALS: BP 100/60; PULSE 76; RESP 16; TEMP 36.7; O2SAT 98; BMI 38.8
--- NOTE | 2025-03-30 08:44 | A.OFFPC_ITS ---
Vital Signs 03/30/25 08:44 Height 5 ft 2 in Weight 212 lb BMI 38.8 BP 100/60 Blood Pressure Location Rt brachial Position Sitting Respiration 16 Pulse 76 Pulse Source Pulse Oximeter Temp 98.1 F Temp Source Oral Pulse Oximetry (%) 98 Oxygen Delivery Method Room Air Intake Visit Reasons: follow up DM, htn, lipids Intake Note: Pt is here today for her f/u DM, HTN and lipids Internal Salesperson Required: No Allergies lisinopril Adverse Reaction (Verified 03/30/25 09:07) Cough Medication List - Last Reconciled 03/30/25 by Alberta Rosales MD atorvastatin 10 mg PO DAILY cholecalciferol (vitamin D3) 50 mcg PO DAILY fluconazole 150 mg PO Q3D losartan 25 mg PO DAILY metformin 1,000 mg PO BIDWMEAL 3 months pyridoxine (vitamin B6) 100 mg PO DAILY 90 days Tobacco use date assessed: 03/30/25 Dental Screening Dental Screen Date: 03/30/25 Did you have a dental visit in the last 12 months?: Yes Did you have a dental problem in the last 6 months where you did not have access to dental care?: No Was dental information given to patient?: Patient has dentist HPI follow up DM, htn, lipids HPI Details The patient is a 34-year-old female presenting for follow-up on diabetes management .. She has a history of diabetes mellitus with hyperglycemia, currently being treated with metformin. Her last hemoglobin A1c was 8%. She was previously on Ozempic, which was effective in treating her diabetes and denies having had any side effects. However, coverage for Ozempic was stopped after she changed her insurance plan. . She is unable to take Jardiance due to having frequent yeast infection when she was taking the medication. Her medical history also includes hypertension, which is well controlled on losartan 25 mg daily. She states that she already received her flu shot at work. [facility] Medical History (Updated 03/30/25 @ 09:15 by Alberta Rosales MD) Diabetes mellitus with hyperglycemia, without long-term current use of insulin Encounter for well woman exam with routine gynecological exam Vitamin D deficiency Diabetes mellitus, without long-term current use of insulin HTN (hypertension) Cough due to SINDHU inhibitor Right nephrolithiasis Ureterolithiasis Obesity Dyslipidemia Surgical History History of tubal ligation History of laparoscopic appendectomy Family History Father Unknown family medical history Mother Diabetes mellitus Sister No problems noted. Son No problems noted. Daughter No problems noted. 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 needs: No Hearing needs: No Vision needs: Yes Questionnaire Thrive Questionnaire Date Thrive assessed: 06/29/24 I am a: Patient What is your living situation today?: I have a steady place to live Within the past 12 months, did the food you bought not last and you didn't have the money to get more?: Never true Within the past 12 months, did you worry whether your food would run out before you got money to buy more?: Never true Do you have trouble paying for medicines?: No Do you have trouble getting transportation to medical appointments?: No Do you have trouble paying your heating and electricity bill?: No Do you have trouble taking care of your child, family member or friend?: No Do you have trouble with day-to-day activities such as bathing, preparing meals, shopping, managing finances, etc.?: No Are you currently unemployed and looking for a job?: No Are you interested in more education?: Yes Please select the resources that you would like help with: None Currently or been in a relationship where the following occur: No concerns reported THRIVE Score: 0 ANDRESSA-7 AMB Questionnaire ANDRESSA-7 Date ANDRESSA - 7 assessed: 06/29/24 Source: Developed by Drs. Juan Baker, Yessica Lam, Lexa Sheriff and colleagues, with an educational agnieszka from [employer]. Review of Systems Const All systems reviewed & are unremarkable except as noted in HPI and below Reports as per HPI ENT Reports no additional complaints Card Reports no additional complaints Resp Reports no additional complaints GI Reports no additional complaints Musc Reports no additional complaints Neuro Reports no additional complaints Psych Reports no additional complaints Endo Reports no additional complaints Walter/Lymph Reports no additional complaints Aller/Immun Reports no additional complaints Physical exam (Primary Care) Vital Signs: Last Vital Signs Temp 98.1 F 03/30/25 08:44 Pulse 76 03/30/25 08:44 Resp 16 03/30/25 08:44 BP 100/60 03/30/25 08:44 Pulse Ox 98 03/30/25 08:44 Oxygen Delivery Method Room Air 03/30/25 08:44 BMI result Body Mass Index 38.8 Tobacco/Smoking Status: Tobacco use Status Tobacco use date assessed 03/30/25 03/30/25 08:51 Patient Tobacco Use Status Never used Tobacco 03/30/25 08:46 e-Cigarette/Vaping Use Never Used 03/30/25 08:46 Thrive Assessment: Date of Thrive Assessment Date Thrive assessed 06/29/24 03/30/25 08:46 Currently or been in a relationship where the following occur: No concerns reported Const General: no acute distress and alert Orientation/consciousness: patient oriented x3 HENMT Head: Yes normocephalic Ears: external ears normal General nose exam: Normal external nose present Mouth: Normal oral and palatal mucosa present and moist mucous membranes Eyes General: appearance normal, both eyes and all related structures Neck Neck: Yes full ROM, Yes no lymphadenopathy and Yes supple Resp Effort & Inspection: normal respiratory effort and able to speak in complete sentences Auscultation: clear to auscultation bilaterally Cardio Rate: regular rate Rhythm: regular rhythm Heart sounds: S1 normal heart sound present and S2 normal heart sound present GI Inspection: Yes obesity and Yes other (striae present) Palpation (GI): Soft to palpation, nontender and no masses Auscultation: normal bowel sounds General: Yes no CVA tenderness and Yes deferred (Sees [facility]) Back/Spine/Pelvis Back: no CVA tenderness and No back tenderness Skin General skin exam: no rashes or lesions noted Neuro General: patient oriented x3, gait normal, tone normal, moves all extremities, Normal light touch and pain sensation, no focal motor deficits and normal sensation to monofilament Cranial nerves: Yes CN's II-XII intact bilaterally Cognition (Neuro): normal cognition Extrem General: Yes full ROM, Yes no joint enlargement, Yes no clubbing, cyanosis or edema and Yes no calf tenderness Psych Appearance: grossly normal Mental Status: mental status grossly normal Speech and movement: Normal speech and movement present Affect: normal affect Results Reviewed Results Reviewed: Laboratory Tests 06/29/24 12/24/24 03/28/25 06:25 08:33 06:53 Estimat Average Glucose 143 183 Hemoglobin A1c % 6.6 H 8.0 H Microalb/Creat Ratio 14.8 Name: Arnold Mayorga Age/Sex: 34/F : 1990 Unit#: [id number] Attend Dr: Alberta Rosales MD Re03/28/25 Status: DEP REF Location: [facility] Disch: SPEC : [id number] MARY: 03/28/25 STATUS: COMP REQ : [id number] RECD: 03/28/[address]: Alberta Rosales MD COMP: 03/28/25 ENTERED: 03/28/[address]: ORDERED: CMP Fast, Lipid Panel, Vitamin D 25-OH Test Result Flag Reference Sodium 138 135-145 mmol/L Potassium 3.9 3.3-5.1 mmol/L CL 108 96-108 mmol/L CO2 22 22-29 mmol/L Gap 12 12-20 BUN 9 9-16 mg/dL Creat 0.56 0.5-1.4 mg/dL eGFR > 60 Chronic Kidney Disease: Estimated GFR < 60 mL/min/1.73m2 Severe Kidney Disease: Estimated GFR < 15 mL/min/1.73m2 FBS 218 H 60-99 mg/dL A fasting glucose of 126 mg/dl or greater on more than one occasion is considered diagnostic of diabetes. CA 8.9 8.4-10.2 mg/dL Total Bili 0.4 0.0-1.0 mg/dL AST (GOT) 66 H 5-31 U/L ALT (GPT) 83 H 0-31 U/L Protein, Total 7.2 6.5-8.0 g/dL Alb 4.5 3.5-5.0 g/dL Triglyceride 154 H <150 mg/dL Desirable Triglyceride: less than 150 mg/dL Borderline High Triglyceride 150-199 mg/dL High Triglyceride: 200-499 mg/dL Very High Triglyceride: greater than or equal to 5OO mg/dL Cholesterol 126 <200 mg/dL Desirable Cholesterol: less than 200 mg/dL Borderline High Cholesterol: 200-239 mg/dL High Cholesterol: greater than 239 mg/dL LDL Calculated 64 <100 mg/dL Desirable LDL: less than 100 mg/dL Near Optimal/Above Optimal LDL: 110-129 mg/dL Borderline High LDL: 130-159 mg/dL High LDL: 160-189 mg/dL Very High LDL: greater than or equal to 190 mg/dL HDL 32 L >40 mg/dL Desirable HDL: greater than 40 mg/dL Note: This HDL assay may give artificially low results in patients with liver disease. Alk Phos 63 39-117 U/L Vitamin D 25-OH 44.0 >30 ng/mL Health Based Reference Values* < 20 ng/mL Deficient 20-30 ng/mL Insufficient > 30 ng/mL Sufficient Coding Level of Care Code Est Pt Level 4 (43139) Diagnoses Diabetes mellitus with hyperglycemia, without long-term current use of insulin E11.65 Dyslipidemia E78.5 Primary hypertension I10 Hypertension type: primary hypertension Assessment & Plan Assessment & Plan (1) Diabetes mellitus with hyperglycemia, without long-term current use of insulin: Code(s): E11.65 - Type 2 diabetes mellitus with hyperglycemia Category: Medical Plan: For control of diabetes on metformin alone, will have her continue metformin a 1000 mg 1 tablet twice a day, and will add again Ozempic 0.25 mg injected once a week subcutaneously. Again discussed possible side effects of medication and proper technique on administering injection. Continue with adherence to healthy eating habits and regular exercise, will repeat another hemoglobin A1c electrolytes liver function and lipid panel in July 2025 (2) Dyslipidemia: Code(s): E78.5 - Hyperlipidemia, unspecified Category: Medical Plan: Reviewed recent fasting lipid profile with patient with levels within normal limits . Continue atorvastatin 10 mg daily , in addition to adherence to low-cholesterol diet and regular exercise, at least 30 minutes 3 to 4 times a week. Advised patient to make healthy food choices, eat more fruits, vegetables, whole grains, wild caught fish and low-fat dairy. Limit amount of meat and fried or fatty food products, as well as processed foods and fast fo ods. Follow-up scheduled with repeat fasting lipid panel in July 2025 (3) HTN (hypertension): Code(s): I10 - Essential (primary) hypertension Category: Medical Qualifiers: Hypertension type: primary hypertension Qualified Code(s): I10 - Essential (primary) hypertension Plan: Blood pressure at goal of less than 130/80. Continue with goes 25 mg once a. Reinforced importance of following a low sodium diet, getting regular exercise, and lowering stress levels. Orders: Orders Hemoglobin A1c 07/20/25.65 - Type 2 diabetes mellitus with hyperglycemia, E55.9 - Vitamin D deficiency, unspecified, E66.01 - Morbid (severe) obesity due to excess calories, E78.5 - Hyperlipidemia, unspecified, I10 - Essential (primary) hypertension, Z68.39 - Body mass index [BMI] 39.0-39.9, adult Lipid Panel 07/20/25.65 - Type 2 diabetes mellitus with hyperglycemia, E55.9 - Vitamin D deficiency, unspecified, E66.01 - Morbid (severe) obesity due to excess calories, E78.5 - Hyperlipidemia, unspecified, I10 - Essential (primary) hypertension, Z68.39 - Body mass index [BMI] 39.0-39.9, adult Microalbumin, Random (w Creat) 07/20/25.65 - Type 2 diabetes mellitus with hyperglycemia, E55.9 - Vitamin D deficiency, unspecified, E66.01 - Morbid (severe) obesity due to excess calories, E78.5 - Hyperlipidemia, unspecified, I10 - Essential (primary) hypertension, Z68.39 - Body mass index [BMI] 39.0- 39.9, adult Vitamin D 25-OH Total 07/20/25.65 - Type 2 diabetes mellitus with hyperglycemia, E55.9 - Vitamin D deficiency, unspecified, E66.01 - Morbid (severe) obesity due to excess calories, E78.5 - Hyperlipidemia, unspecified, I10 - Essential (primary) hypertension, Z68.39 - Body mass index [BMI] 39.0- 39.9, adult Comprehensive Holmes. Panel Fast 07/20/25 E11.65 - Type 2 diabetes mellitus with hyperglycemia, E55.9 - Vitamin D deficiency, unspecified, E66.01 - Morbid (severe) obesity due to excess calories, E78.5 - Hyperlipidemia, unspecified, I10 - Essential (primary) hypertension, Z68.39 - Body mass index [BMI] 39.0- 39.9, adult Medications: New Ozempic (semaglutide) for 4 weeks 0.25 mg (0.368 mL) subcut QWEEK 3 mL 5RF Poorly-controlled diabetes, last hemoglobin A1c 8% 30 days NS E11.65 - Type 2 diabetes mellitus with hyperglycemia, E66.01 - Morbid (severe) obesity due to excess calories, I10 - Essential (primary) hypertension, Z68.39 - Body mass index [BMI] 39.0-39.9, adult
== END 2025-03-30 11:14 | disposition home or self-care (01) ==
LOC: HO.HMCC 08:03
PROVIDERS: PCP Internal Medicine; Visit Provider Internal Medicine
DX: E11.65 Type 2 diabetes mellitus with hyperglycemia (principal); E78.5 Hyperlipidemia, unspecified; I10 Essential (primary) hypertension

== ENCOUNTER → 2025-03-30 08:02 | Outpatient (BNVA) | payer OTHER, SELFPAY | PROVIDERS: PCP Internal Medicine; Visit Provider Internal Medicine | DX: I10 Essential (primary) hypertension (principal); E11.65 Type 2 diabetes mellitus with hyperglycemia; E78.5 Hyperlipidemia, unspecified; E55.9 Vitamin D deficiency, unspecified; E66.01 Morbid (severe) obesity due to excess calories; Z68.39 Body mass index [BMI] 39.0-39.9, adult | CPT/HCPCS: 99212 ==